=== PATIENT | female | born 1965 ===

== ENCOUNTER 2022-03-22 10:36 | Emergency (ER) | payer MEDICARE, SELFPAY ==
--- NOTE | ~2022-03-22 | XR_ITS ---
EXAMINATION: XR CHEST CLINICAL INFORMATION: Shortness of breath COMPARISON: None TECHNIQUE: 2 views of the chest were obtained. FINDINGS: Normal symmetric lung volumes. No parenchymal consolidation. No pleural effusion. No pneumothorax. Cardiomediastinal silhouette and pulmonary vascularity are within normal limits. No acute osseous abnormalities. XR/XR chest 2V IMPRESSION: Clear lungs
--- NOTE | 2022-03-22 10:48 | ECG_ITS ---
Test Reason : chest pain Blood Pressure : / mmHG Vent. Rate : 113 BPM Atrial Rate : 113 BPM P-R Int : 156 ms QRS Dur : 086 ms QT Int : 312 ms P-R-T Axes : 054 -09 019 degrees QTc Int : 427 ms Sinus tachycardia Minimal voltage criteria for LVH, may be normal variant ( R in aVL ) Borderline ECG When compared with ECG of 31-MAR-2018 10:26, Vent. rate has increased BY 46 BPM Referred By: Generic ED Physician Electronically Signed By:NICK KELLY MD
[2022-03-22 11:11] VITALS: BP 133/76; PULSE 121; RESP 16; TEMP 36.9; O2SAT 98; BMI 39.6
--- NOTE | 2022-03-22 11:12 | ED.GENADULT ---
HPI - General Adult General Chief complaint: Dizziness Stated complaint: Dizzy/Chest pain Time Seen by Provider: 03/22/22 14:35 Related Data Previous Rx's Medication Instructions Recorded albuterol sulfate 90 mcg/actuation 2 inh inhalation Q4-6H PRN 03/23/22 breath activated powder inhaler shortness of breath or wheezing #1 ea amoxicillin 875 mg-potassium 1 tab PO BID 10 days #20 tabs 03/23/22 clavulanate 125 mg tablet ciprofloxacin 0.3 %-dexamethasone 4 drp otic (ears) BID 7 days #7.5 03/23/22 0.1 % ear drops,suspension mL (Ciprodex) doxycycline hyclate 100 mg capsule 100 mg PO BID 10 days #20 caps 03/23/22 ondansetron 4 mg disintegrating 4 mg PO Q6H PRN nausea and 03/23/22 tablet vomiting #10 tabs prednisone 20 mg tablet 40 mg PO DAILY 5 days #10 tabs 03/23/22 Allergies Allergy/AdvReac Type Severity Reaction Status Date / Time No Known Allergies Allergy Verified 03/22/22 20:29 [No Known Allergies*] PMFSH Social History Social History Advance Directives: No Advance Directives Information Provided: No Physical Exam ED Vital Signs: Vital Signs - 24 hr 03/22/22 11:11 Temperature 98.5 F Pulse Rate 121 H Respiratory Rate 16 Blood Pressure 133/76 Pulse Oximetry 98 Oxygen Delivery Method Room Air BMI result Body Mass Index 39.6 Course Course Course Narrative: 56F TKA in August not feeling well, SOB and pain on right with deep inspiration, reports melena, low grade fever. VS Reviewed GEN: mild discomfort EARS: wnl Throat: wnl LUNGS: CTAB CVS: ST, no murmurs Discharge Plan Discharge Clinical Impression: SOB (shortness of breath) Patient Disposition: Elopement Prescriptions: No Action doxycycline hyclate 100 mg capsule 100 mg PO BID 10 Days Qty: 20 0RF amoxicillin-pot clavulanate 875-125 mg tablet 1 tab PO BID 10 Days Qty: 20 0RF ciprofloxacin-dexamethasone [Ciprodex] 0.3-0.1 % drops,suspension 4 drp otic (ears) BID 7 Days Qty: 7.5 0RF prednisone 20 mg tablet 40 mg PO DAILY 5 Days Qty: 10 0RF albuterol sulfate 90 mcg/actuation aerosol powdr breath activated 2 inh inhalation Q4-6H PRN (Reason: shortness of breath or wheezing) Qty: 1 0RF ondansetron 4 mg tablet,disintegrating 4 mg PO Q6H PRN (Reason: nausea and vomiting) Qty: 10 0RF Interventions: ED Discharge Assessment Last Done: 03/22/22 19:08 Discharge Date/Time: 03/22/22 19:09
[2022-03-22 11:40] LABS: MANUAL DIFF FLAG NO
[2022-03-22 11:46] LABS: Basophils Percent Auto 0.3 % (0-2); Eosinophils Percent Auto 0.6 % (0-4); Hematocrit 43.2 % (37.0-47.0); Hemoglobin 14.2 g/dl (12.0-16.0); Imm Gran Abs Auto 0.01 X10*3/uL (0.00-0.03); Imm Gran Pct Auto 0.2 % (0.0-0.4); Lymphocytes Absolute Auto 1.2 X10*3/uL (1.2-4.9); Lymphocytes Percent Auto 19.4 % (20-40); Mean Corpuscular HGB Conc 32.9 g/dl (31.0-35.0); Mean Corpuscular Hemoglobin 28.6 pg (27.0-33.0); Mean Corpuscular Volume 86.9 fL (80.0-98.0); Mean Platelet Volume 10.6 fL (9.4-12.3); Monocytes Absolute Auto 0.6 X10*3/uL (0.1-1.2); Monocytes Percent Auto 9.6 % (2-11); Neutrophils Absolute Auto 4.4 x10*3/uL (2.0-8.3); Neutrophils Percent Auto 69.9 % (45-73); Platelet Count 192 X10*3/uL (160-400); Red Blood Count 4.97 X10*6/uL (4.20-5.50); Red Cell Distribution Width 13.7 % (11.0-16.0); White Blood Count 6.4 X10*3/uL (4.8-10.8)
[2022-03-22 11:47] LABS: INTERNATIONAL NORM RATIO 1.1 (0.9-1.1); Prothrombin Time 12.8 SEC (10.0-13.1)
[2022-03-22 11:49] LABS: D Dimer High Sensitivity 650 NG/ML
[2022-03-22 12:05] LABS: Troponin-I High Sensitivity < 3.5 ng/L (<3.5-17.0)
[2022-03-22 12:12] LABS: Alanine Aminotransferase 36 U/L (0-31); Albumin Level 4.4 g/dL (3.5-5.0); Alkaline Phosphatase 63 U/L (39-117); Anion Gap 12 (12-20); Aspartate Amino Transferase 31 U/L (5-31); Bilirubin Total 0.4 mg/dL (0.0-1.0); Blood Urea Nitrogen 15 mg/dL (9-16); Calcium 9.3 mg/dL (8.4-10.2); Carbon Dioxide 24 mmol/L (22-29); Chloride 107 mmol/L (96-108); Estimated Glomerular Filt Rate > 60; Glucose Random 135 mg/dL (60-115); Potassium 3.6 mmol/L (3.3-5.1); Sodium 139 mmol/L (135-145); Total Protein 7.3 g/dL (6.5-8.0)
[2022-03-22 12:17] LABS: Influenza A PCR NEGATIVE (Negative); Influenza B PCR NEGATIVE (Negative); Resp Syncy Virus RNA Qual PCR NEGATIVE (Negative); SARS COV2 PCR INHOUSE NEGATIVE (Negative)
--- NOTE | 2022-03-22 19:08 | PC.NURSE ---
pt not in waiting room. eloped on prev shift.
== END 2022-03-22 19:09 | disposition left against medical advice (07) ==
PROVIDERS: Student in an Organized Health Care Education/Training Program; Emergency Provider Emergency Medicine; PCP Internal Medicine
DX: R42 Dizziness and giddiness (principal); R07.89 Other chest pain; Z20.822 Contact with and (suspected) exposure to COVID-19; Z79.899 Other long term (current) drug therapy
CPT/HCPCS: 0241U; 36415; 71046; 80053; 84484; 85025; 85379; 85610; 93005; 99283

== ENCOUNTER 2022-03-22 20:11 | Emergency (ER) | payer OTHER, SELFPAY ==
--- NOTE | ~2022-03-22 | CT_ITS ---
EXAMINATION: CT ANGIOGRAM OF THE CHEST WITH AND WITHOUT CONTRAST (CT PULMONARY ANGIOGRAM FOR PE) CLINICAL INFORMATION: Reason for Exam elevated dimer. Shortness of breath. COMPARISON: Chest radiograph 03/22/2022. TECHNIQUE: Prior to contrast administration, noncontrast localization images were obtained. Subsequently, multidetector volumetric imaging was performed from the thoracic inlet to below the diaphragms following the administration of 65 mL Omnipaque 350 intravenous contrast. No contrast reaction reported Sagittal, coronal, and MIP oblique sagittal reformatted images were obtained on the CT workstation, uploaded to PACS, and reviewed. This CT examination was performed using dose optimization techniques as appropriate, variously including the following: *Automated exposure control *Adjustment of mA and/or kV according to patient size (this includes techniques or standardized protocols for targeted exams where dose is matched to indication/reason for exam; i.e. extremities or head) *Use of iterative reconstruction technique Total exam dose-length product 275 mGy-cm FINDINGS: QUALITY OF STUDY/CONTRAST BOLUS: Satisfactory. PULMONARY ARTERIES: No intraluminal filling defects are noted to suggest the presence of pulmonary blood. The main and central pulmonary arteries are normal in caliber. THORACIC AORTA: Normal caliber. Normal contour. LUNG: No pulmonary consolidation or groundglass opacities. No endobronchial lesions or peribronchial wall thickening. PLEURA: No pleural effusion or pneumothorax. MEDIASTINUM: No lymphadenopathy. Normal heart size. No pericardial thickening or fluid collections. Possible small hiatal hernia. No evidence of septal bowing or right heart strain. CHEST WALL/AXILLA: No axillary or internal mammary lymphadenopathy. OSSEOUS STRUCTURES: Moderate multilevel anterior endplate osteophytosis of the thoracic spine. No thoracic vertebral body compression deformities. UPPER ABDOMEN: Unremarkable. No reflux of contrast into the hepatic veins to suggest elevated right heart pressures. CT/CT angio chest PE protocol IMPRESSION: *CT pulmonary angiogram negative for pulmonary emboli. *No acute cardiopulmonary abnormalities identified. Lungs clear. *Small hiatal hernia. VTE: negative
--- NOTE | ~2022-03-22 | CT_ITS ---
EXAMINATION: CT head/brain wo IV con, CT soft tissue neck w IV con CLINICAL INFORMATION: Headache. Left mastoid tenderness. COMPARISON: None. TECHNIQUE: Unenhanced CT the head with multiple coronal and sagittal reformatted images; IV contrast enhanced CT of neck with multiple coronal reformatted images. Intravenous Contrast: Omnipaque [address] examination was performed using dose optimization techniques as appropriate, variously including the following: *Automated exposure control *Adjustment of mA and/or kV according to patient size (this includes techniques or standardized protocols for targeted exams where dose is matched to indication/reason for exam; i.e. extremities or head) *Use of iterative reconstruction technique DLP: 1369 mGy-cm FINDINGS: Unenhanced CT the head: No intracranial hemorrhage, tumors or acute infarcts noted. The ventricles and sulci are normal in size and configuration. No focal parenchymal lesions of the brain or abnormal extra-axial fluid collections identified. The orbits and globes are normal in appearance. No significant opacification of the visualized paranasal sinuses, mastoid air cells and middle ear cavities. The left mastoid air cells are clear. A minimal number of opacified right mastoid air cells in the region of the mastoid tip are noted. Soft tissue density over a 3 mm extent is noted in continuity with the inner margin of the left tympanic membrane. No gross erosion of the scutum identified. (Series 8 image 100). Reticulation of the subcutaneous fat in the region of the left mastoid tip, left suboccipital region left infra auricular region are noted and visualized better damage on the comparison CT of the neck and IV contrast and CT of the neck: Reticulation of the subcutaneous fat is present adjacent to the left mastoid tip is noted in the left suboccipital region and left infra auricular region mild fascial thickening is noted adjacent to the superior margin of the left sternoclavicular muscle and trace fluid measuring 2 mm in width is present medially deep to the fascial margin abutting the superficial margin of the superior aspect of the left sternocleidomastoid muscle. Normal intraluminal opacification is noted within the left carotid system the left internal jugular vein. Normal intraluminal opacification is noted in the lateral left external jugular vein and left occipital vein. A left suboccipital subcutaneous lymph node measures 8 mm in diameter and has the appearance of reactive lymphadenopathy. Several scattered left posterior triangle lymph nodes which are normal in size are identified and exhibit mild enhancement suggesting reactive lymphadenopathy. Normal intraluminal opacification noted in the sigmoid and transverse sinuses bilaterally. The parotid, submandibular and sublingual glands are normal in appearance. The larynx and pharynx are normal in appearance. No prevertebral fluid collections or soft tissue inflammatory changes noted. Minimal thyroid tissue is identified. The visualized lung apices are clear. The mastoid air cells are clear. Soft tissue density abuts the inner margin of the left tympanic membrane is noted above. Moderate intervertebral disc space narrowing and mild to moderate posterior tear endplate osteophytosis is noted at C5-C6 and similar findings to lesser degree are present at C4-C5. CT/CT soft tissue neck w IV con IMPRESSION: Unenhanced CT the head: *No intracranial abnormalities. IV contrast enhanced CT of the neck: *Findings suspicious for cellulitis centered adjacent to the left mastoid tip. Adjacent subcutaneous inflammatory changes are present along with mild thickening of the adjacent superficial layer of the deep cervical fascia with minimal trace fluid subadjacent to the fascia abutting the superior margin of the left sternocleidomastoid muscle. Adjacent reactive lymphadenopathy is present. No evidence of discrete abscess formation. No evidence of mastoiditis. The left mastoid air cells are clear. *Nonspecific mild soft tissue thickening of the left tympanic membrane to a width of 3 mm. As clinically indicated, this finding could be further evaluated with direct visualization and nonemergent temporal bone CT. 3 mm soft tissue density is noted along the inner margin of the left tympanic membrane brain. The left middle ear cavity is otherwise clear. The left mastoid air cells are clear without evidence of mastoiditis. Normal appearance of the intracranial dural sinuses adjacent to the left mastoid including the left sigmoid dural sinus and left transverse dural sinus.
[2022-03-22 20:29] VITALS: BP 98/71; PULSE 104; RESP 18; TEMP 38.1; O2SAT 95; BMI 39.6
[2022-03-22 20:59] LABS: MANUAL DIFF FLAG NO
[2022-03-22 21:00] LABS: Basophils Percent Auto 0.4 % (0-2); Eosinophils Percent Auto 0.2 % (0-4); Hematocrit 39.5 % (37.0-47.0); Hemoglobin 13.1 g/dl (12.0-16.0); Imm Gran Abs Auto 0.02 X10*3/uL (0.00-0.03); Imm Gran Pct Auto 0.2 % (0.0-0.4); Lymphocytes Absolute Auto 1.7 X10*3/uL (1.2-4.9); Lymphocytes Percent Auto 21.2 % (20-40); Mean Corpuscular HGB Conc 33.2 g/dl (31.0-35.0); Mean Corpuscular Hemoglobin 28.1 pg (27.0-33.0); Mean Corpuscular Volume 84.6 fL (80.0-98.0); Mean Platelet Volume 10.1 fL (9.4-12.3); Monocytes Absolute Auto 0.9 X10*3/uL (0.1-1.2); Monocytes Percent Auto 11.7 % (2-11); Neutrophils Absolute Auto 5.3 x10*3/uL (2.0-8.3); Neutrophils Percent Auto 66.3 % (45-73); Platelet Count 195 X10*3/uL (160-400); Red Blood Count 4.67 X10*6/uL (4.20-5.50); Red Cell Distribution Width 13.8 % (11.0-16.0)
--- OUTSIDE RECORDS SUMMARY | 2022-03-22 21:04 | XMS_ITS | Continuity of Care Document ---
:1965 Author Organization [facility] Address [address] [place] [address]- Care Team Providers Name Role Phone Rigoberto Mahajan MD Primary Care Physician [place] [facility] [place] 08[place]13/20 [facility] [address] [place] [id number] Attending Physician: Nellie Blackwell Admitting Physician: Nellie Blackwell Referring Physician: Nellie Blackwell Allergies, Adverse Reactions, Alerts Substance Reaction Severity Status Other Environmental Allergy1 Act cheyanne 1Seasonal Allergiesz Immunizations Not Given Vaccine Date Status Refusal Reason pneumococcal 23-valent vaccine 08/25/13 Not Given P atient Refuses Medications Biotin Biotin, 1, tablet, By Mouth, Daily, Refills 0, Maintenance, 01/07/20 11:21:00 EDT, Supply Start Date: 01/07/20 Status: Ordereddiclofenac 1% topical gel = 2 Gm, Topically, 4 times a day, 0 Refills, Maintenance, 11/29/19 9:31:00 EDT Start Date: 11/29/19 Status: Orderedescitalopram 20 mg oral tablet By Mouth, Daily in AM, 0 Refills, Maintenance, 08/02/13 10:53:36, Tablet Start Date: 08/02/13 Status: Orderedfamotidine 20 mg oral tablet 20 mg, 1, tablet, By Mouth, Daily, # 30 tablet, Refills 0, Maintenance, 11/29/19 9:29:00 EDT Start Date: 11/29/19 Status: OrderedLevothroid 0.1 mg oral tablet 1 tablet = 100 mcg, By Mouth, Daily, # 30 tablet, 0 Refills, Maintenance, 08/26/13 17:34:37, Tablet Start Date: 08/26/13 Status: Orderedomeprazole 20 mg oral enteric coated capsule 2 capsule = 40 mg, By Mouth, Daily, # 14 capsule, 0 Refills, Maintenance, 08/26/13 17:35:00, EC Capsule Start Date: 08/26/13 Stop Date: 09/02/13 Status: OrderedSymbicort 160mcg-4.5mcg Inhaler Inhalation, PRN, Maintenance, 08/26/13 19:56:03 EDT Start Date: 08/26/13 Status: Ordered Problem List Condition Effective Dates Status Health Status Informant Cannabis abuse(Confirmed) Active Mixed Incontinence (Female) Active (Male)(Confirmed) Myalgia(Confirmed) Active Rectocele(Confirmed) Active Major depressive disorder, recurrent Active episode, moderate(Confirmed)
--- OUTSIDE RECORDS SUMMARY | 2022-03-22 21:04 | XMS_ITS | Continuity of Care Document ---
:1965 Author Organization [address], [address] [place] [address]- Care Team Providers Name Role Phone Rigoberto Mahajan MD Primary Care Physician Encounter [facility] [place] Date(s): 04/30/19 - 05/10/[address], [address] [place] [address]- [facility] Attending Physician: Nellie Blackwell Admitting Physician: AdmNellie guerra Referring Physician: AdmtrNellie Allergies, Adverse Reactions, Alerts Substance Reaction Severity Status Other Environmental Allergy1 Act cheyanne 1Seasonal Allergiesz Immunizations Not Given Vaccine Date Status Refusal Reason pneumococcal 23-valent vaccine 08/25/13 Not Given P atient Refuses Medications Adderall XR 20 mg oral capsule, extended release 1 capsule = 20 mg, By Mouth, Daily in AM, 0 Refills, Maintenance, CR Capsule Start Date: 11/26/12 Status: OrderedColace sodium 100 mg oral capsule 1 capsule, By Mouth, 2 times a day, with plenty of water, # 60 capsule, 0 Refills Start Date: 10/06/08 Stop Date: 11/05/08 Status: Ordereddocusate sodium 100 mg oral capsule 1 capsule = 100 mg, By Mouth, 2 times a day, PRN Constipation, 0 Refills, Maintenance, 08/02/13 10:53:47, Capsule Start Date: 08/02/13 Status: Orderedescitalopram 20 mg oral tablet By Mouth, Daily in AM, 0 Refills, Maintenance, 08/02/13 10:53:36, Tablet Start Date: 08/02/13 Status: Orderedhydroxyzine pamoate 50 mg oral capsule By Mouth, Every 6 hours, PRN Nausea Anxiety, 0 Refills, Maintenance, 08/26/13 10:32:22, Capsule Start Date: 08/26/13 Status: OrderedLevothroid 0.1 mg oral tablet 1 tablet = 100 mcg, By Mouth, Daily, # 30 tablet, 0 Refills, Maintenance, 08/26/13 17:34:37, Tablet Start Date: 08/26/13 Status: Orderedomeprazole 20 mg oral enteric coated capsule 2 capsule = 40 mg, By Mouth, Daily, # 14 capsule, 0 Refills, Maintenance, 08/26/13 17:35:00, EC Capsule Start Date: 08/26/13 Stop Date: 09/02/13 Status: OrderedSymbicort 160mcg-4.5mcg Inhaler Inhalation, 2 times a day, Maintenance, 08/26/13 19:56:03 Start Date: 08/26/13 Status: Ordered Problem List Condition Effective Dates Status Health Status Informant Cannabis abuse(Confirmed) Active Mixed Incontinence (Female) Active (Male)(Confirmed) Rectocele(Confirmed) Active Major depressive disorder, recurrent Active episode, moderate(Confirmed)
--- OUTSIDE RECORDS SUMMARY | 2022-03-22 21:04 | XMS_ITS | Continuity of Care Document ---
:1965 Author Organization [facility] Address [address] [place] [address]- Care Team Providers Name Role Phone Rigoberto Mahajan MD Primary Care Physician Encounter [facility] [place] Date(s): 03/28/19 - 04/07/19 [facility] [address] [place] [address]- [facility] Attending Physician: Nellie Blackwell [...]
--- OUTSIDE RECORDS SUMMARY | 2022-03-22 21:04 | XMS_ITS | Continuity of Care Document ---
:1965 Author Organization [facility] Address [address] [place] [address], [address] [place] [address]- Care Team Providers Name Role Phone Rigoberto Mahajan MD Primary Care Physician Encounter [facility] [place] Date(s): 12/10/19 - 01/09/[address], [address] [place] [address]- [facility] Attending Physician: Nellie Blackwell Admitting Physician: Nellie Blackwell Referring Physician: AdmtrNellie Allergies, Adverse Reactions, Alerts [...]
--- OUTSIDE RECORDS SUMMARY | 2022-03-22 21:04 | XMS_ITS | Continuity of Care Document ---
:1965 Author Organization [facility] Address [address] [place] [address]- Care Team Providers Name Role Phone Rigoberto Mahajan MD Primary Care Physician [place] [facility] [place]s): 07/14/20 - 08/13/20 [facility] [address] [place] [id number] Allergies, Adverse Reactions, Alerts Substance Reaction Severity [...]
--- OUTSIDE RECORDS SUMMARY | 2022-03-22 21:04 | XMS_ITS | Continuity of Care Document ---
:1965 Author Organization [facility] Address [address] [place] [address]- Care Team Providers Name Role Phone Rigoberto Mahajan MD Primary Care Phys[id number] Date(s): 05/17/19 - 05/24/19 [id number] [address]- [place] Attending Physician: Rebeca Keyes MD Admitting Physician: Stephy BLOOD, Rebeca Rodas Referring Physician: Rigoberto Mahajan MD Allergies, Adverse Reactions, Alerts Substance Reaction Severity Status Other Environmental Allergy1 Act cheyanne 1Seasonal Allergiesz Immunizations Not Given Vaccine Date Status Refusal Reason pneumococcal 23-valent vaccine 08/25/13 Not Given P atient Refuses Medications escitalopram 20 mg oral tablet By Mouth, Daily in AM, 0 Refills, Maintenance, 08/02/13 10:53:36, Tablet Start Date: 08/02/13 Status: OrderedLevothroid 0.1 mg oral tablet 1 [...] Major depressive disorder, recurrent Active episode, moderate(Confirmed) Vital Signs Most recent to oldest [Reference Range]: 1 Height 155.5 cm (05/17/19 1:53 PM) Weight 84 kg (05/17/19 1:53 PM) Oxygen Saturation [94-100 %] 98 % (05/17/19 1:53 PM) Pulse Rate [55-90 bpm] 80 bpm (05/17/19 1:53 PM) Body Mass Index [18.5-24.99] 34.74 *>HHI* (05/17/19 1:53 PM) Blood Pressure [90-138/55-84 mm Hg] 114/70 mm Hg (05/17/19 1:53 PM) Mode of Delivery (Oxygen) Room air (05/17/19 1:53 PM) Blood pressure sites Arm, left (05/17/19 1:53 PM)
--- OUTSIDE RECORDS SUMMARY | 2022-03-22 21:04 | XMS_ITS | Continuity of Care Document ---
:1965 Author Organization [facility] Address [address] [place] [address]- Care Team Providers Name Role Phone Rigoberto Mahajan MD Primary Care Physician Encounter [facility] [place] Date(s): 07/23/21 - 07/23/[address] [address] Discharge Disposition: A-D/C Home Attending Physician: Trung SILVA MD (Surgeon), Diony Admitting Physician: Trung SILVA MD (Surgeon), Diony Referring Physician: Trung SILVA MD (Surgeon), Diony Allergies, Adverse Reactions, Alerts Substance Reaction Severity Status Other Environmental Allergy1 seasonal Act cheyanne 1Seasonal Allergiesz Immunizations Not Given Vaccine Date Status Refusal Reason pneumococcal 23-valent vaccine 08/25/13 Not Given P atient Refuses Medications acetaminophen 500 mg oral tablet 2 tablet = 1,000 mg, By Mouth, 3 times a day, for 5 days, # 30 tablet, 0 Refills, Acute 07/28/21 13:20:00 EDT, 07/23/21 13:20:00 EDT, [id number], Partial fill upon patient request if the prescription is for a schedule II opioid drug.,... Start Date: 07/23/21 Stop Date: 07/28/21 Status: OrderedBiotin Biotin, 1, tablet, By Mouth, Daily, Refills 0, Maintenance, 01/07/20 11:21:00 EDT, Supply Start Date: 01/07/20 Status: OrderedCalcium, Magnesium and Zinc By Mouth, Daily, 0 Refills, Maintenance, 07/19/21 16:48:00 EDT, Partial fill upon patient request ifthe prescription is for a schedule II opioid drug. Start Date: 07/19/21 Status: Orderedescitalopram 20 mg oral tablet By Mouth, Daily in AM, 0 Refills, Maintenance, 08/02/13 10:53:36, Tablet Start Date: 08/02/13 Status: Orderedfamotidine 20 mg oral tablet 20 mg, 1, tablet, By Mouth, Daily, # 30 tablet, Refills 0, Maintenance, 11/29/19 9:29:00 EDT Start Date: 11/29/19 Status: OrderedFish Oil By Mouth, Daily, 0 Refills, Maintenance, 07/19/21 16:48:00 EDT, Partial fill upon patient request ifthe prescription is for a schedule II opioid drug. Start Date: 07/19/21 Status: OrderedLevothroid 0.1 mg oral tablet 1 tablet = 100 mcg, By Mouth, Daily, # 30 tablet, 0 Refills, Maintenance, 08/26/13 17:34:37, Tablet Start Date: 08/26/13 Status: OrderedMorPHINE inj (PACU ONLY) 2 mg, Injection, IV Push Slowly, Every 5 minutes, Hold for: RR less than 8 OR Sedation Scale of C, PRN for Pain , Moderate, TOTAL Dose of ALL Morphine ORDERED not to exceed 10 mg., Routine, 07/23/21 13:11:00 EDT Start Date: 07/23/21 Stop Date: 07/24/21 Status: DiscontinuedoxyCODONE 5 mg oral tablet 5 mg, 1, tablet, By Mouth, Every 6 hours, PRN, for 3 days, # 8 tablet, Refills 0, Tot. Refills 0, Acute 07/26/21 13:19:00 EDT, for pain, 07/23/21 13:19:00 EDT, Route to Pharmacy Electronically, [id number], Partial fill upon patient re... Start Date: 07/23/21 Stop Date: 07/26/21 Status: OrderedPercocet-5 Tablet 2 tablet, Tablet, By Mouth, Every 4 hours, in PACU ONLY, PRN for Pain , Moderate, if patient can tolerate po, Routine, 07/23/21 13:11:00 EDT Start Date: 07/23/21 Stop Date: 07/24/21 Status: DiscontinuedSymbicort 160mcg-4.5mcg Inhaler Inhalation, PRN, Maintenance, 08/26/13 19:56:03 EDT Start Date: 08/26/13 Status: OrderedTylenol 8 Hour 650 mg oral tablet, extended release 2 tablet = 1,300 mg, By Mouth, Every 8 hours, PRN as needed for pain, # 50 tablet, 0 Refills, Maintenance, 07/19/21 16:49:00 EDT, ER Tablet, Partial fill upon patient request if the prescription is fora schedule II opioid drug. Start Date: 07/19/21 Status: OrderedZyrTEC 10 mg oral tablet 1 tablet = 10 mg, By Mouth, Daily, PRN for allergy symptoms, # 10 tablet, 0 Refills, Maintenance, 07/19/21 16:49:00 EDT, Tablet, Partial fill upon patient request if the prescription is for a schedule II opioid drug. Start Date: 07/19/21 Status: Ordered Problem List Condition Effective Dates Status Health Status Informant Cannabis abuse(Confirmed) Active Mixed Incontinence (Female) Active (Male)(Confirmed) Myalgia(Confirmed) Active Obese class II(Confirmed) Active Rectocele(Confirmed) Active Major depressive disorder, recurrent Active episode, moderate(Confirmed) Vital Signs Most recent to oldest 1 2 3 [Reference Range]: Height 155 cm 155 cm (07/23/21 11:24 AM) (07/19/21 4:54 PM) Weight 88.5 kg 86.5 kg (07/23/21 11:24 AM) (07/19/21 4:54 PM) Oxygen Saturation [94-100 94 % 99 % 98 % %] (07/23/21 2:00 PM) (07/23/21 1:45 PM) (07/23/21 1:30 P M) Pulse Rate [55-90 bpm] 82 bpm (07/23/21 11:24 AM) Body Mass Index 36.84 36 [18.5-24.99] *>HHI* *>HHI* (07/23/21 11:24 AM) (07/19/21 4:54 PM) Blood Pressure 121/67 mm Hg 126/81 mm Hg 140/75 mm Hg [90-138/55-84 mm Hg] (07/23/21 2:00 PM) (07/23/21 1:45 PM) *H* (07/23/21 1:30 PM) Respiratory Rate [16-30 18 br/min 35 br/min 16 br/mi n br/min] (07/23/21 2:24 PM) *H* (07/23/21 1:56 PM ) (07/23/21 2:00 PM) Temperature [96.8-100.4 98.3 DegF 99.0 DegF DegF] (07/23/21 1:15 PM) (07/23/21 11:24 AM) Liters per Minute 6 L/min (07/23/21 1:15 PM) Mode of Delivery (Oxygen) Room air Room air Simple face mask (07/23/21 3:00 PM) (07/23/21 1:45 PM) (07/23/21 1:15 P M) Blood pressure sites Arm, right Arm, left (07/23/21 1:15 PM) (07/23/21 11:24 AM) Temperature Route Temporal Temporal (07/23/21 1:15 PM) (07/23/21 11:24 AM) Dry Weight 88.5 kg 86.5 kg (07/23/21 11:24 AM) (07/19/21 4:54 PM) Weight Obtained Via Standing scale Patient/family stated (07/23/21 11:24 AM) (07/19/21 4:54 PM) Dry Weight Obtained Via Standing scale Patient/family stated (07/23/21 11:24 AM) (07/19/21 4:54 PM)
--- OUTSIDE RECORDS SUMMARY | 2022-03-22 21:04 | XMS_ITS | Continuity of Care Document ---
:1965 Author Organization [address], [address] [place] [address]- Care Team Providers Name Role Phone Keyshawn BLOOD, Rigoberto Pastor Primary Care Physician Encounter [facility] Date(s): 11/06/19 - 12/06/[address], [address] [place] [address]- [facility] Allergies, Adverse Reactions, Alerts Substance Reaction Severity Status Other Environmental Allergy1 Act cheyanne 1Seasonal Allergiesz Immunizations Not Given Vaccine Date Status Refusal Reason pneumococcal 23-valent vaccine 08/25/13 Not Given P atient Refuses Medications diclofenac 1% topical gel = 2 Gm, Topically, [...] Start Date: 08/26/13 Stop Date: 09/02/13 Status: Orderedpantoprazole 40 mg oral delayed release tablet 1 tablet = 40 mg, By Mouth, Daily, 0 Refills, Maintenance, 11/29/19 9:30:00 EDT Start Date: 11/29/19 Status: OrderedSymbicort 160mcg-4.5mcg Inhaler Inhalation, PRN, Maintenance, 08/26/13 19:56:03 EDT Start Date: 08/26/13 Status: Ordered Problem List Condition Effective Dates Status Health Status Informant Cannabis abuse(Confirmed) Active Mixed Incontinence (Female) Active (Male)(Confirmed) Rectocele(Confirmed) Active Major depressive disorder, recurrent Active episode, moderate(Confirmed)
--- OUTSIDE RECORDS SUMMARY | 2022-03-22 21:04 | XMS_ITS | Continuity of Care Document ---
:1965 Author Organization [facility] Address [address] [place] [address]- Care Team Providers Name Role Phone Rigoberto Mahajan MD Primary Care [id number] Date(s[facility]15[facility] - 01/14/22 [facility] [address] [place] [id number] Allergies, Adverse Reactions, Alerts Substance Reaction Severity [...] 08/26/13 17:34:37, Tablet Start Date: 08/26/13 Status: Ordered Problem List Condition Confirmation Course Effective Dates Status Health Stat us Informant Cannabis abuse Confirmed Active Mixed Incontinence Confirmed Active (Female) (Male) Myalgia Confirmed Active Obese class II Confirmed Active Rectocele Confirmed Active Major depressive Confirmed Active disorder, recurrent episode, moderate Social History Social History Type Response Smoking Status Never (less than 100 in life time) entered on: 01/11/22 Sex Patient Care team information PersonnelName: Rigoberto Mahajan MD Address: Address: [address] [place] [address] [address] [place] [address]
--- OUTSIDE RECORDS SUMMARY | 2022-03-22 21:04 | XMS_ITS | Continuity of Care Document ---
:1965 Author Organization [facility] Address [address] [address]- Care Team Providers Name Role Phone Rigoberto Mahajan MD Primary [id number] Date(s[facility] 07/[facility] - 07/16/19 [id number], [place] [address]- [place] Attending Physician: Rebeca Keyes MD Admitting Physician: Stephy BLOOD, eRbeca Rodas Referring Physician: Rebeca Keyes MD Allergies, Adverse Reactions, Alerts Substance Reaction [...]
--- OUTSIDE RECORDS SUMMARY | 2022-03-22 21:04 | XMS_ITS | Continuity of Care Document ---
:1965 Author Organization [facility] Address [address] [place] [address]- Care Team Providers Name Role Phone Rigoberto Mahajan MD Primary Care Physician Encounter [facility] [place] Date(s): 12/16/19 - 01/15/20 [facility] [address] [place] [address]- [facility] Allergies, Adverse Reactions, Alerts Substance Reaction Severity [...]
--- OUTSIDE RECORDS SUMMARY | 2022-03-22 21:04 | XMS_ITS ---
:1965 Author Name Rigoberto Mahajan Care Team Providers Name Role Phone Rigoberto Mahajan Unavailable Unavailable PROBLEMS Type Condition ICD9-CM Code EKS36-UT Code Onset Condition SNO MED Code Dates Status Problem Arthritis - 719.97 Active 77014510 2 Degenerative Problem Arthralgia 719.40 Active 13656552 Problem Pain in Limb 729.5 Active 8860887 2 ALLERGIES Substance Reaction Event Type Date Status Codeine sick Drug Allergy Jan, Inactive ENCOUNTERS Encounter Location Date Diagnosis [address] Jan, [place] [address] Apr, [place] [address] Feb, Jennifer ntar Fasciitis 728.71 [facility] [place] ; Pain in Limb 729.5 ; [address] Bursitis 727.3 ; Plantar Fasciitis 728.71 and Myositis [address]29.[address] Jan, [place] [address] Jan, Art hralgia 719.40 ; Pain [place] [facility] [place] in Limb 729.5 ; Arthritis [address] - Degenerative 7 19.97 ; Neuralgia - Neur itis 729.2 ; Plantar Fasciitis 728.71 and Myosi tis 729.[address] Dec, [place] [address] Nov, Matthew n in Limb 729.5 ; [place] Arthralgia 719. 40 ; [address] Arthritis - Dege nerative 719.97 and Neura lgia - Neuritis 729.2 IMMUNIZATIONS No Known Immunizations SOCIAL HISTORY Never Assessed REASON FOR REFERRAL Referring Provider First Name Rigoberto Referring Provider Last Name Keyshawn Referred [facility] Referred Provider Sharda Maurice Referred Address [address] [facility] [place],[address] Referred Provider Specialty Podiatry FUNCTIONAL STATUS PLAN OF CARE Activity Details Referral [address] [place] [address], [facility] [place], [address], [email or web address], Pending Test X ray : Foot, left 3V Future/Pending Procedure ,[id number] TENDON SHEAT H/LIGAMENT Future/Pending Procedure B0402-Pzptnxvni 3mg Future/Pending Procedure , J0702- INJECT or DRAI N, JOINT/BURSA Future/Pending Procedure Z4912-Wnzgwafws 3mg VITAL SIGNS Height N/A in 2012-03-14 Weight 185 lbs 2012-03-14 BMI 34.95 kg/m2 2012-03-14 Heart Rate 79 /min 2012-03-14 Blood pressure systolic 120 mm Hg 2012-03-14 Blood pressure diastolic 80 mm Hg 2012-03-14 MEDICATIONS Medication Instructions Dosage Frequency Start End Duration Statu s Date Date Naproxen 500 MG Orally Twice a 1 tablet 12h 30 day(s ) Active day Feldene 20 MG Orally Once a 1 capsule 24h Jan, day(s) Active day with food 2011 Lexapro 5 MG Orally Once a 2 tablets 24h 30 day(s) A ctive day Omeprazole 40 MG Orally Once a 1 capsule 24h 30 day( s) Active day Physical Therapy 3-4x per Feb, Active week for 2011 3-4 weeks Levothyroxine Orally Once a 1 tablet 24h 30 day(s) A ctive Sodium 150 MCG day every morning on an empty stomach Adderall 20 MG Orally Once a 1 tablet 24h Ac tive day Night Splint AFO as directed Feb, Act cheyanne - L1930 2011 PROCEDURES Procedure Date Ordered Result Body Site DRAIN/INJECT, JOINT/BURSA Dec 08, 2011 STAT AFO-SFT INTERFCE MATL ADJ FIT Mar 14, 2012 INJ BETAMETHSN ACTAT&SOD PHOSPH-3MG Feb 08, 2012 INJ BETAMETHSN ACTAT&SOD PHOSPH-3MG Dec 08, 2011 INJ TENDON SHEATH/LIGAMENT Feb 08, 2012 X-RAY EXAM OF LEFT FOOT 3V Dec 08, 2011 RESULTS No Results REASON FOR VISIT Insurance Providers [facility] Health Member Patient Patient Patient Patient Patient Subscriber Subscriber Subscriber Group Insurance Plan Plan Plan Plan ID Relationship Address Phone Name Date of ID Name Date of No Type Insurance Insurance Insurance Coverage to Subscriber Address Phone Name Dates [facility] [phone] [facility] [id number] All Others [id number] All Others [place] [id number] [facility] [id number] MEDICAL (GENERAL) HISTORY Type Description Date Medical History anxiety Medical History Arthritis Medical History back, hip, knee pain Medical History neuropathy Medical History depression Medical History headaches/migraines Medical History sciatica Medical History thyroid disorder Surgical History carpal tunnel surgery Surgical History breast surgery Surgical History tubal ligation Surgical History lap band Hospitalization History [place] [facility] [place] right moiz ed chest pain. 01/25/2012
--- OUTSIDE RECORDS SUMMARY | 2022-03-22 21:04 | XMS_ITS | Continuity of Care Document ---
:1965 Author Organization [facility] Address [address] [place] [address]- Care Team Providers Name Role Phone Rigoberto Mahajan MD Primary Care Physician [id number] Date(s): 01/01/19 - 04/27/19 [facility] [address] [place] [address] Attending Physician: Indira Almodovar MD Admitting Physician: Indira Almodovar MD Referring Physician: Jennifer Mclain MD Allergies, Adverse Reactions, Alerts Substance Reaction [...]
--- OUTSIDE RECORDS SUMMARY | 2022-03-22 21:04 | XMS_ITS | Continuity of Care Document ---
:1965 Author Organization [facility] Address [address] [facility], [address] [place] [address]- Care Team Providers Name Role Phone Rigoberto Mahajan MD Primary Care Physician Encounter 06/17/20 - 10/01/20 [facility] [address], [address] [place] [address]- Attending Physician: Rigoberto Mahajan MD Admitting Physician: Rigoberto Mahajan MD Referring Physician: Rigoberto Mahajan MD Allergies, Adverse [...]
--- OUTSIDE RECORDS SUMMARY | 2022-03-22 21:04 | XMS_ITS | Continuity of Care Document ---
:1965 Author Organization [address] [place] [address]- Care Team Providers Name Role Phone Keyshawn BLOOD, Rigoberto Pastor Primary Care Physician Encounter [facility] Date(s): 12/04/19 - 01/03/[address], [address] [place] [address]- [facility] Allergies, Adverse Reactions, Alerts Substance Reaction Severity [...]
--- OUTSIDE RECORDS SUMMARY | 2022-03-22 21:04 | XMS_ITS | Continuity of Care Document ---
:1965 Author Organization [facility] Address [address] [place] [address]- Care Team Providers Name Role Phone Keyshawn BLOOD, Rigoberto Pastor Primary Care Phys[id number] Date(s): 12/18/20 - 01/17/21 [facility] [address] [place] [address] Referring Physician: Calista Ren MD Allergies, Adverse Reactions, Alerts Substance Reaction [...]
--- OUTSIDE RECORDS SUMMARY | 2022-03-22 21:04 | XMS_ITS | Continuity of Care Document ---
:1965 Author Organization [facility] Address [address] [address]- Care Team Providers Name Role Phone Rigoberto Mahajan MD [id number](s): 07/09/19 - 07/19/19 [facility] [address] [address]- [place] Attending Physician: Nellie Blackwell Admitting Physician: Nellie [...]
--- OUTSIDE RECORDS SUMMARY | 2022-03-22 21:04 | XMS_ITS | Continuity of Care Document ---
:1965 Author Organization [facility] [employer] [facility] Address [address] [place] [address]- Care Team Providers Name Role Phone Rigoberto Mahajan MD Primary Care Physician En[place] [facility] Date(s): 02/18/22 - 03/20/22 [facility] [employer] [address] [place] [address] Attending Physician: Nellie Blackwell Admitting Physician: Nellie [...] on: 01/11/22 Sex Patient Care team information Care Team PersonnelName: Prisca Trujillo RN Position: S RN Member Role: Primary Care Nurse Name: Rigoberto Mahajan MD Position: [facility] Outreach Member Role: PCP Address: Address: [address] [facility] [address] [place], [place] [address]- Care Team Related PersonsName: DARRYL MONROY Address: home [address] [place] [address]
--- OUTSIDE RECORDS SUMMARY | 2022-03-22 21:04 | XMS_ITS | Continuity of Care Document ---
:1965 Author Organization [facility] Address [address] [place] [address]- Care Team Providers Name Role Phone Rigoberto Mahajan MD Primary Care Physician [id number] Date(s): 07/12/19 - 07/19/19 [id number] [address]- [place] Attending Physician: Rebeca Keyes MD [...]
--- OUTSIDE RECORDS SUMMARY | 2022-03-22 21:04 | XMS_ITS | Continuity of Care Document ---
:1965 Author Organization [facility] [employer] Address [address] [place] [address], [address] [place] [address]- Care Team Providers Name Role Phone Rigoberto Mahajan MD Primary Care Physician [id number] Date(s): 01/11/22 - 03/17/22 [facility] [place] [employer] [address] [place] [address] Attending Physician: Helena Rosas MD Admitting Physician: Helena Rosas MD Referring Physician: Rigoberto Mahajan MD Allergies, [...] Care Nurse Name: Rigoberto Mahajan MD Position: [facility] Outreach Member Role: PCP Address: Address: [address] [facility] [address] [facility] [address] [place], [place] [address]- Care Team Related PersonsName: DARRYL MONROY Address: home [address] [place] [address]
--- OUTSIDE RECORDS SUMMARY | 2022-03-22 21:04 | XMS_ITS | Continuity of Care Document ---
:1965 Author [facility] Address [address] [place] [address], [address] [place] [address]- Care Team Providers Name Role Phone Rigoberto Mahajan MD Primary Care Physician Encounter [facility] Date(s): 01/11/22 - 03/20/22 [facility] [employer] [address] [place] [address], [address] [place] [address] Attending Physician: Helena Rosas MD Referring Physician: Rigoberto [...] Care Nurse Name: Rigoberto Mahajan MD Position: S Outreach Member Role: PCP Address: Address: [address] [place] [address] [place] [address] [place] [address]- Care Team Related PersonsName: DARRYL MONROY Address: home [address] [place] [address]
--- OUTSIDE RECORDS SUMMARY | 2022-03-22 21:04 | XMS_ITS | Continuity of Care Document ---
:1965 Author Organization [address] [place] [address]- Care Team Providers Name Role Phone Rigoberto Mahajan MD Primary Care Physician [facility] Date(s): 12/10/19 - 12/17/[address], [address] [place] [address]- [facility] Attending Physician: Leonardo Mcconnell MD Referring Physician: Rigoberto Mahajan MD Allergies, [...] oldest [Reference Range]: 1 Height 155.5 cm (12/04/19 2:57 PM) Weight 85.8 kg (12/04/19 2:57 PM) Body Mass Index [18.5-24.99] 35.48 *>HHI* (12/04/19 2:57 PM)
--- OUTSIDE RECORDS SUMMARY | 2022-03-22 21:04 | XMS_ITS | Continuity of Care Document ---
:1965 Author Organization [facility] Address [address] [address]- Care Team Providers Name Role Phone Rigoberto Mahajan MD Primary Care Physician [id number] Date(s): 07/12/19 - 07/22/19 [facility] [address] [address]- [place] Attending Physician: Nellie Blackwell Admitting [...]
--- OUTSIDE RECORDS SUMMARY | 2022-03-22 21:04 | XMS_ITS | Continuity of Care Document ---
:1965 Author Organization [address] [place] [address]- Care Team Providers Name Role Phone Rigoberto Mahajan MD Primary Care Physician En[facility] Date(s): 03/01/19 - 05/30/[address], [address] [place] [address]- [facility] Attending Physician: Leonardo Mcconnell MD Referring Physician: [...]
--- OUTSIDE RECORDS SUMMARY | 2022-03-22 21:04 | XMS_ITS | Continuity of Care Document ---
:1965 Author Organization [facility] [employer] [facility] p Address [address] [place] [address]- Care Team Providers Name Role Phone Rigoberto Mahajan MD Primary Care Physician Encounter [facility] Date(s): 02/15/22 - 03/17/22 [facility] [employer] [address] [address] Attending Physician: Nellie Blackwell Admitting Physician: Nellie [...] Care Nurse Name: Rigoberto Mahajan MD Position: [facility] Outreach Member Role: PCP Address: Address: [address] [facility] [address] [place], [place] [address]- Care Team Related PersonsName: DARRYL MONROY Address: home [address] [place] [address]
[2022-03-22 21:25] LABS: Alanine Aminotransferase 36 U/L (0-31); Albumin Level 4.1 g/dL (3.5-5.0); Alkaline Phosphatase 67 U/L (39-117); Anion Gap 12 (12-20); Aspartate Amino Transferase 28 U/L (5-31); Bilirubin Total 0.4 mg/dL (0.0-1.0); Blood Urea Nitrogen 15 mg/dL (9-16); Calcium 9.1 mg/dL (8.4-10.2); Carbon Dioxide 23 mmol/L (22-29); Chloride 107 mmol/L (96-108); Creatinine Clr Calc Pharmacy 86.9; Estimated Glomerular Filt Rate > 60; Glucose Random 108 mg/dL (60-115); Magnesium 1.9 mg/dL (1.6-2.6); Potassium 3.7 mmol/L (3.3-5.1); Sodium 138 mmol/L (135-145); Total Protein 6.9 g/dL (6.5-8.0)
[2022-03-22] MEDS: Acetaminophen 325 MG TABLET 975 MG PO (21:42)
[2022-03-22 21:50] LABS: Influenza A PCR NEGATIVE (Negative); Influenza B PCR NEGATIVE (Negative); Resp Syncy Virus RNA Qual PCR NEGATIVE (Negative); SARS COV2 PCR INHOUSE NEGATIVE (Negative)
[2022-03-22 21:58] LABS: D Dimer High Sensitivity 839 NG/ML
[2022-03-22 22:02] LABS: C Reactive Protein 8.77 mg/dL (< or = 0.50)
--- NOTE | 2022-03-22 22:07 | ED_ITS ---
HPI - General Adult General Chief complaint: Headache Stated complaint: head pain Time Seen by Provider: 03/22/22 20:28 Source: patient Mode of arrival: EMS Limitations: no limitations History of Present Illness HPI narrative: 56-year-old female past medical history of migraines, gastric lap band, gastric ulcers presents to the emergency department following 3 days of flu-like symptoms and chest pain. Associated symptoms include headache (occipital region, hx of migraines, associated aura with flashing lights, no trauma, not on thinners), subjective fever. chills, body aches, ear pain, swollen lymph nodes, nausea, vomiting, imbalance, photophobia, phonophobia, severe left sided ear pain and pain behind left ear and diarrhea with dark colored stool. Patient states that symptoms started on monday with general malaise and fatigue have worsened since. Patient describes the chest pain as sharp, colicky in nature, worse with inspiration. Patient has taken Tylenol, ibuprofen at home, with minimal early. COVID home test negative on Monday. Patient with hx of melena every time she takes NSAIDs, most recent episode of melena this morning. Denies visual changes, urinary or fecal incontinence, saddle paresthesia, lumbar back pain, numbness and/or tingling of the extremities. Has been ambulatory at home without difficulty. Has never experienced anything like this before. NIHSS-0 Related Data Previous Rx's Medication Instructions Recorded albuterol sulfate 90 mcg/actuation 2 inh inhalation Q4-6H PRN 03/23/22 breath activated powder inhaler shortness of breath or wheezing #1 ea amoxicillin 875 mg-potassium 1 tab PO BID 10 days #20 tabs 03/23/22 clavulanate 125 mg tablet ciprofloxacin 0.3 %-dexamethasone 4 drp otic (ears) BID 7 days #7.5 03/23/22 0.1 % ear drops,suspension mL (Ciprodex) doxycycline hyclate 100 mg capsule 100 mg PO BID 10 days #20 caps 03/23/22 prednisone 20 mg tablet 40 mg PO DAILY 5 days #10 tabs 03/23/22 Allergies Allergy/AdvReac Type Severity Reaction Status Date / Time No Known Allergies Allergy Verified 03/22/22 20:29 [No Known Allergies*] Review of Systems Review of Systems: Constitutional : No Weight loss, + Fever, + Chills, + Fatigue, + Malaise ENT/Mouth : No sore throat, No Rhinorrhea, + ear pain Eyes: No Eye Pain, No Swelling, No Redness Cardiovascular : + Chest Pain, + SOB, No Dyspnea on Exertion, No Orthopnea, No Edema, No Palpitations Respiratory : No Cough, No Sputum, No Wheezing Gastrointestinal : + Nausea, + Vomiting, + Diarrhea, No Constipation, No abdominal Pain, No Hematochezia, No Melena Genitourinary : No Dysuria, No Urinary Frequency, No Hematuria, Musculoskeletal : No joint pain, No Myalgias, No Joint Swelling Skin : No Skin Lesions, No rash Neuro : No Weakness, No Numbness, No Dizziness, + Headache Psych : No Anxiety/Panic, No Depression All other systems reviewed and are negative Yes all other systems are reviewed and are negative [facility] Past Medical History Attestation statement: The following information was validated with the patient. Source: old records reviewed and nursing notes reviewed Social History Social History Advance Directives: No Advance Directives Information Provided: No Physical Exam ED Vital Signs: Vital Signs - 24 hr 03/22/22 20:29 03/22/22 23:47 Temperature 100.5 F H 99.8 F Pulse Rate 104 H 91 Respiratory Rate 18 18 Blood Pressure 98/71 120/69 Pulse Oximetry 95 100 Oxygen Delivery Method Room Air Room Air BMI result Body Mass Index 39.6 febrile, tachycardia, hypotension, likely secondary to infection Appearance: Alert.? Oriented X3.? No acute distress.? Head: Normocephalic, atraumatic, no step-offs or deformities Eyes: Pupils equal, round and reactive to light.?extraocular movements intact ENT: Pharynx normal.?Tonsillar pillars without erythema or exudates bilaterally. External auditory canals without erythema bilaterally. TMs without perforation, L TM thick and bulging w/ errythema, right TM normal. Pain w/ manipulation of left ear. Left post-auricular area with erythema, tender to palpation. Moist mucous membranes. Neck: Normal inspection.? Neck supple.? Negative Kernig and Brudzinski. CVS: Normal heart rate and rhythm.? Pulses normal.? Respiratory: No respiratory distress.? Breath sounds normal.? Abdomen: Soft and nontender.? active bowel sounds all 4 quadrants. Skin: Skin warm and dry.? Normal skin color.? Normal skin turgor.? Extremities: No lower extremity edema.? No calf ttp. 5/5 strength to bilateral upper and lower extremities. Homana's sign negative. Back: No midline tenderness, no C-spine tenderness, full range of motion, no CVA tenderness bilaterally Neuro: Oriented X 3.? No motor deficit.? No sensory deficit. CN 2-12 intact Heeh steady gait.l-to-bergeron, nose to finger intact. ambulating with a steady gait. Kernig and Brudzinski negative. NIHSS-0 Course Course Course Narrative: I had doctors carmita review patient case, laboratory studies, imaging, and evaluate the patient himself. Agrees with my diagnosis and treatment plan. Will discharge home with antibiotics. Reevaluation(s) Reevaluation #1: CBC appears to be within normal limits. Chemistry with no acute electrolyte abnormalities requiring intervention. Patient had negative trop and ekg, unlikley ACS. Flu/COVID/RSV negative. CT of the head within normal limits and soft tissue neck CT with contrast revealing thick in left-sided tympanic membrane and cellulitis adjacent to the left mastoid tip. There is also present lymphadenopathy. After patient was scanned realize D-dimer was positive, she will need a CTA of the chest to rule out PE. I did explain to patient that scanning twice in 1 day is not ideal however we could pre hydrate and post hydrate to prevent kidney injury, I explained risks of ANA to patient, she verbalizes understanding gives me verbal consent to obtain CTA. CTA will be obtained at this time. Will hydrate patient afterwards. Time: 23:38 Reevaluation #2: CTA with no PE. Patient feeling slightly better. Patient will be discharged home advised to return with any new or worsening symptoms. Will discharge her on Augmentin for otitis media, Ciprodex drops for otitis externa, doxycycline will be added for posterior auricular cellulitis. Will give her prednisone for lymphadenopathy and give her an albuterol inhaler for upper respiratory symptoms. Advised to return with any new or worsening symptoms. Educated on worrisome signs and symptoms and when to return. Comfortable discharge home with prompt PCP follow-up. Medications Administered Discontinued Medications Generic Name Dose Route Start Last Admin Trade Name Freq PRN Reason Stop Dose Admin Acetaminophen 975 mg 03/22/22 21:23 03/22/22 21:42 Acetaminophen 325 Mg Tablet PO 03/22/22 21:24 975 mg ONCE ONE Administration Sodium Chloride 1,000 mls @ 999 mls/hr 03/22/22 22:45 03/23/22 01:24 Ns IV 03/22/22 23:45 Infused .Q1H1M KRISTEL Infusion Sodium Chloride 1,000 mls @ 999 mls/hr 03/22/22 22:45 03/23/22 01:24 Ns IV 03/22/22 23:45 999 mls/hr .Q1H1M KRISTEL Administration Piperacillin Sod/Tazobactam 50 mls @ 100 mls/hr 03/22/22 23:35 03/23/22 01:24 Sod 3.375 gm/ Sodium Chloride IV 03/23/22 00:04 100 mls/hr ONCE ONE Administration Iohexol 100 ml 03/22/22 22:22 03/22/22 22:26 Iohexol 350 Mg/Ml 100 Ml Infus..Btl IV 03/22/22 22:23 60 ml ONCE ONE Administration Iohexol 65 ml 03/23/22 00:47 03/23/22 00:48 Iohexol 350 Mg/Ml 100 Ml Infus..Btl IV 03/23/22 00:48 65 ml ONCE ONE Administration Morphine Sulfate 4 mg 03/22/22 22:46 03/22/22 23:29 Morphine Sulfate 4 Mg/Ml Cartridge IVPUSH 03/22/22 22:47 4 mg ONCE ONE Administration Protocol Ondansetron HCl 4 mg 03/22/22 22:46 03/22/22 23:29 Ondansetron Hcl 4 Mg/2 Ml Vial IVPUSH 03/22/22 22:47 4 mg ONCE ONE Administration Medical Decision Making Medical Decision Making [facility] Narrative: 2221 56 year old female with 5 days of flu like sx with chest pain. headache (occipital region, hx of migraines, associated aura with flashing lights, no trauma, not on thinners), subjective fever. chills, body aches, ear pain, swollen lymph nodes, nausea, vomiting, imbalance, photophobia, phonophobia and diarrhea with dark colored stool. PE - w/ pharynx normal.?Tonsillar pillars without erythema or exudates bilaterally. External auditory canals without erythema bilaterally. TMs without perforation, L TM thick and bulging w/ errythema, right TM normal. Pain w/ manipulation of left ear. Left post-auricular area with erythema, tender to palpation. Moist mucous membranes. RRR. Lungs clear. Abdomen soft nontender nondistended. Likely acute otitis media w/ posterior left ear cellulitis vs mastoiditis vs bronchitis vs pna vs URI. Unlikely PE, ACS, stroke, posterior stroke, intracranial hemorrhage, aseptic or bacterial meningitis or encephalitis. Plan at this times in viral panel, labs, imaging, Critical Care Time Critical Care Time Critical Care Time: Yes Total Critical Care Time: 35 Attestation: I attest to this time spent taking care of the patient, obtaining history, physical, reviewing labs, imaging, speaking to my attending, speaking to specialist. Discharge Plan Discharge Clinical Impression: Otitis media, Otitis externa, Cellulitis, Upper respiratory infection, Nausea & vomiting Patient Disposition: Home, Self-Care Instructions: Cellulitis (ED), Otitis Externa (ED), Upper Respiratory Infection (ED), Acute Nausea and Vomiting (ED), Warm Compress or Soak (ED) Additional Instructions: Take your medications as prescribed. If you were prescribed antibiotics today, it is important that you take your medication to their entirety, do not skip any doses, do not finish them early. Follow-up with your primary care provider this week. Follow-up with ENT information below Return to the emergency department with new or worsening symptoms. Such as fevers, chills, chest pain, shortness of breath, nausea, vomiting, dizziness, headache, vision changes, lethargy In case of emergency call [address] scan results. CT/CT angio chest PE protocol IMPRESSION: *CT pulmonary angiogram negative for pulmonary emboli. *No acute cardiopulmonary abnormalities identified. Lungs clear. *Small hiatal hernia. ? VTE: negative CT/CT soft tissue neck w IV con IMPRESSION: Unenhanced CT the head: *No intracranial abnormalities. ? IV contrast enhanced CT of the neck: *Findings suspicious for cellulitis centered adjacent to the left mastoid tip. Adjacent subcutaneous inflammatory changes are present along with mild thickening of the adjacent superficial layer of the deep cervical fascia with minimal trace fluid subadjacent to the fascia abutting the superior margin of the left sternocleidomastoid muscle. Adjacent reactive lymphadenopathy is present. No evidence of discrete abscess formation. No evidence of mastoiditis. The left mastoid air cells are clear. *Nonspecific mild soft tissue thickening of the left tympanic membrane to a width of 3 mm. As clinically indicated, this finding could be further evaluated with direct visualization and nonemergent temporal bone CT. 3 mm soft tissue density is noted along the inner margin of the left tympanic membrane brain. The left middle ear cavity is otherwise clear. The left mastoid air cells are clear without evidence of mastoiditis. Normal appearance of the intracranial dural sinuses adjacent to the left mastoid including the left sigmoid dural sinus and left transverse dural sinus. CT/CT head/brain wo IV con IMPRESSION: Unenhanced CT the head: *No intracranial abnormalities. ? Prescriptions: New doxycycline hyclate 100 mg capsule 100 mg PO BID 10 Days Qty: 20 0RF amoxicillin-pot clavulanate 875-125 mg tablet 1 tab PO BID 10 Days Qty: 20 0RF ciprofloxacin-dexamethasone [Ciprodex] 0.3-0.1 % drops,suspension 4 drp otic (ears) BID 7 Days Qty: 7.5 0RF prednisone 20 mg tablet 40 mg PO DAILY 5 Days Qty: 10 0RF albuterol sulfate 90 mcg/actuation aerosol powdr breath activated 2 inh inhalation Q4-6H PRN (Reason: shortness of breath or wheezing) Qty: 1 0RF Referrals: Sherman Correa [Physician] - 1 week Rigoberto Mahajan MD [Primary Care Provider] - 2 days Stand Alone Forms: Work/School Release
[2022-03-22] MEDS: iohexoL 350 MG/ML 100 ML INFUS..BTL IV (22:26)
[2022-03-22 22:44] LABS: Erythrocyte Sedimentation Rate 40 MM/HR (0-20)
[2022-03-22] MEDS: 0.9 % Sodium Chloride 1,000 ML 999 ML IV (23:28)
[2022-03-22] MEDS: Morphine Sulfate 4 MG/ML CARTRIDGE IVPUSH (23:29)
[2022-03-22] MEDS: ondansetron HCL 4 MG/2 ML VIAL IVPUSH (23:29)
[2022-03-22 23:47] VITALS: BP 120/69; PULSE 91; RESP 18; TEMP 37.7; O2SAT 100
[2022-03-23 00:27] LABS: Lactic Acid 0.5 mmol/L (0.5-2.0)
--- NOTE | 2022-03-23 00:35 | ECG_ITS ---
Test Reason : SOB Blood Pressure : / mmHG Vent. Rate : 080 BPM Atrial Rate : 080 BPM P-R Int : 170 ms QRS Dur : 086 ms QT Int : 386 ms P-R-T Axes : 050 -04 013 degrees QTc Int : 445 ms Normal sinus rhythm Minimal voltage criteria for LVH, may be normal variant ( R in aVL ) Borderline ECG When compared with ECG of 22-MAR-2022 11:23, No significant change was found Referred By: Cameron Lozano Electronically Signed By:NICK KELLY MD
[2022-03-23] MEDS: iohexoL 350 MG/ML 100 ML INFUS..BTL 65 ML IV (00:48)
[2022-03-23] MEDS: 0.9 % Sodium Chloride 1,000 ML 999 ML IV ×2 (01:24→02:01)
[2022-03-23] MEDS: Piperacillin Sodium/Tazobactam 3.375 GM in 0.9 % Sodium Chloride 50 ML IV (01:24)
--- NOTE | 2022-03-23 01:36 | PC.NURSE ---
Pt has bilaterally lower extremities pain 10/10, meds were administered as order. Pt V/S are stable, pt' s lower legs are swollen edema +4 discoloration, redness and warm to touch. Pt denies hx of diabetes or CHF. Pt upper lobes sounds were diminished and normal sound lower lobes. Pt was connected to the monitor and it shows sinus tachy. PT's IV 20 R forearm. IVF are running and abx. will continue to monitor.
[2022-03-23] MEDS: ondansetron HCL 4 MG/2 ML VIAL IVPUSH (02:01)
== END 2022-03-23 02:16 | disposition home or self-care (01) ==
PROVIDERS: Physician Assistant; Emergency Provider Internal Medicine; PCP Internal Medicine
DX: H66.92 Otitis media, unspecified, left ear (principal); R51.9 Headache, unspecified; H60.92 Unspecified otitis externa, left ear; R06.02 Shortness of breath; J06.9 Acute upper respiratory infection, unspecified; R11.2 Nausea with vomiting, unspecified; M54.2 Cervicalgia; Z20.822 Contact with and (suspected) exposure to COVID-19; Z79.899 Other long term (current) drug therapy; Z98.84 Bariatric surgery status
CPT/HCPCS: 0241U; 36415; 70450; 70491; 71275; 80053; 83605; 83735; 85025; 85379; 85652; 86140; 87040; 93005; 96361; 96374; 96375; 96376; 99284; J2270; J2405; J2543; Q9967

== ENCOUNTER 2022-09-16 10:38 | Outpatient (REF) | payer MEDICARE, SELFPAY ==
[2022-09-16 12:27] LABS: Basophils Percent Auto 0.3 % (0-2); Eosinophils Absolute Auto 0.1 X10*3/uL (0.0-0.4); Eosinophils Percent Auto 1.7 % (0-4); Hematocrit 41.2 % (37.0-47.0); Hemoglobin 13.2 g/dl (12.0-16.0); Imm Gran Abs Auto 0.04 X10*3/uL (0.00-0.03); Imm Gran Pct Auto 0.5 % (0.0-0.4); Lymphocytes Absolute Auto 2.4 X10*3/uL (1.2-4.9); Lymphocytes Percent Auto 31.6 % (20-40); MANUAL DIFF FLAG NO; Mean Corpuscular Hemoglobin 27.3 pg (27.0-33.0); Mean Corpuscular Volume 85.3 fL (80.0-98.0); Mean Platelet Volume 10.4 fL (9.4-12.3); Monocytes Absolute Auto 0.5 X10*3/uL (0.1-1.2); Monocytes Percent Auto 6.4 % (2-11); Neutrophils Absolute Auto 4.6 x10*3/uL (2.0-8.3); Neutrophils Percent Auto 59.5 % (45-73); Platelet Count 252 X10*3/uL (160-400); Red Blood Count 4.83 X10*6/uL (4.20-5.50); Red Cell Distribution Width 15.1 % (11.0-16.0); White Blood Count 7.7 X10*3/uL (4.8-10.8)
[2022-09-16 13:18] LABS: Erythrocyte Sedimentation Rate 16 MM/HR (0-20)
[2022-09-16 13:54] LABS: Alanine Aminotransferase 18 U/L (0-31); Albumin Level 4.4 g/dL (3.5-5.0); Alkaline Phosphatase 68 U/L (39-117); Anion Gap 12 (12-20); Aspartate Amino Transferase 17 U/L (5-31); Bilirubin Total 0.5 mg/dL (0.0-1.0); Blood Urea Nitrogen 14 mg/dL (9-16); C Reactive Protein 0.92 mg/dL (< or = 0.50); Calcium 9.6 mg/dL (8.4-10.2); Carbon Dioxide 25 mmol/L (22-29); Chloride 106 mmol/L (96-108); Estimated Glomerular Filt Rate > 60; Glucose Random 93 mg/dL (60-115); Potassium 4.3 mmol/L (3.3-5.1); Rheumatoid Factor < 13.0 IU/mL (<15.0); Sodium 139 mmol/L (135-145); Total Protein 7.2 g/dL (6.5-8.0)
[2022-09-16 14:08] LABS: Ferritin 32 ng/mL (10-250); Folate 17.9 ng/mL (> or = 4.0); TSH reflex Free T4 3.63 uIU/mL (0.32-4.0); Vitamin B12 750 pg/mL (200-900); Vitamin D 25-OH Total 29.8 ng/mL (>30)
[2022-09-20 15:54] LABS: Zinc 70 mcg/dL (60-130)
[2022-09-21 21:39] LABS: IgA 157 mg/dL (47-310); IgG 1052 mg/dL (600-1640); IgM 68 mg/dL (50-300)
[2022-09-22 04:23] LABS: Vitamin A 55 mcg/dL (38-98)
[2022-09-22 04:28] LABS: Alpha-Tocopherol 13.9 mg/L (5.7-19.9); Beta-Gamma Tocopherol 2.9 mg/L (<=4.3)
[2022-09-22 11:33] LABS: Gliadin Deamidated IgA Ab <1.0 U/mL; Gliadin Deamidated IgG Ab <1.0 U/mL; Transglutaminase Ab IgG <1.0 U/mL; Transglutaminase IgA <1.0 U/mL
[2022-09-22 14:48] LABS: Anti Nuclear Antibody Screen POSITIVE (NEGATIVE)
[2022-09-22 17:19] LABS: Vitamin K1 273 pg/mL (130-1500)
[2022-09-23 13:33] LABS: Vitamin B1 12 nmol/L (8-30)
[2022-09-23 15:09] LABS: Vitamin B6 12.9 ng/mL (2.1-21.7)
[2022-09-23 19:08] LABS: Immunoglobulin E 210 kU/L (<OR=114)
[2022-09-24 19:23] LABS: Vitamin C 0.8 mg/dL (0.3-2.7)
[2022-09-26 19:18] LABS: Nicotinamide <20 ng/mL; Vit B3 - Nicotinic Acid <20 ng/mL
[2022-09-26 21:33] LABS: Vitamin B5 (Pantothenic Acid) 49 ng/mL (<275)
== END 2022-09-16 10:39 | disposition home or self-care (01) ==
LOC: HO.LAB 10:38
PROVIDERS: PCP Internal Medicine; Visit Provider Internal Medicine Gastroenterology
DX: K21.9 Gastro-esophageal reflux disease without esophagitis (principal); G89.29 Other chronic pain; R10.33 Periumbilical pain; R11.2 Nausea with vomiting, unspecified; M54.2 Cervicalgia; R51.9 Headache, unspecified; G47.33 Obstructive sleep apnea (adult) (pediatric); T78.40XA Allergy, unspecified, initial encounter; E07.9 Disorder of thyroid, unspecified; E46 Unspecified protein-calorie malnutrition
CPT/HCPCS: 36415; 80053; 82180; 82306; 82607; 82728; 82746; 82784; 82785; 84207; 84425; 84443; 84446; 84590; 84591; 84597; 84630; 85025; 85652; 86003; 86038; 86039; 86140; 86258; 86364; 86431; 99202

== ENCOUNTER 2022-10-21 08:45 | Outpatient (REF) | payer MEDICARE, SELFPAY ==
--- NOTE | ~2022-10-21 | CT_ITS ---
EXAMINATION: CT SOFT TISSUE NECK WITH CONTRAST CLINICAL INFORMATION: Obstructive sleep apnea COMPARISON: Neck CT 03/22/2022 TECHNIQUE: Following the administration of 60 mL of Omnipaque 350 intravenous contrast, helical imaging was performed in the axial plane with generation of coronal and sagittal reformatted images. This CT examination was performed using dose optimization techniques as appropriate, variously including the following: *Automated exposure control. *Adjustment of mA and/or kV according to patient size (this includes techniques or standardized protocols for targeted exams where dose is matched to indication/reason for exam; i.e. extremities or head). *Use of iterative reconstruction technique. DLP: History 82 mGy-cm. FINDINGS: The fat planes of the skull base and soft tissues of the nasopharynx are unremarkable. Resolved previously seen cellulitic changes in the left perimastoidal/suboccipital and neck soft tissues. Previously seen soft tissue within the left external auditory canal is no longer visualized. Stable right mastoid tip effusion. Mild mucosal thickening in the ethmoid air cells and right maxillary sinus alveolar recess. Rightward nasal septal deviation with a prominent rightward bony spur impinging upon the right inferior nasal turbinate. The temporomandibular joints are normal. The oral cavity is normal. There is crowding of the oropharyngeal soft tissue structures and near complete obliteration of the airway at its junction with the nasopharynx. Soft tissue along the base of tongue largely effaces the vallecula, probably lingual tonsillar hyperplasia. The vocal cords are apposed limiting assessment of the glottis, however the supraglottic and subglottic airway is patent. No discrete aerodigestive tract mass. The submandibular and parotid glands are normal. Diminutive thyroid gland. No pathologic size criteria or morphologically suspicious cervical chain lymph nodes. The partially visualized lung apices are clear. Normal opacification of the major neck vessels. Redemonstrated moderate to severe C5-C6 and to a lesser extent C4-C5 disc height loss with multilevel cervical spondylosis but no high-grade spinal canal narrowing. Varying degrees of moderate to high-grade neural foraminal narrowing. The imaged portions of the brain parenchyma are unremarkable. CT/CT soft tissue neck w IV con IMPRESSION: 1. Crowding of the oropharyngeal soft tissue structures and near complete obliteration of the airway at its junction with the nasopharynx. The vocal cords are apposed limiting assessment of the glottis, however the supraglottic and subglottic airway is patent. No discrete aerodigestive tract mass. 2. Resolved cellulitic changes in the left perimastoidal/suboccipital and neck soft tissues. 3. Rightward nasal septal deviation with a prominent rightward bony spur impinging upon the right inferior nasal turbinate.
== END 2022-10-21 08:46 | disposition home or self-care (01) ==
LOC: HO.CT 08:45
PROVIDERS: PCP Internal Medicine; Visit Provider Internal Medicine Gastroenterology
DX: M54.2 Cervicalgia (principal); R51.9 Headache, unspecified; K21.9 Gastro-esophageal reflux disease without esophagitis; G47.33 Obstructive sleep apnea (adult) (pediatric)
CPT/HCPCS: 70491; Q9967

== ENCOUNTER 2022-10-23 19:04 | Emergency (ER) | payer MEDICARE, SELFPAY ==
[2022-10-23 19:19] VITALS: BP 123/85; PULSE 79; RESP 17; TEMP 37.2; O2SAT 100; BMI 39.7
--- NOTE | 2022-10-23 19:22 | ED.GENADULT ---
HPI - General Adult General Chief complaint: Animal Bite Stated complaint: dog nicked pts lip Time Seen by Provider: 10/23/22 22:15 Source: patient Mode of arrival: ambulatory Limitations: no limitations History of Present Illness HPI narrative: Patient was playing with her dog who nicked her upper lip. Dog is immunized up-to-date and behaving normal Related Data Home Medications Medication Instructions Recorded Confirmed escitalopram oxalate 10 mg tablet 10 mg PO DAILY 09/16/22 (Lexapro) levothyroxine 137 mcg tablet 137 mcg PO DAILY 09/16/22 Previous Rx's Medication Instructions Recorded albuterol sulfate 90 mcg/actuation 2 inh inhalation Q4-6H PRN 03/23/22 breath activated powder inhaler shortness of breath or wheezing #1 ea amoxicillin 875 mg tablet 875 mg PO BID #14 tabs 09/16/22 esomeprazole magnesium 20 mg 20 mg PO DAILY #90 caps 09/16/22 capsule,delayed release sodium,potassium,mag sulfates 17.5 See Rx Instructions PO .COMPLEX 09/16/22 gram-3.13 gram-1.6 gram oral soln #354 mL (Suprep Bowel Prep Kit) amoxicillin 875 mg-potassium 1 tab PO BID #20 tabs 10/23/22 clavulanate 125 mg tablet Allergies Allergy/AdvReac Type Severity Reaction Status Date / Time No Known Allergies Allergy Verified 09/16/22 10:47 [No Known Allergies*] Review of Systems Review of Systems: Yes all other systems are reviewed and are negative PMFSH Past Medical History Surgical History History of esophagogastroduodenoscopy (EGD) History of removal of laparoscopic gastric banding device Hx of carpal tunnel repair Hx of colonoscopy Hx of laparoscopic gastric banding Hx of total knee replacement Social History Social History Advance Directives: No Advance Directives Information Provided: No Physical Exam ED Vital Signs: Vital Signs - 24 hr 10/23/22 19:19 10/23/22 21:49 Temperature 98.9 F 98.6 F Pulse Rate 79 73 Respiratory Rate 17 17 Blood Pressure 123/85 126/56 L Pulse Oximetry 100 98 Oxygen Delivery Method Room Air BMI result Body Mass Index 39.7 HENMT Nose image: 1. 1.5 cm long laceration left upper lip Course Course Course Narrative: RME: 57 yold female presents for left upper lip bite cuased by family dog. she states Dog is uptoate with rabies vaccine. patient will be evlauted in EM> Medications Administered Discontinued Medications Generic Name Dose Route Start Last Admin Trade Name Freq PRN Reason Stop Dose Admin Amoxicillin/Clavulanate Potassium 875 mg 10/23/22 22:15 10/23/22 23:25 Amoxicillin/Potassium Clav 875 Mg Tablet PO 10/23/22 22:16 875 mg ONCE ONE Administration Diphtheria/Tetanus/Acell Pertussis 0.5 ml 10/23/22 23:26 10/23/22 23:42 Diphth,Pertus(Acell),Tet Adult 0.5 Ml Syringe IM 10/23/22 23:27 0.5 ml .ONCE ONE Administration Lidocaine HCl 2 ml 10/23/22 22:15 10/23/22 23:25 Lidocaine Hcl 1 % Mpf 2 Ml Vial INFILTRATI 10/23/22 22:16 2 ml ONCE ONE Administration Procedures Laceration Laceration 1: Site: lip Side (If applicable): left Size (cm): 1.5 Description: irregular Depth: simple, single layer Local Anesthetic: lidocaine 1% Amount of anesthesia used (mL): 1 Skin layer closed with: nylon Size (cm): 6-0 Number of sutures: 6 Technique: simple, interrupted Discharge Plan Discharge Clinical Impression: Dog bite of face Patient Disposition: Home, Self-Care Instructions: Animal Bite (ED) Additional Instructions: Local care as advised Take antibiotics as prescribed Suture removal in 7 days Prescriptions: New amoxicillin-pot clavulanate 875-125 mg tablet 1 tab PO BID Qty: 20 0RF No Action albuterol sulfate 90 mcg/actuation aerosol powdr breath activated 2 inh inhalation Q4-6H PRN (Reason: shortness of breath or wheezing) Qty: 1 0RF levothyroxine 137 mcg tablet 137 mcg PO DAILY escitalopram oxalate [Lexapro] 10 mg tablet 10 mg PO DAILY esomeprazole magnesium 20 mg capsule,delayed release(DR/EC) 20 mg PO DAILY Qty: 90 1RF sodium,potassium,mag sulfates [Suprep Bowel Prep Kit] 17.5-3.13-1.6 gram recon soln See Rx Instructions PO .COMPLEX Qty: 354 0RF Rx Instructions: DILUTE; drink 1/2 at 6-8 pm and half at 11 PM- 1AM amoxicillin 875 mg tablet 875 mg PO BID Qty: 14 0RF Interventions: ED Discharge Assessment Last Done: 10/23/22 23:46 Discharge Date/Time: 10/23/22 23:47
[2022-10-23 21:49] VITALS: BP 126/56; PULSE 73; RESP 17; TEMP 37; O2SAT 98
== END 2022-10-23 23:47 | disposition home or self-care (01) ==
PROVIDERS: Emergency Provider Internal Medicine; PCP Internal Medicine
DX: S01.551A Open bite of lip, initial encounter (principal); S00.511A Abrasion of lip, initial encounter; W54.0XXA Bitten by dog, initial encounter; Y93.9 Activity, unspecified; Y92.9 Unspecified place or not applicable; Y99.9 Unspecified external cause status; Z79.899 Other long term (current) drug therapy
CPT/HCPCS: 12011; 90471; 90715; 99284

== ENCOUNTER 2022-12-07 09:07 | Day surgery (SDC) | payer OTHER, SELFPAY ==
[2022-12-05 12:52] VITALS: BMI 39.1
--- NOTE | 2022-12-06 11:03 | HO.ANESPROP2 ---
Documented by User: Coleen Feliz NP 12/06/22 11:03 HPI - Anesthesia Eval Consult details Narrative: 57yo F for Upper Endoscopy and Colonoscopy [facility] Active Problems Active Problems: All Active Problems (Updated 10/24/22 @ 00:28 by Diego Deluca) Allergy (Acute) EBONY (obstructive sleep apnea) (Acute) GERD (gastroesophageal reflux disease) (Acute) Neck pain (Acute) Headache (Acute) Past Medical History Medical History (Updated 12/06/22 @ 11:03 by Coleen Feliz NP) GERD (gastroesophageal reflux disease) EBONY (obstructive sleep apnea) Surgical History Surgical History History of esophagogastroduodenoscopy (EGD) History of removal of laparoscopic gastric banding device Hx of carpal tunnel repair Hx of colonoscopy Hx of laparoscopic gastric banding Hx of total knee replacement Social History Social History Advance Directives: No Advance Directives Information Provided: Yes Meds Allergies Allergy/AdvReac Type Severity Reaction Status Date / Time No Known Allergies Allergy Verified 09/16/22 10:47 [No Known Allergies*] Home Medications Medication Instructions Recorded Confirmed Last Taken Type escitalopram oxalate 10 mg tablet 10 mg PO DAILY 09/16/22 Unknown History (Lexapro) levothyroxine 137 mcg tablet 137 mcg PO DAILY 09/16/22 Unknown History Exam Exam Date and Time: December 06, 2022 1103 Height,Weight and Vital Signs: Height 5 ft 1 in Weight 93.894 kg Assessment and Plan Assessment Anesthesia Assessment: Chart Reviewed Documented by User: Yunior Anthony MD 12/07/22 09:32 [facility] Past Medical History Medical History (Updated 12/06/22 @ 11:03 by Coleen Feliz NP) GERD (gastroesophageal reflux disease) EBONY (obstructive sleep apnea) Family History Family history of problems with anesthesia: No Surgical History Surgical History History of esophagogastroduodenoscopy (EGD) History of removal of laparoscopic gastric banding device Hx of carpal tunnel repair Hx of colonoscopy Hx of laparoscopic gastric banding Hx of total knee replacement History of Problems with Anesthesia: No Social History Social History Advance Directives: No Advance Directives Information Provided: Yes Meds Allergies Allergy/AdvReac Type Severity Reaction Status Date / Time No Known Allergies Allergy Verified 09/16/22 10:47 [No Known Allergies*] Home Medications Medication Instructions Recorded Confirmed Last Taken Type escitalopram oxalate 10 mg tablet 10 mg PO DAILY 09/16/22 Unknown History (Lexapro) levothyroxine 137 mcg tablet 137 mcg PO DAILY 09/16/22 Unknown History Exam Airway Mallampati Class: II TM Dist: >3cm Neck ROM: Limited Heart: rrr Lungs: cta Assessment and Plan Assessment Anesthesia Assessment: Anesthesia Plan Discussed Final Anesthetic Review Family History of Problems with Anesthesia: No History of Problems with Anesthesia: No NPO: Yes ASA Class: III Final Preanesthetic Review: No Changes in Pt Med Stat, Meds/Allgs Chart Reviewed, Consent Obtained/Reviewed and Anes Risks/Benef Reviewed Patient Risk: Intermediate Procedure Risk: Intermediate Anesthetic Plan Anesthetic Plan: MAC: and Agree w/ Assess. and Plan Disposition: Standard PACU
[2022-12-07 09:54] VITALS: BP 143/76; PULSE 80; RESP 16; TEMP 36.7; O2SAT 95; BMI 40.6
--- NOTE | 2022-12-07 09:57 | MHC.SHP ---
Pre-Procedural Eval Section A Date of Service: 12/07/22 Section B Chief Complaint: Change in bowel habit, GERD Details of Present Illness: also has dysphagia Relevant Family History (Specify if Yes): No Relevant Social History: None Present Medications: see Short Stay Collaborative assessment Medical History: Significant History (hypothyroid, depression, asthma, ?ankylosing spondylitis ) History of Previous Operations: Relevant previous surgery/procedure and date(s) (TMS, lap band, rotator cuff surgery, knee replacements x 2, neck surgery, bladder lsing, cholecystectomy 8 yrs ago) Allergies: Allergies Allergy/AdvReac Type Severity Reaction Status Date / Time No Known Allergies Allergy Verified 09/16/22 10:47 [No Known Allergies*] Review of Systems Sugical H&P ROS: Negative: Constitution, Cardiovascular, Respiratory, Neurological, Psychiatric, Hem-Onc, Allergic/Immunologic, Gastrointestinal, Genitourinary, Musculoskeletal, Integumentary, Endocrine and Eyes/Ears/Nose/Throat Exam Surgical H&P Exam: Normal: HEENT, Normal: Heart, Normal: Lungs, Normal: Extremities, Normal: Abdomen, Normal: Skin and Normal: Neurological Plan Diagnosis/Plan: Unchanged I have reviewed the history and physical and performed a pertinent physical examination on my patient. No changes have occurred unless specified. Time Spent With Patient Time: Total time managing care of this patient today ____ minutes.
[2022-12-07] MEDS: Lactated Ringers 1,000 ML 100 ML IVCONT (10:20)
--- NOTE | 2022-12-07 10:36 | W.PM.OPN ---
Operative Note Operative Note Date of Service: 12/07/22 Narrative: Operative Information Procedure Description: EGD, Colonoscopy Indication: GERD, dysphagia, abn bowel habits Anesthesia: MAC FLEXIBLE TRANSORAL UPPER GASTROINTESTINAL ENDOSCOPY AND COLONOSCOPY PROCEDURE NOTE UPPER ENDOSCOPY Consent: Indications for the procedure and potential complications of bleeding, perforation, reaction to medications and missed diagnosis were discussed with the patient and informed consent was obtained. Instrument: Olympus GIF H 190 J mid size upper endoscope Monitoring: Vital signs and clinical assessment, continuous EKG monitoring, Pulse oximetry, Carbon Dioxide monitoring and blood pressure monitoring were done throughout the procedure. Procedure: The patient was placed in the left lateral decubitis position and pre-procedure medications were administered and a bite block was placed. The endoscope was inserted into the mouth and advanced under direct vision to the third part of duodenum. A careful inspection was made as the upper endoscope was withdrawn including a retroflexed examination of the proximal stomach; Findings and interventions are described below. Findings: Larynx:normal Esophagus: GE junction at 34 cm, diaphragm hiatus at 37 cm, erosive esophagitis noted with erythema, bogginess and erosions noted, bx taken from GEJ, distal and proximal esophagus. Balloon dilation done to 20 mm at distal and proximal esophagus, no tears seen Stomach: Streaky gastritis with bile acid refluxate noted and some scarring. Biopsies were obtained. Grade 2 flap valve on retroflexed examination of the cardia. Duodenum: Bulbar duodenitis, bx taken Intervention: Biopsies as noted above, balloon dilation COLONOSCOPY Instrument: Olympus variable stiffness pediatric scope 190L Colonoscopy Monitoring: Vital signs and clinical assessment, continuous EKG monitoring, Pulse oximetry, Carbon Dioxide monitoring and blood pressure monitoring were done throughout the procedure. Colon withdrawal time was 18 minutes. Procedure: The patient was placed in the left lateral decubitis position and pre-procedure medications were administered. After a digital rectal examination of the ano-rectum, the video colonoscope was inserted into the rectum and advanced through the colon to the cecum/TI. The colonoscope was slowly withdrawn in a retrograde panoramic fashion and the colon mucosa was carefully examined including a retroflexed view of the rectum. Findings and interventions are described below. Procedure Difficulty:easy Findings: Terminal Ileum-normal, bx taken bx taken from right and left colon Cecum:normal Ascending Colon: 12 mm flat polyp, injected with eleview and removed with hot snare, base then ablated with coag and x2 clips applied with good closure of defect Transverse Colon -normal Descending Colon:normal Sigmoid Colon: normal Rectum: Retroflexion with small internal hemorrhoids, grade I with skin tag Anorectum - normal Colon preparation: [place] Bowel Preparation Scale Right colon; 2 Transverse colon: 2 Left colon; 2 (0 = Unprepared colon segment with mucosa not seen due to solid stool that cannot be cleared. 1 = Portion of mucosa of the colon segment seen, but other areas of the colon segment not well seen due to staining, residual stool and/or opaque liquid. 2 = Minor amount of residual staining, small fragments of stool and/or opaque liquid, but mucosa of colon segment seen well. 3 = Entire mucosa of colon segment seen well with no residual staining, small fragments of stool or opaque liquid) Impression and Post Procedure Diagnosis: Endoscopy Findings: erosive esophagitis hiatal hernia bile acid reflux gastritis duodenitis Colonoscopy Findings: polyp internal hemorrhoids Plan: Await Pathology results Repeat Colonoscopy in 4-5 years due to polyp or earlier if clinically indicated High fiber diet leaflet avoid straining at stool, epsom salts and sitz bath, anusol supps or cream increase esomeprazole to 20 mg BID and add ursodiol -might add cholestyramine or welchol at future date if needed Above findings were reviewed with the patient and relevant handouts were provided if indicated.
[2022-12-07 11:48] VITALS: BP 106/73; PULSE 94; RESP 16; TEMP 36.1; O2SAT 100
[2022-12-07 12:03] VITALS: BP 124/77; PULSE 84; RESP 18; O2SAT 100
[2022-12-07 12:15] VITALS: BP 137/91; PULSE 69; RESP 18; TEMP 36.4; O2SAT 98
== END 2022-12-07 13:05 | disposition home or self-care (01) ==
PROVIDERS: PCP Internal Medicine; Visit Provider Internal Medicine Gastroenterology
PROC: (CPT 45385; principal; 2022-12-07 11:10)
DX: R19.4 Change in bowel habit (principal); D12.2 Benign neoplasm of ascending colon; K64.0 First degree hemorrhoids; K64.4 Residual hemorrhoidal skin tags; K21.9 Gastro-esophageal reflux disease without esophagitis; R13.10 Dysphagia, unspecified; K29.50 Unspecified chronic gastritis without bleeding; K22.10 Ulcer of esophagus without bleeding; K29.80 Duodenitis without bleeding; K44.9 Diaphragmatic hernia without obstruction or gangrene; G47.33 Obstructive sleep apnea (adult) (pediatric); Z79.899 Other long term (current) drug therapy; Z98.84 Bariatric surgery status
CPT/HCPCS: 45385; 45380; 45381; 43249; 43239; 88305; 88342; C1726

== ENCOUNTER → 2022-12-07 09:07 | Outpatient (BNV) | payer OTHER, SELFPAY | PROVIDERS: PCP Internal Medicine; Visit Provider Internal Medicine Gastroenterology | DX: K21.9 Gastro-esophageal reflux disease without esophagitis (principal); R13.10 Dysphagia, unspecified; R19.4 Change in bowel habit; K29.70 Gastritis, unspecified, without bleeding; D12.2 Benign neoplasm of ascending colon; K64.0 First degree hemorrhoids | CPT/HCPCS: 43249; 45381; 45385 ==

== ENCOUNTER 2022-12-08 18:27 | Emergency (ER) | payer OTHER, SELFPAY ==
--- NOTE | ~2022-12-08 | CT_ITS ---
EXAMINATION: CT HEAD WITHOUT CONTRAST CLINICAL INFORMATION: Severe headache. COMPARISON: CT head 03/22/2022 TECHNIQUE: Contiguous axial imaging was performed from the skull base to vertex without intravenous administration of contrast. Coronal and sagittal reformatted images are performed at the CT scanner. [This CT examination was performed using dose optimization techniques as appropriate, variously including the following: *Automated exposure control *Adjustment of mA and/or kV according to patient size (this includes techniques or standardized protocols for targeted exams where dose is matched to indication/reason for exam; i.e. extremities or head) *Use of iterative reconstruction technique] DLP: 624 mGy-cm. FINDINGS: There is no evidence of acute intracranial hemorrhage or territorial infarction. No abnormal mass-effect or midline shift is seen. Terjo to white matter differentiation is well preserved. No extra-axial fluid collections are identified. The ventricles are normal in size. There is no abnormal attenuation within the brain parenchyma. There is no osseous abnormality. The mastoid air cells and visualized portions of the paranasal sinuses are well-aerated. CT/CT head/brain wo IV con IMPRESSION: No acute intracranial pathology.
[2022-12-08 18:32] VITALS: BP 147/95; PULSE 111; RESP 19; TEMP 36.6; O2SAT 98; BMI 39.7
--- NOTE | 2022-12-08 18:34 | ED_ITS ---
HPI - General Adult General Chief complaint: Eye Problems Stated complaint: upper/ lower endoscopy done t-1, cant see now Time Seen by Provider: 12/08/22 20:57 Source: patient Limitations: no limitations History of Present Illness HPI narrative: 57-year-old female presents with bilateral eye pain. Symptoms started yesterday and been progressively getting worse. Patient reports having had an upper and lower endoscopy yesterday. When she got home she started to develop eye pain and irritation. The pain is severe. Worse with light. It has a sensation of foreign body in her eye. The pain does not radiate. It is not associated with nausea vomiting. She reports blurred vision. She also reports a crusty discharge. Patient also reports recently had conjunctivitis which was treated with erythromycin ointment. Patient's current pain level is a 10/10. There has been no prior treatment. Related Data Home Medications Medication Instructions Recorded Confirmed escitalopram oxalate 10 mg tablet 10 mg PO DAILY 09/16/22 (Lexapro) levothyroxine 137 mcg tablet 137 mcg PO DAILY 09/16/22 Previous Rx's Medication Instructions Recorded albuterol sulfate 90 mcg/actuation 2 inh inhalation Q4-6H PRN 03/23/22 breath activated powder inhaler shortness of breath or wheezing #1 ea esomeprazole magnesium 20 mg 20 mg PO DAILY #90 caps 09/16/22 capsule,delayed release sodium,potassium,mag sulfates 17.5 See Rx Instructions PO .COMPLEX 09/16/22 gram-3.13 gram-1.6 gram oral soln #354 mL (Suprep Bowel Prep Kit) esomeprazole magnesium 20 mg 20 mg PO BID #120 caps 12/07/22 capsule,delayed release ursodiol 500 mg tablet 500 mg PO BID #90 tabs 12/07/22 erythromycin 5 mg/gram (0.5 %) eye 0.5 inch ophthalmic (eye) BID #3.5 12/08/22 ointment grams Allergies Allergy/AdvReac Type Severity Reaction Status Date / Time No Known Allergies Allergy Verified 12/08/22 18:32 [No Known Allergies*] Review of Systems Review of Systems: CONSTITUTIONAL: Denies weight loss, fever and chills. HEENT: See HPI. RESPIRATORY: Denies SOB and cough. CV: Denies palpitations no CP. GI: Denies abdominal pain, nausea, vomiting and diarrhea. : Denies dysuria and urinary frequency. MSK: Denies myalgia and joint pain. SKIN: Denies rash and pruritus. NEUROLOGICAL: Denies headache and syncope. PSYCHIATRIC: Denies recent changes in mood. Denies anxiety and depression. All other ROS are negative unless in HPI PMFSH Past Medical History Medical History GERD (gastroesophageal reflux disease) EBONY (obstructive sleep apnea) Surgical History History of esophagogastroduodenoscopy (EGD) History of removal of laparoscopic gastric banding device Hx of carpal tunnel repair Hx of colonoscopy Hx of laparoscopic gastric banding Hx of total knee replacement Social History Social History Alcohol intake: never Smoked in Last 30 Days: No Use of substances other than those prescribed or required for medical reasons: No Substance Use Type: Marijuana Advance Directives: No Advance Directives Information Provided: Yes Patient : No Physical Exam ED Vital Signs: Vital Signs - 24 hr 12/08/22 18:32 12/08/22 19:37 12/08/22 21:40 Temperature 98 F 98.9 F 98.7 F Pulse Rate 111 H 96 97 Respiratory Rate 19 17 19 Blood Pressure 147/95 H 128/79 128/73 Pulse Oximetry 98 96 97 Oxygen Delivery Method Room Air Room Air Room Air BMI result Body Mass Index 39.7 GEN: Well developed, no acute distress, alert, oriented HEENT: Normocephalic, atraumatic, normal external ears, nose appears normal Eyes: Bilateral conjunctival injection. No discharge. Pressure on the right eye as 11, left eye is 18. Neck: Supple, no lymphadenopathy Respiratory: Talks in complete sentences, no respiratory distress Extremities: No clubbing cyanosis or edema Neurologic: No focal neurologic deficits, cranial nerves 2-12 intact, gait normal Skin: No rash Course Course Course Narrative: RME- 57 year old female presents for evaluation of severe headache and bilateral eye pain. She had an endoscopy and colonoscopy yesterday. She has bilateral purulent drainage from the eyes. Complains of photosensitivity. Plan for labs, CT scan of the brain. She is able to open her eyes but complains of pain when doing so Reevaluation(s) Reevaluation #1: The workup is complete. Her head her headache has improved however her visual complaints and I pain have not significantly improved. At this point it does not appear to be glaucoma, mass effect. This does not appear to be in overt acute ocular emergency. She can follow up with an clam dredger or an housing quality standard inspector within 24 hours. I will discharge the patient on erythromycin as she has recently completed. She can return for any worsening or concerning symptoms. Time: 22:28 Medical Decision Making Medical Decision Making [facility] Narrative: 57-year-old female presents with bilateral eye pain. There is no evidence of acute closed angle glaucoma. I am not entirely clear what the etiology of her symptoms is. There does not appear to be a bacterial conjunctivitis at this time. At this point I might assume that there is a migraine headache or tension headache that is causing bilateral eye pain especially given the photophobia. There is no neck pain or stiffness to suggest meningitis. Will re-evaluate the patient after treating her for migraine. My colleague who evaluated the patient previously ordered multiple lab tests and imaging studies. Will review these results to determine if there is any contributing features causing her symptoms. Differential Diagnosis Differential Diagnoses: The differential diagnosis associated with the presentation includes (See above) Admission/Observation Consideration of admission/observation: Escalation of care including admission/observation considered Lab Data [facility] Lab Attestation statement: I reviewed the patient's lab results. 12/08/22 19:27 12/08/22 19:27 Labs: Lab Results 12/08/22 12/08/22 12/08/22 Range/Units 19:27 19:27 19:27 WBC 8.6 (4.8-10.8) X10*3/uL RBC 5.05 (4.20-5.50) X10*6/uL Hgb 14.3 (12.0-16.0) g/dl Hct 44.3 (37.0-47.0) % MCV 87.7 (80.0-98.0) fL MCH 28.3 (27.0-33.0) pg MCHC 32.3 (31.0-35.0) g/dl RDW 14.7 (11.0-16.0) % Plt Count 226 (160-400) X10*3/uL MPV 10.8 (9.4-12.3) fL Immature Gran % (Auto) 0.2 (0.0-0.4) % Neut % (Auto) 66.3 (45-73) % Lymph % (Auto) 23.6 (20-40) % [place] % (Auto) 7.6 (2-11) % Eos % (Auto) 2.0 (0-4) % Baso % (Auto) 0.3 (0-2) % Lymph # (Auto) 2.0 (1.2-4.9) X10*3/uL [place] # (Auto) 0.7 (0.1-1.2) X10*3/uL Eos # (Auto) 0.2 (0.0-0.4) X10*3/uL Baso # (Auto) 0.0 (0.0-0.2) X10*3/uL Abs Immat Gran (auto) 0.02 (0.00-0.03) X10*3/uL Absolute Neuts (auto) 5.7 (2.0-8.3) x10*3/uL Absolute Nucleated RBC 0.000 (0.0-0.012) X10*3/uL Nucleated RBC % (auto) 0.0 (0.0-0.2) /100WBC PT 11.8 (11.1-13.3) SEC INR 1.0 (0.9-1.1) APTT 27.0 (26.0-36.4) SEC Sodium 139 (135-145) mmol/L Potassium 4.0 (3.3-5.1) mmol/L Chloride 106 (96-108) mmol/L Carbon Dioxide 24 (22-29) mmol/L Anion Gap 13 (12-20) BUN 10 (9-16) mg/dL Creatinine 0.90 (0.5-1.4) mg/dL Estim Creat Clear Calc 74.4 Estimated GFR > 60 Random Glucose 92 (60-115) mg/dL Calcium 10.2 D (8.4-10.2) mg/dL Total Bilirubin 0.6 (0.0-1.0) mg/dL AST 20 (5-31) U/L ALT 19 (0-31) U/L Alkaline Phosphatase 59 (39-117) U/L Total Protein 8.1 H (6.5-8.0) g/dL Albumin 4.7 (3.5-5.0) g/dL Lipase 15 (8-78) U/L Urine Color Urine Appearance Urine pH (5.0-9.0) Ur Specific [place] (1.005-1.025) Urine Protein (Neg-Trace) mg/dL Urine Glucose (UA) (Negative) mg/dL Urine Ketones (Negative) mg/dL Urine Blood (Negative) Urine Nitrite (Negative) Ur Leukocyte Esterase (Negative) Urine RBC (0-2) /HPF Urine WBC (0-5) /HPF Ur Squamous Epith Cells (0-2) /HPF Urine Bacteria (None Seen) Hyaline Casts (0-2) /LPF 12/08/22 Range/Units 21:30 WBC (4.8-10.8) X10*3/uL RBC (4.20-5.50) X10*6/uL Hgb (12.0-16.0) g/dl Hct (37.0-47.0) % MCV (80.0-98.0) fL MCH (27.0-33.0) pg MCHC (31.0-35.0) g/dl RDW (11.0-16.0) % Plt Count (160-400) X10*3/uL MPV (9.4-12.3) fL Immature Gran % (Auto) (0.0-0.4) % Neut % (Auto) (45-73) % Lymph % (Auto) (20-40) % [place] % (Auto) (2-11) % Eos % (Auto) (0-4) % Baso % (Auto) (0-2) % Lymph # (Auto) (1.2-4.9) X10*3/uL [place] # (Auto) (0.1-1.2) X10*3/uL Eos # (Auto) (0.0-0.4) X10*3/uL Baso # (Auto) (0.0-0.2) X10*3/uL Abs Immat Gran (auto) (0.00-0.03) X10*3/uL Absolute Neuts (auto) (2.0-8.3) x10*3/uL Absolute Nucleated RBC (0.0-0.012) X10*3/uL Nucleated RBC % (auto) (0.0-0.2) /100WBC PT (11.1-13.3) SEC INR (0.9-1.1) APTT (26.0-36.4) SEC Sodium (135-145) mmol/L Potassium (3.3-5.1) mmol/L Chloride (96-108) mmol/L Carbon Dioxide (22-29) mmol/L Anion Gap (12-20) BUN (9-16) mg/dL Creatinine (0.5-1.4) mg/dL Estim Creat Clear Calc Estimated GFR Random Glucose (60-115) mg/dL Calcium (8.4-10.2) mg/dL Total Bilirubin (0.0-1.0) mg/dL AST (5-31) U/L ALT (0-31) U/L Alkaline Phosphatase (39-117) U/L Total Protein (6.5-8.0) g/dL Albumin (3.5-5.0) g/dL Lipase (8-78) U/L Urine Color Yellow Urine Appearance Clear Urine pH 6.0 (5.0-9.0) Ur Specific [place] 1.010 (1.005-1.025) Urine Protein Negative (Neg-Trace) mg/dL Urine Glucose (UA) Negative (Negative) mg/dL Urine Ketones 15 (Negative) mg/dL Urine Blood Negative (Negative) Urine Nitrite Negative (Negative) Ur Leukocyte Esterase Trace H (Negative) Urine RBC 0-2 (0-2) /HPF Urine WBC 0-5 (0-5) /HPF Ur Squamous Epith Cells 3-5 (0-2) /HPF Urine Bacteria None Seen (None Seen) Hyaline Casts 0-2 (0-2) /LPF Independent Interpretation I performed an independent interpretation of an: CT Scan (Head: No acute in tracranial process) Radiology Impression Discussion of test interpretation with radiology: I have reviewed the radiologist's reading. Radiologist Impression: CT/CT head/brain wo IV con IMPRESSION: No acute intracranial pathology. ? ? Dictated By: Lenny Multani MD Signed By: <Electronically signed by Lenny Multani MD in [place]> 12/08/221934 Prescription Management I considered prescription management with: Pain Medication and Antibiotic Discharge Plan Discharge Clinical Impression: Headache, Conjunctivitis, Ocular pain, bilateral Patient Disposition: Home, Self-Care Instructions: Acute Headache (ED), Eye Pain (ED), Conjunctivitis (ED), Photophobia (ED) Prescriptions: New erythromycin 5 mg/gram (0.5 %) ointment 0.5 inch ophthalmic (eye) BID Qty: 3.5 0RF No Action albuterol sulfate 90 mcg/actuation aerosol powdr breath activated 2 inh inhalation Q4-6H PRN (Reason: shortness of breath or wheezing) Qty: 1 0RF esomeprazole magnesium 20 mg capsule,delayed release(DR/EC) 20 mg PO BID Qty: 120 2RF ursodiol 500 mg tablet 500 mg PO BID Qty: 90 1RF levothyroxine 137 mcg tablet 137 mcg PO DAILY escitalopram oxalate [Lexapro] 10 mg tablet 10 mg PO DAILY esomeprazole magnesium 20 mg capsule,delayed release(DR/EC) 20 mg PO DAILY Qty: 90 1RF sodium,potassium,mag sulfates [Suprep Bowel Prep Kit] 17.5-3.13-1.6 gram recon soln See Rx Instructions PO .COMPLEX Qty: 354 0RF Rx Instructions: DILUTE; drink 1/2 at 6-8 pm and half at 11 PM- 1AM Referrals: Kvng Giles [Physician] - 1 day
[2022-12-08 19:31] LABS: MANUAL DIFF FLAG NO
[2022-12-08 19:36] LABS: Basophils Percent Auto 0.3 % (0-2); Eosinophils Absolute Auto 0.2 X10*3/uL (0.0-0.4); Hematocrit 44.3 % (37.0-47.0); Hemoglobin 14.3 g/dl (12.0-16.0); Imm Gran Abs Auto 0.02 X10*3/uL (0.00-0.03); Imm Gran Pct Auto 0.2 % (0.0-0.4); Lymphocytes Percent Auto 23.6 % (20-40); Mean Corpuscular HGB Conc 32.3 g/dl (31.0-35.0); Mean Corpuscular Hemoglobin 28.3 pg (27.0-33.0); Mean Corpuscular Volume 87.7 fL (80.0-98.0); Mean Platelet Volume 10.8 fL (9.4-12.3); Monocytes Absolute Auto 0.7 X10*3/uL (0.1-1.2); Monocytes Percent Auto 7.6 % (2-11); Neutrophils Absolute Auto 5.7 x10*3/uL (2.0-8.3); Neutrophils Percent Auto 66.3 % (45-73); Platelet Count 226 X10*3/uL (160-400); Red Blood Count 5.05 X10*6/uL (4.20-5.50); Red Cell Distribution Width 14.7 % (11.0-16.0); White Blood Count 8.6 X10*3/uL (4.8-10.8)
[2022-12-08 19:37] VITALS: BP 128/79; PULSE 96; RESP 17; TEMP 37.2; O2SAT 96
[2022-12-08 19:44] LABS: Prothrombin Time 11.8 SEC (11.1-13.3)
[2022-12-08 19:45] LABS: Alanine Aminotransferase 19 U/L (0-31); Albumin Level 4.7 g/dL (3.5-5.0); Alkaline Phosphatase 59 U/L (39-117); Anion Gap 13 (12-20); Aspartate Amino Transferase 20 U/L (5-31); Bilirubin Total 0.6 mg/dL (0.0-1.0); Blood Urea Nitrogen 10 mg/dL (9-16); Calcium 10.2 mg/dL (8.4-10.2); Carbon Dioxide 24 mmol/L (22-29); Chloride 106 mmol/L (96-108); Creatinine Clr Calc Pharmacy 74.4; Estimated Glomerular Filt Rate > 60; Glucose Random 92 mg/dL (60-115); Lipase 15 U/L (8-78); Sodium 139 mmol/L (135-145); Total Protein 8.1 g/dL (6.5-8.0)
[2022-12-08 21:40] VITALS: BP 128/73; PULSE 97; RESP 19; TEMP 37.1; O2SAT 97
[2022-12-08 21:50] LABS: Appearance Urine Clear; Color Urine Yellow; Glucose Urine UA Negative (Negative); Leukocyte Esterase Urine Trace (Negative); Nitrite Urine Negative (Negative); UMIC TRIGGER UACC YES; Urine Blood Negative (Negative); Urine Ketones 15 mg/dL (Negative); Urine Protein Negative (Neg-Trace)
[2022-12-08 21:55] LABS: Bacteria Urine None Seen (None Seen); Hyaline Casts Urine 0-2 /LPF (0-2); RBC Urine 0-2 /HPF (0-2); WBC Urine 0-5 /HPF (0-5)
[2022-12-08] MEDS: Metoclopramide HCl 10 MG/2 ML VIAL IVPUSH (22:15)
[2022-12-08] MEDS: Acetaminophen 325 MG TABLET 975 MG PO (22:15)
[2022-12-08] MEDS: Ketorolac Tromethamine 15 MG/ML VIAL IVPUSH (22:15)
--- NOTE | 2022-12-08 22:16 | PC.NURSE ---
20g Iv placed in R Ac, notified DANILO Hicks
== END 2022-12-08 22:58 | disposition home or self-care (01) ==
PROVIDERS: Physician Assistant; Emergency Provider Emergency Medicine; PCP Internal Medicine
DX: R51.9 Headache, unspecified (principal); H10.9 Unspecified conjunctivitis; H57.13 Ocular pain, bilateral; E66.9 Obesity, unspecified; Z68.39 Body mass index [BMI] 39.0-39.9, adult; F12.90 Cannabis use, unspecified, uncomplicated
CPT/HCPCS: 36415; 70450; 80053; 81001; 83690; 85025; 85610; 85730; 96374; 96375; 99284; J1885; J2765

== ENCOUNTER 2022-12-23 11:31 | Outpatient (AMB) | payer MEDICARE, SELFPAY ==
--- NOTE | 2022-12-23 11:31 | MHC.OFFVIS ---
Intake Vital Signs 12/23/22 11:34 Height 5 ft 1 in Weight 211 lb 10.3 oz BMI 40.0 BP 115/64 Blood Pressure Location Lt brachial Position Sitting Pulse 73 Intake Visit Reasons: s/p egd/colo Intake Note: Janelle presents in the office as a follow up double. CC: Dental Hygiene Instructor Required: No Allergies Seasonal Allergies Allergy (Mild, Verified 12/23/22 11:34) Unknown HPI s/p egd/colo HPI Details 57 yr old f w/ hypothyroid, depression, asthma, ?ankylosing spondylitis here for f/u RECAP: She had nausea, vomiting, clear colored more like mucous one month she had bad reflux, has to avoid triggers like coffee, she did have a lap band for 12 yrs and was removed due to worsening GERD She had headaches worse in the morning she had noted more loose stools than normal, sometimes urgency, she does have formed stools in between hard to tolerate dairy EGD 2019--Esophagitis , lap band constriction noted Rept: EGD/colo 11/2022 Endoscopy Findings: erosive esophagitis hiatal hernia bile acid reflux gastritis duodenitis Colonoscopy Findings: polyp internal hemorrhoids Path: Active esophagitis, and SSA removed INTERIM: She never got the ursodiol she got the esomperazole and it has been helping nausea and vomiting has improved bowel habits are still bad with diarrhea she is pending sleep study for EBONY eval she has multiple allergies on RAST testing CT soft tissue-- deviated nasal septum, crowding of orophrynx EXAM: GENERAL: The patient is well developed and nontoxic. VITAL SIGNS:see workflow HEENT: Nonicteric sclerae, PERRLA, both TM inflammed, immobile. Oropharynx clear. Moist mucous membranes. Conjunctivae appear well perfused. No thyroid mass. CHEST: Chest wall is nontender. HEART: Regular rate and rhythm without murmurs. LUNGS: Clear to auscultation bilaterally. ABDOMEN: Soft, positive bowel sounds, nontender, no organomegaly.no flank tenderness SKIN: No rash, no excessive bruising, petechiae, or purpura. NEUROLOGIC: Cranial nerves II-XII intact without motor/sensory deficit. A/P: 1/ [place] REFLUx, better with PPI 2/ abn bowel habit, with diarrhea, ?BAM 3/ ?EBONY --morning headaches and poor focus --pending sleep study 4/ mutliple food allergies Plan: 1/ rept colo 5 yrs or so 2/ cont nexium 3/ referral allergy and bariatrics 4/ reviewed food aallergies and RAST with her, high levels to hazelnuts, etc --avoid PFSH Medical History EBONY (obstructive sleep apnea) GERD (gastroesophageal reflux disease) Surgical History History of removal of laparoscopic gastric banding device Hx of carpal tunnel repair Hx of laparoscopic gastric banding Hx of total knee replacement Hx of colonoscopy History of esophagogastroduodenoscopy (EGD) Social History Alcohol intake: never Substance Use Type: Marijuana Physical Exam Vital Signs: Last Vital Signs Pulse 73 12/23/22 11:34 BP 115/64 12/23/22 11:34 BMI result Body Mass Index 40.0 Assessment & Plan Assessment & Plan (1) Obesity: Code(s): E66.9 - Obesity, unspecified (2) Allergy: Code(s): T78.40XA - Allergy, unspecified, initial encounter Qualifiers: Encounter type: subsequent encounter Qualified Code(s): T78.40XD - Allergy, unspecified, subsequent encounter Orders: Referrals Bariatric Surgery Referral E66.9 - Obesity, unspecified Allergy & Immunology Referral E66.9 - Obesity, unspecified, T78.40XA - Allergy, unspecified, initial encounter Medications: New colesevelam (WelChol) 1,250 mg (2 x 625 mg) PO BID 120 tabs 1RF Coding Level of Care Code Est Pt Level 4 (97674) Diagnoses Obesity E66.9 Allergy, subsequent encounter T78.40XD Encounter type: subsequent encounter
[2022-12-23 11:34] VITALS: BP 115/64; PULSE 73; BMI 40.0
== END 2022-12-23 12:14 | disposition home or self-care (01) ==
PROVIDERS: PCP Internal Medicine; Visit Provider Internal Medicine Gastroenterology
DX: E66.9 Obesity, unspecified (principal); T78.40XD Allergy, unspecified, subsequent encounter
CPT/HCPCS: 99214

== ENCOUNTER → 2022-12-23 11:31 | Outpatient (BNVA) | payer MEDICARE, SELFPAY | PROVIDERS: PCP Internal Medicine; Visit Provider Internal Medicine Gastroenterology | DX: E66.9 Obesity, unspecified (principal); Z68.41 Body mass index [BMI] 40.0-44.9, adult; T78.40XD Allergy, unspecified, subsequent encounter | CPT/HCPCS: 99212 ==

== ENCOUNTER → 2023-01-19 14:30 | Outpatient (BNVA) | payer MEDICARE, SELFPAY | PROVIDERS: PCP Internal Medicine; Visit Provider Physician Assistant Surgical ==

== ENCOUNTER → 2023-01-19 14:30 | Outpatient (BNVA) | payer MEDICARE, SELFPAY | PROVIDERS: PCP Internal Medicine; Visit Provider Physician Assistant Surgical ==

== ENCOUNTER 2023-01-25 07:48 | Outpatient (AMB) | payer MEDICARE, SELFPAY ==
--- NOTE | 2023-01-25 12:43 | MHC.OFFVISWM ---
Intake VS Expanded 01/25/23 13:03 Height 5 ft 1 in Weight 213 lb BMI 40.2 Body Fat % 40.3 Body Fat Mass 85.8 Fat Free Mass 127.2 Visceral Fat Rating 12 Body Water % 42.1 Body Water Mass 89.6 Basal Metabolic Rate/Score 1,729 Intake Visit Reasons: [employer]CE [employer] SWL BMI 40.2 Allergies Seasonal Allergies Allergy (Mild, Verified 01/25/23 12:43) Unknown Medication List - Last Reconciled 01/25/23 by Ezio Hassan MD albuterol sulfate 90 mcg/actuation 2 inhalations inhalation Q4-6H PRN colesevelam 1,250 mg (2 x 625 mg) PO BID erythromycin 0.5 inches ophthalmic (eye) BID escitalopram oxalate (Lexapro) 10 mg PO DAILY esomeprazole magnesium 20 mg PO BID levothyroxine 125 mcg PO DAILY montelukast 10 mg PO DAILY HPI TV [employer]INTE[employer]CE [employer] SWL BMI 40.2 HPI Details Start time: 12.29pm, End time: 1.29pm ?I spent 55 minutes speaking with the patient on the phone plus an additional 5 minutes reviewing and updating records for a total of 60 minutes HPI Comments History of Present Illness Details Previous weight loss: Keto diet, Weight Watchers, intermittent fasting Wakes up: 7am, Sleeps: 10pm Breakfast: skips Lunch: 12pm (salad or seafood, ham & cheese, burger) Dinner: 6pm (pasta, rice, burger,) Snacks: 2-3 times after dinner (chips, ice cream) Exercise: has a gym membership x3 wk doing weights Fluids: Coffee 40oz (cream and sugar), hot tea: 2 cups/day (plain), soda: none, juice: none, ETOH: none PFSH Medical History (Updated 01/25/23 @ 13:02 by Ezio Hassan MD) Diaphragmatic hernia Hyperlipidemia Asthma DJD (degenerative joint disease) Anxiety Depression Hypothyroidism Morbid obesity GERD (gastroesophageal reflux disease) EBONY (obstructive sleep apnea) Surgical History (Updated 01/25/23 @ 12:55 by Ezio Hassan MD) H/O neck surgery H/O rotator cuff surgery Hx laparoscopic cholecystectomy History of removal of laparoscopic gastric banding device Hx of carpal tunnel repair Hx of laparoscopic gastric banding Hx of total knee replacement Hx of colonoscopy History of esophagogastroduodenoscopy (EGD) Family History (Updated 01/25/23 @ 13:02 by Ezio Hassan MD) Other GERD (gastroesophageal reflux disease) Social History Alcohol intake: never Substance Use Type: Marijuana Assessment & Plan Assessment & Plan (1) Morbid obesity: Code(s): E66.01 - Morbid (severe) obesity due to excess calories Plan: 1.? Plan for lap sleeve gastrectomy. If diaphragmatic or ventral hernias are present at time of surgery, these will be repaired laparoscopically as well. Risks and complications were discussed in detail including possible conversion to an open procedure, anastomotic leak, bleeding requiring transfusion, small bowel obstruction, , DVT and pulmonary embolism, cardiac, or pulmonary complications, as jail complications such as anastomotic ulcer, insufficient weight loss and vitamin deficiencies. I emphasized the importance of close follow-up, adherence to instructions and good communication. 2. Nutritional counseling. Start with 2 CELEBRATE REBUILD protein (buy at [facility] [employer] [facility]) shakes (HALF scoop EACH in 8oz low fat unsweetened almond milk each) at 8am-10am and 11am-1pm, 1 protein bar (CELEBRATE protein bars, buy at [facility] [employer] [facility]) at 2pm-4pm, dinner at 5pm (8 forks of protein and 8 forks of salad/vegetables) AND another Celebrate protein bar after dinner at 7pm-9pm. So you do 2 protein shakes, 2.5 protein bars and one meal per day. Meal to include lean meat (beef, fish, pork, turkey, chicken), or new zealander yogurt, or egg whites, or beans with a salad with olive oil and fruits (berries, pears, apples, kiwi). Avoid salt, breads, potatoes, rice, pasta, desserts. 3. Each shake would be drunk slowly, like coffee in a period of 2 hours. May add your coffee into your shakes if flavors match. 4. Cut each bar in 4 pieces and eat each piece in 30min ?to make each bar last 2 hours. 5. I emphasized the importance of measuring accurately the food portion and measure it when serving the food in plate 6. The meal portions include 8 full-size forks of meat and 8 full-size forks of salad. You always eat the meat portion but you can replace up to 4 forks for salad/vegetables with rice, potatoes or pasta, or a fruit ?if you like. The less you do it the better weight loss will be. 7. One full-size fork is what it can be scooped on the fork without falling aside and not what can be bit with the fork. Use regular forks like those you find in a typical restaurant. 8.? Please send me weight measurements as soon as possible and then once a week. Always include your diet and exercise plan. 9. Alternatively start stationary bike at a resistance level of 2.0 Increase level by 1.0 every 3 min to a max level of 8.0. Stay at this level for 3 min and then return to level 2.0 and repeat same steps until 150 calories are burned. Velocity target is 10mph and heart rate is 135 bpm. Goal is to burn 2000 calories per week on exercise, which means either 300 calories daily, or 400 calories 5 days per week, or 500 calories 4 days per week, or 650 calories 3 days per week. 10. Burn another 150 calories at the rowing machine 11. Alternatively purchase a stationary bike, or a rowing machine at home that can track calories. Let me know if you do so I can give you an exercise plan. 12.?Goal is to lose at least 1.5-2lbs per week 13. Goal to lose 10% of your weight before surgery, which is about 21lbs. Ultimate weight goal: 192lbs before surgery 14. Please follow the diet plan exactly without any change. If you don't like something about the plan or you feel hungry you need to communicate with me so I can help you revise the plan. You should not change the plan yourself. 15. Start the Sucralfate 2 teaspoons every 6 hours to help with the inflammation of the esophagus. (2) Hypothyroidism: Code(s): E03.9 - Hypothyroidism, unspecified (3) GERD (gastroesophageal reflux disease): Code(s): K21.9 - Gastro-esophageal reflux disease without esophagitis (4) Hyperlipidemia: Code(s): E78.5 - Hyperlipidemia, unspecified (5) Asthma: Code(s): J45.909 - Unspecified asthma, uncomplicated (6) Diaphragmatic hernia: Code(s): K44.9 - Diaphragmatic hernia without obstruction or gangrene (7) Esophagitis: Code(s): K20.90 - Esophagitis, unspecified without bleeding Orders: Orders Lipid Panel Today E03.9 - Hypothyroidism, unspecified, E66.01 - Morbid (severe) obesity due to excess calories, E78.5 - Hyperlipidemia, unspecified, J45.909 - Unspecified asthma, uncomplicated, K21.9 - Gastro-esophageal reflux disease without esophagitis, K44.9 - Diaphragmatic hernia without obstruction or gangrene Vitamin B12 and Folate Today E03.9 - Hypothyroidism, unspecified, E66.01 - Morbid (severe) obesity due to excess calories, E78.5 - Hyperlipidemia, unspecified, J45.909 - Unspecified asthma, uncomplicated, K21.9 - Gastro-esophageal reflux disease without esophagitis, K44.9 - Diaphragmatic hernia without obstruction or gangrene Comprehensive Met. Panel Today E03.9 - Hypothyroidism, unspecified, E66.01 - Morbid (severe) obesity due to excess calories, E78.5 - Hyperlipidemia, unspecified, J45.909 - Unspecified asthma, uncomplicated, K21.9 - Gastro-esophageal reflux disease without esophagitis, K44.9 - Diaphragmatic hernia without obstruction or gangrene Vitamin B1 Today E03.9 - Hypothyroidism, unspecified, E66.01 - Morbid (severe) obesity due to excess calories, E78.5 - Hyperlipidemia, unspecified, J45.909 - Unspecified asthma, uncomplicated, K21.9 - Gastro-esophageal reflux disease without esophagitis, K44.9 - Diaphragmatic hernia without obstruction or gangrene C Reactive Protein Today E03.9 - Hypothyroidism, unspecified, E66.01 - Morbid (severe) obesity due to excess calories, E78.5 - Hyperlipidemia, unspecified, J45.909 - Unspecified asthma, uncomplicated, K21.9 - Gastro-esophageal reflux disease without esophagitis, K44.9 - Diaphragmatic hernia without obstruction or gangrene TSH reflex Free T4 Today E03.9 - Hypothyroidism, unspecified, E66.01 - Morbid (severe) obesity due to excess calories, E78.5 - Hyperlipidemia, unspecified, J45.909 - Unspecified asthma, uncomplicated, K21.9 - Gastro-esophageal reflux disease without esophagitis, K44.9 - Diaphragmatic hernia without obstruction or gangrene Vitamin D 25-OH Total Today E03.9 - Hypothyroidism, unspecified, E66.01 - Morbid (severe) obesity due to excess calories, E78.5 - Hyperlipidemia, unspecified, J45.909 - Unspecified asthma, uncomplicated, K21.9 - Gastro-esophageal reflux disease without esophagitis, K44.9 - Diaphragmatic hernia without obstruction or gangrene XR chest 2V Today E03.9 - Hypothyroidism, unspecified, E66.01 - Morbid (severe) obesity due to excess calories, E78.5 - Hyperlipidemia, unspecified, J45.909 - Unspecified asthma, uncomplicated, K21.9 - Gastro-esophageal reflux disease without esophagitis, K44.9 - Diaphragmatic hernia without obstruction or gangrene FL upper GI w air Today E03.9 - Hypothyroidism, unspecified, E66.01 - Morbid (severe) obesity due to excess calories, E78.5 - Hyperlipidemia, unspecified, J45.909 - Unspecified asthma, uncomplicated, K21.9 - Gastro-esophageal reflux disease without esophagitis, K44.9 - Diaphragmatic hernia without obstruction or gangrene Insulin Today E03.9 - Hypothyroidism, unspecified, E66.01 - Morbid (severe) obesity due to excess calories, E78.5 - Hyperlipidemia, unspecified, J45.909 - Unspecified asthma, uncomplicated, K21.9 - Gastro-esophageal reflux disease without esophagitis, K44.9 - Diaphragmatic hernia without obstruction or gangrene IRON PROFILE Today E03.9 - Hypothyroidism, unspecified, E66.01 - Morbid (severe) obesity due to excess calories, E78.5 - Hyperlipidemia, unspecified, J45.909 - Unspecified asthma, uncomplicated, K21.9 - Gastro-esophageal reflux disease without esophagitis, K44.9 - Diaphragmatic hernia without obstruction or gangrene Complete Blood Count Auto Diff Today E03.9 - Hypothyroidism, unspecified, E66.01 - Morbid (severe) obesity due to excess calories, E78.5 - Hyperlipidemia, unspecified, J45.909 - Unspecified asthma, uncomplicated, K21.9 - Gastro-esophageal reflux disease without esophagitis, K44.9 - Diaphragmatic hernia without obstruction or gangrene Zinc Today E03.9 - Hypothyroidism, unspecified, E66.01 - Morbid (severe) obesity due to excess calories, E78.5 - Hyperlipidemia, unspecified, J45.909 - Unspecified asthma, uncomplicated, K21.9 - Gastro-esophageal reflux disease without esophagitis, K44.9 - Diaphragmatic hernia without obstruction or gangrene Vitamin A Today E03.9 - Hypothyroidism, unspecified, E66.01 - Morbid (severe) obesity due to excess calories, E78.5 - Hyperlipidemia, unspecified, J45.909 - Unspecified asthma, uncomplicated, K21.9 - Gastro-esophageal reflux disease without esophagitis, K44.9 - Diaphragmatic hernia without obstruction or gangrene Ferritin Today E03.9 - Hypothyroidism, unspecified, E66.01 - Morbid (severe) obesity due to excess calories, E78.5 - Hyperlipidemia, unspecified, J45.909 - Unspecified asthma, uncomplicated, K21.9 - Gastro-esophageal reflux disease without esophagitis, K44.9 - Diaphragmatic hernia without obstruction or gangrene PTHI Today E03.9 - Hypothyroidism, unspecified, E66.01 - Morbid (severe) obesity due to excess calories, E78.5 - Hyperlipidemia, unspecified, J45.909 - Unspecified asthma, uncomplicated, K21.9 - Gastro-esophageal reflux disease without esophagitis, K44.9 - Diaphragmatic hernia without obstruction or gangrene Hemoglobin A1c Today E03.9 - Hypothyroidism, unspecified, E66.01 - Morbid (severe) obesity due to excess calories, E78.5 - Hyperlipidemia, unspecified, J45.909 - Unspecified asthma, uncomplicated, K21.9 - Gastro-esophageal reflux disease without esophagitis, K44.9 - Diaphragmatic hernia without obstruction or gangrene US abdomen comp w elastography Today E03.9 - Hypothyroidism, unspecified, E66.01 - Morbid (severe) obesity due to excess calories, E78.5 - Hyperlipidemia, unspecified, J45.909 - Unspecified asthma, uncomplicated, K21.9 - Gastro-esophageal reflux disease without esophagitis, K44.9 - Diaphragmatic hernia without obstruction or gangrene ECG 12 lead EKG Today E03.9 - Hypothyroidism, unspecified, E66.01 - Morbid (severe) obesity due to excess calories, E78.5 - Hyperlipidemia, unspecified, J45.909 - Unspecified asthma, uncomplicated, K21.9 - Gastro-esophageal reflux disease without esophagitis, K44.9 - Diaphragmatic hernia without obstruction or gangrene Referrals Nutrition/Dietitian Referral E03.9 - Hypothyroidism, unspecified, E66.01 - Morbid (severe) obesity due to excess calories, E78.5 - Hyperlipidemia, unspecified, J45.909 - Unspecified asthma, uncomplicated, K21.9 - Gastro-esophageal reflux disease without esophagitis, K44.9 - Diaphragmatic hernia without obstruction or gangrene Behavioral Health Referral E03.9 - Hypothyroidism, unspecified, E66.01 - Morbid (severe) obesity due to excess calories, E78.5 - Hyperlipidemia, unspecified, J45.909 - Unspecified asthma, uncomplicated, K21.9 - Gastro-esophageal reflux disease without esophagitis, K44.9 - Diaphragmatic hernia without obstruction or gangrene Medications: New sucralfate 10 mL PO Q6H 400 mL 2RF K20.90 - Esophagitis, unspecified without bleeding, K21.9 - Gastro-esophageal reflux disease without esophagitis, K44.9 - Diaphragmatic hernia without obstruction or gangrene Telehealth Telehealth Location of provider rendering services: practice address Location of patient: address on file Patient Identification confirmed using: Name, : Yes Telehealth method: voice only Patient verbally consented to treatment: Yes Patient verbally consented to billing insurance company: Yes Patient informed of any privacy concerns related to visit: Yes Minutes spent on Phone/Video with Pt.: 60 Coding Level of Care Code Tele [facility] Pt Level 5 (10540) Diagnoses Morbid obesity E66.01 Hypothyroidism E03.9 GERD (gastroesophageal reflux disease) K21.9 Hyperlipidemia E78.5 Asthma J45.909 Diaphragmatic hernia K44.9 Esophagitis K20.90 Time Spent (min) 60
[2023-01-25 13:03] VITALS: BMI 40.2
== END 2023-01-25 13:30 | disposition home or self-care (01) ==
LOC: HO.HBS 07:48
PROVIDERS: PCP Internal Medicine; Visit Provider Surgery
DX: E66.01 Morbid (severe) obesity due to excess calories (principal); Z68.41 Body mass index [BMI] 40.0-44.9, adult
CPT/HCPCS: 99443

== ENCOUNTER → 2023-01-25 07:48 | Outpatient (BNVA) | payer MEDICARE, SELFPAY | PROVIDERS: PCP Internal Medicine; Visit Provider Surgery ==

== ENCOUNTER 2023-02-02 10:55 | Outpatient (AMB) | payer MEDICARE, SELFPAY ==
--- NOTE | 2023-02-02 10:30 | A.OFFWM_ITS ---
Intake Intake Visit Reasons: VIDEO BH Intake Allergies Seasonal Allergies Allergy (Mild, Verified 01/25/23 12:43) Unknown [facility] Medical History (Updated 02/02/23 @ 10:58 by Yashira Julien) Diaphragmatic hernia Hyperlipidemia Asthma DJD (degenerative joint disease) Anxiety Depression Hypothyroidism Morbid obesity GERD (gastroesophageal reflux disease) EBONY (obstructive sleep apnea) Surgical History (Updated 01/25/23 @ 12:55 by Ezio Hassan MD) H/O neck surgery H/O rotator cuff surgery Hx laparoscopic cholecystectomy History of removal of laparoscopic gastric banding device Hx of carpal tunnel repair Hx of laparoscopic gastric banding Hx of total knee replacement Hx of colonoscopy History of esophagogastroduodenoscopy (EGD) Family History (Updated 01/25/23 @ 13:02 by Ezio Hassan MD) Other GERD (gastroesophageal reflux disease) Social History Alcohol intake: never Substance Use Type: Marijuana Behavioral Health Assessment Weight Management Therapy Therapy Notes Details Pt stated that she was in therapy for many years and then she moved jobs. She reported that her son in 2004 and had another son who was having trouble. Pt is taking medication perscribed by her PCP. Patient was seeing Dr Cullen in [place] receiving TMS ( 2 rounds for severe depression) in the past and then he . Pt was last hospitalized maybe 6 years ago at [facility] and also previously [facility] due to depression. No history of problems with drugs or alcohol. Presenting Concerns Referral Source provider Reason for referral weight loss surgery evaluation Precipitating Event obesity Living Situation Current Living Situation Relative's/Guardian's Joseph At risk of losing current housing? No Satisfied with current living situation? Yes Comments Pt lives with her and her son. She is from from 10 years but they live together. Food/Weight/Diet Expectations of change weight loss and maintenance History/Relationship with food Pt stated that sweets are hard for her to avoid History/Relationship with weight She reported battling her weight most of her life. History/Relationship with dieting Pt had the lap band 15 years ago and had it taken over a year ago. She lost about 85lbs and gained about 40lbs back. Pt had tried numerous diets. Social History Family history and relationship Pt is but from her and has three children and three grandchildren. 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 none reported Education Preferred learning style Auditory, Verbal, Written, Learn by doing and Visual Currently enrolled in educational program? No Interested in further educational program? 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 No Meaningful activities patient goes to the gym every other day Financial Situation Financial assistance? None Service Service? No Mental Health and Addiction Treatment Current/Past substance abuse? No Current/Past addictive behavior concerns? No Medical and Physical Health Summary Physical exam in the last year? Yes Pain Screening Current pain? Yes Pain in the last few months? Yes Comments pain from arthritis and stomach issues Medications Is the patient compliant with medications? Yes Does the patient have Schulte Guardian in place? Not applicable Does the patient use complimentary health approaches? No Trauma/Abuse History History of trauma? Yes Other Past (patient lost her son in 2004 when he was 19, she sat on her couch for one year. ) Assessment & Plan Assessment & Plan (1) Major depressive disorder, recurrent, mild: Code(s): F33.0 - Major depressive disorder, recurrent, mild (2) Morbid obesity: Code(s): E66.01 - Morbid (severe) obesity due to excess calories Plan Patient was not able to connect through video and did phone instead. Also no paperwork available yet either. She will be seen again in office. Janelle is a 57 year old female with hx of severe depression following the loss of her son. She had the lap band in for many years which she stated may have contributed to her GI issues. Telehealth Telehealth Location of provider rendering services: other Location of patient: other Patient Identification confirmed using: Name, : Yes Telehealth method: voice only Patient verbally consented to treatment: Yes Patient verbally consented to billing insurance company: Yes Patient informed of any privacy concerns related to visit: Yes Coding Level of Care Code Tele Psy Diag Eval (35401) Diagnoses Major depressive disorder, recurrent, mild F33.0 Morbid obesity E66.01 Time Spent (min) 45
== END 2023-02-02 10:57 | disposition home or self-care (01) ==
LOC: HO.HBST 10:55
PROVIDERS: PCP Internal Medicine; Visit Provider Counselor Mental Health
DX: F33.0 Major depressive disorder, recurrent, mild (principal); E66.01 Morbid (severe) obesity due to excess calories
CPT/HCPCS: 90791

== ENCOUNTER → 2023-02-02 10:55 | Outpatient (BNVA) | payer MEDICARE, SELFPAY | PROVIDERS: PCP Internal Medicine; Visit Provider Counselor Mental Health ==

== ENCOUNTER 2023-02-10 08:01 | Outpatient (AMB) | payer MEDICARE, SELFPAY ==
--- NOTE | 2023-02-10 08:04 | MHC.OFFVIS ---
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 Pt reports loud snoring, frequent arousals and non refreshing sleep. She gained 40 lb over the 18 months after lap band removed. She feels constantly tired and dragging. Sleep questionnaire: Have you ever been diagnosed with a sleep disorder? No. Have you ever had a sleep study in the past? No. Have you ever been treated for a sleep disorder? No. Do you take medications for a sleep disorder? No. Do you snore? Yes. Do you wake up gasping at night? No. Do you have episodes of apneas? No. If yes, are they witnessed? No. Do you have episodes of nocturnal chest pain or dyspnea? No. Do you have difficulty initiating sleep? Yes, somtimes. Do you have difficulty maintaining sleep? Yes. Do you wake up tired? Yes, always. Do you have headaches upon awakening? Yes. Do you wake up with dry mouth or throat? Yes. Do you have GERD? Yes. Do you have nocturia? Yes. Do you have nocturnal leg cramps? No. Do you have symptoms of restless legs? No. Do you act out your dreams? No. Sleep hygiene questionnaire: What is your usual sleep routine? Usual bedtime is at 10 pm; Usual wake up time is at 7 am. Do you take naps? No. Is your sleep environment cool, dark, and quiet? Yes. Do you exercise? Stationary bike daily. Do you take caffeine or other stimulants? Yes. in the morning. Do you use electronics in bed? Yes, sometimes. 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 Hypersomnolence questionnaire: Do you have daytime tiredness or fatigue? Yes. Do you easily fall asleep when inactive? No. Have you ever had episodes of sudden weakness? No. Have you ever had episodes of sudden weakness associated with strong emotions? No. PFSH Medical History (Updated 02/10/23 @ 09:37 by Mike Galan CNP) Diaphragmatic hernia Hyperlipidemia Asthma DJD (degenerative joint disease) Anxiety Depression Hypothyroidism Morbid obesity GERD (gastroesophageal reflux disease) EBONY (obstructive sleep apnea) Surgical History (Updated 01/25/23 @ 12:55 by Ezio Hassan MD) H/O neck surgery H/O rotator cuff surgery Hx laparoscopic cholecystectomy History of removal of laparoscopic gastric banding device Hx of carpal tunnel repair Hx of laparoscopic gastric banding Hx of total knee replacement Hx of colonoscopy History of esophagogastroduodenoscopy (EGD) Family History (Updated 01/25/23 @ 13:02 by Ezio Hassan MD) Other GERD (gastroesophageal reflux disease) Social History (Updated 02/10/23 @ 08:08 by Libia Ye CMA) Alcohol intake: never Patient Tobacco Use Status: Never used Tobacco Substance Use Type: Marijuana Review of Systems Const All systems reviewed & are unremarkable except as noted in HPI and below ENT Reports Normal hearing present Neuro Reports Normal hearing present Physical Exam Vital Signs: Last Vital Signs Pulse 79 02/10/23 08:08 BP 130/80 02/10/23 08:08 Pulse Ox 97 02/10/23 08:08 Oxygen Delivery Method Room Air 02/10/23 08:08 BMI result Body Mass Index 40.0 Const General: cooperative and tired appearing Nutritional Appearance: obese Orientation/consciousness: patient oriented x3 Neck Neck: Yes full ROM and Yes supple Resp Effort & Inspection: normal respiratory effort and able to speak in complete sentences Neuro General: patient oriented x3, gait normal and moves all extremities Cranial nerves: Yes Bilaterally intact EOM present, Yes Normal facial strength present, Yes Midline tongue present, Yes Symmetric palate elevation present, Yes Normal hearing present, Yes Ability to bilaterally rotate head present and Yes Ability to bilaterally elevate shoulders present Cognition (Neuro): normal cognition Gait exam (Neuro): Normal gait present Motor exam (neuro): 5/5 motor strength present throughout, Pronator motor function not present and no tremor noted Psych Appearance: grossly normal Mental Status: mental status grossly normal Speech and movement: Normal speech and movement present Affect: normal affect Attitude: cooperative Assessment & Plan Assessment & Plan (1) Daytime sleepiness: Code(s): R40.0 - Somnolence (2) Loud snoring: Code(s): R06.83 - Snoring (3) Neck pain: Code(s): M54.2 - Cervicalgia (4) Migraine: Code(s): G43.909 - Migraine, unspecified, not intractable, without status migrainosus Plan Pt is advised to undergo home sleep study to assess for sleep apnea. Will f/u with pt after study to discuss results and appropriate treatment options. Advised patient to try magnesium 400 mg qHS and vitamin B2 400 mg q daily for migraine prevention. Pt to call with any worsening concerns or questions. Orders: Orders RT home sleep study Today E66.01 - Morbid (severe) obesity due to excess calories, R06.83 - Snoring, R40.0 - Somnolence Medications: New magnesium oxide 400 mg PO BEDTIME 30 days 30 tabs 3RF riboflavin (vitamin B2) 400 mg PO DAILY 30 days 30 tabs 3RF Coding Level of Care Code New Pt Level 4 (40750) Diagnoses Daytime sleepiness R40.0 Loud snoring R06.83 Neck pain M54.2 Migraine G43.909
[2023-02-10 08:08] VITALS: BP 130/80; PULSE 79; O2SAT 97; BMI 40.0
== END 2023-02-10 08:39 | disposition home or self-care (01) ==
PROVIDERS: PCP Internal Medicine; Visit Provider Nurse Practitioner Family
DX: R40.0 Somnolence (principal); R06.83 Snoring; M54.2 Cervicalgia; G43.909 Migraine, unspecified, not intractable, without status migrainosus
CPT/HCPCS: 99204

== ENCOUNTER → 2023-02-10 08:01 | Outpatient (BNVA) | payer MEDICARE, SELFPAY | PROVIDERS: PCP Internal Medicine; Visit Provider Nurse Practitioner Family ==

== ENCOUNTER 2023-02-13 08:24 | Outpatient (REF) | payer MEDICARE, SELFPAY ==
--- NOTE | ~2023-02-13 | XR_ITS ---
EXAMINATION: XR CHEST CLINICAL INFORMATION: Morbid obesity COMPARISON: 03/22/2022 TECHNIQUE: 2 views of the chest were obtained. FINDINGS: No significant abnormality is noted involving the heart, lungs, mediastinum, bony thorax or soft tissues. XR/XR chest 2V IMPRESSION: Unremarkable examination.
--- NOTE | 2023-02-13 08:29 | ECG_ITS ---
Test Reason : MORBID OBESITY Blood Pressure : / mmHG Vent. Rate : 074 BPM Atrial Rate : 074 BPM P-R Int : 186 ms QRS Dur : 082 ms QT Int : 370 ms P-R-T Axes : 045 -05 024 degrees QTc Int : 410 ms Normal sinus rhythm with sinus arrhythmia Normal ECG When compared with ECG of 23-MAR-2022 00:46, No significant change was found Referred By: Ezio Hassan Electronically Signed By:ALBINO HEIN MD
[2023-02-13 09:03] LABS: MANUAL DIFF FLAG NO
[2023-02-13 09:25] LABS: Basophils Percent Auto 0.9 % (0-2); Eosinophils Absolute Auto 0.3 X10*3/uL (0.0-0.4); Eosinophils Percent Auto 5.5 % (0-4); Hematocrit 42.4 % (37.0-47.0); Hemoglobin 13.4 g/dl (12.0-16.0); Imm Gran Abs Auto 0.01 X10*3/uL (0.00-0.03); Imm Gran Pct Auto 0.2 % (0.0-0.4); Lymphocytes Absolute Auto 1.7 X10*3/uL (1.2-4.9); Mean Corpuscular HGB Conc 31.6 g/dl (31.0-35.0); Mean Corpuscular Volume 88.7 fL (80.0-98.0); Mean Platelet Volume 11.1 fL (9.4-12.3); Monocytes Absolute Auto 0.4 X10*3/uL (0.1-1.2); Monocytes Percent Auto 7.9 % (2-11); Neutrophils Absolute Auto 2.3 x10*3/uL (2.0-8.3); Neutrophils Percent Auto 49.5 % (45-73); Platelet Count 221 X10*3/uL (160-400); Red Blood Count 4.78 X10*6/uL (4.20-5.50); Red Cell Distribution Width 14.9 % (11.0-16.0); White Blood Count 4.7 X10*3/uL (4.8-10.8)
[2023-02-13 09:40] LABS: Estimated Average Glucose 111 mg/dL; Hemoglobin A1c % 5.5 % (<6.0)
[2023-02-13 10:08] LABS: Alanine Aminotransferase 34 U/L (0-31); Albumin Level 4.6 g/dL (3.5-5.0); Alkaline Phosphatase 65 U/L (39-117); Anion Gap 13 (12-20); Aspartate Amino Transferase 27 U/L (5-31); Bilirubin Total 0.4 mg/dL (0.0-1.0); Blood Urea Nitrogen 16 mg/dL (9-16); C Reactive Protein 0.31 mg/dL (< or = 0.50); Calcium 10.2 mg/dL (8.4-10.2); Carbon Dioxide 26 mmol/L (22-29); Chloride 109 mmol/L (96-108); Cholesterol 246 mg/dL (<200); Estimated Glomerular Filt Rate > 60; Glucose Random 107 mg/dL (60-115); HDL Cholesterol 50 mg/dL (>40); Iron 74 mcg/dL (30-160); LDL Cholesterol Calculated 160 mg/dL (<100); Percent Iron Saturation 21 % (15-50); Potassium 4.2 mmol/L (3.3-5.1); Sodium 144 mmol/L (135-145); Total Iron Binding Capacity 352 mcg/dL (228-428); Total Protein 7.9 g/dL (6.5-8.0); Triglycerides 183 mg/dL (<150); Unsaturated Iron Binding 278 ug/dL
[2023-02-13 10:17] LABS: Ferritin 36 ng/mL (10-250); Insulin 10 uU/mL (2-29); TSH reflex Free T4 14.17 uIU/mL (0.32-4.0); Vitamin D 25-OH Total 29.6 ng/mL (>30)
[2023-02-13 10:35] LABS: Folate 14.9 ng/mL (> or = 4.0); Vitamin B12 682 pg/mL (200-900)
[2023-02-13 10:47] LABS: Free T4 (Free Thyroxine) 0.65 ng/dL (0.71-1.85)
[2023-02-14 18:08] LABS: Calcium (PTHI) 9.9 mg/dL (8.6-10.4); PTHI 31 pg/mL (16-77)
[2023-02-15 17:15] LABS: H Pylori Breath Test Negative (Negative)
[2023-02-16 12:29] LABS: Zinc 80 mcg/dL (60-130)
[2023-02-17 05:08] LABS: Vitamin A 54 mcg/dL (38-98)
[2023-02-17 15:48] LABS: Vitamin B1 12 nmol/L (8-30)
== END 2023-02-13 08:25 | disposition home or self-care (01) ==
LOC: HO.XRAY 08:24
PROVIDERS: Physician Assistant Surgical; Visit Provider Surgery
DX: E66.01 Morbid (severe) obesity due to excess calories (principal); E03.9 Hypothyroidism, unspecified; K21.9 Gastro-esophageal reflux disease without esophagitis; E78.5 Hyperlipidemia, unspecified; J45.909 Unspecified asthma, uncomplicated; K44.9 Diaphragmatic hernia without obstruction or gangrene; Z11.0 Encounter for screening for intestinal infectious diseases
CPT/HCPCS: 36415; 71046; 80053; 80061; 82306; 82607; 82728; 82746; 83013; 83036; 83525; 83540; 83970; 84425; 84439; 84443; 84590; 84630; 85025; 86140; 93005; 99211

== ENCOUNTER 2023-02-20 12:50 | Outpatient (AMB) | payer MEDICARE, SELFPAY ==
--- NOTE | 2023-03-13 09:49 | A.OFFWM_ITS ---
Intake Intake Visit Reasons: VIDEO BH F/U Allergies Seasonal Allergies Allergy (Mild, Verified 01/25/23 12:43) Unknown Banan Allergy (Severe, Uncoded 02/10/23 08:05) Rash [facility] Medical History (Updated 02/10/23 @ 09:37 by Mike Galan CNP) Diaphragmatic hernia Hyperlipidemia Asthma DJD (degenerative joint disease) Anxiety Depression Hypothyroidism Morbid obesity GERD (gastroesophageal reflux disease) EBONY (obstructive sleep apnea) Surgical History (Updated 01/25/23 @ 12:55 by Ezio Hassan MD) H/O neck surgery H/O rotator cuff surgery Hx laparoscopic cholecystectomy History of removal of laparoscopic gastric banding device Hx of carpal tunnel repair Hx of laparoscopic gastric banding Hx of total knee replacement Hx of colonoscopy History of esophagogastroduodenoscopy (EGD) Family History (Updated 01/25/23 @ 13:02 by Ezio Hassan MD) Other GERD (gastroesophageal reflux disease) Social History (Updated 02/10/23 @ 08:08 by Libia Ye [facility]) Alcohol intake: never Patient Tobacco Use Status: Never used Tobacco Substance Use Type: Marijuana Behavioral Health Assessment Weight Management Therapy Therapy Notes Details Pt reported that she is trying to do what she needs in the program. Often struggles due to emotional health and unable to be consistent. Pt stated that she was in therapy for many years and then she moved jobs. She reported that her son in 2004 and had another son who was having trouble. Pt is taking medication perscribed by her PCP. Patient was seeing Dr Cullen in [place] receiving TMS ( 2 rounds for severe depression) in the past and then he . Pt was last hospitalized maybe 6 years ago at [place] and also previously [facility] due to depression. No history of problems with drugs or alcohol. Presenting Concerns Referral Source provider Reason for referral weight loss surgery evaluation Precipitating Event obesity Living Situation Current Living Situation Relative's/Guardian's Joseph At risk of losing current housing? No Satisfied with current living situation? Yes Comments Pt lives with her and her son. She is from from 10 years but they live together. Food/Weight/Diet Expectations of change weight loss and maintenance History/Relationship with food Pt stated that sweets are hard for her to avoid History/Relationship with weight She reported battling her weight most of her life. History/Relationship with dieting Pt had the lap band 15 years ago and had it taken over a year ago. She lost about 85lbs and gained about 40lbs back. Pt had tried numerous diets. Social History Family history and relationship Pt is but from her and has three children and three grandchildren. 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 none reported Education Preferred learning style Auditory, Verbal, Written, Learn by doing and Visual Currently enrolled in educational program? No Interested in further educational program? 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 No Meaningful activities patient goes to the gym every other day Financial Situation Financial assistance? None Service Service? No Mental Health and Addiction Treatment Current/Past substance abuse? No Current/Past addictive behavior concerns? No Medical and Physical Health Summary Physical exam in the last year? Yes Pain Screening Current pain? Yes Pain in the last few months? Yes Comments pain from arthritis and stomach issues Medications Is the patient compliant with medications? Yes Does the patient have Schulte Guardian in place? Not applicable Does the patient use complimentary health approaches? No Trauma/Abuse History History of trauma? Yes Other Past (patient lost her son in 2004 when he was 19, she sat on her couch for one year. ) Assessment & Plan Assessment & Plan (1) Major depressive disorder, recurrent, mild: Code(s): F33.0 - Major depressive disorder, recurrent, mild (2) Morbid obesity: Code(s): E66.01 - Morbid (severe) obesity due to excess calories Plan Janelle is a 57 year old female with hx of severe depression following the loss of her son. She had the lap band in for many years which she stated may have contributed to her GI issues. She struggling with consistency in the program and self defeating thoughts. Patient does not want to give up and will call the office tomorrow to get weighed and help with her scale. She will be seen again. Coding Level of Care Code Psytx 45 mins (89041) Diagnoses Major depressive disorder, recurrent, mild F33.0 Morbid obesity E66.01 Time Spent (min) 40
== END 2023-03-13 09:48 | disposition home or self-care (01) ==
LOC: HO.HBST 12:50
PROVIDERS: PCP Internal Medicine; Visit Provider Counselor Mental Health
DX: F33.0 Major depressive disorder, recurrent, mild (principal); E66.01 Morbid (severe) obesity due to excess calories
CPT/HCPCS: 90834

== ENCOUNTER → 2023-02-20 12:50 | Outpatient (BNVA) | payer MEDICARE, SELFPAY | PROVIDERS: PCP Internal Medicine; Visit Provider Counselor Mental Health ==

== ENCOUNTER → 2023-03-01 08:47 | Outpatient (BNVA) | payer MEDICARE, SELFPAY | PROVIDERS: PCP Internal Medicine; Visit Provider Dietitian, Registered | DX: E66.9 Obesity, unspecified (principal) | CPT/HCPCS: 97802 ==

== ENCOUNTER 2023-03-13 09:30 | Outpatient (AMB) | payer MEDICARE, SELFPAY ==
--- NOTE | 2023-03-13 10:48 | A.OFFWM_ITS ---
Intake Intake Visit Reasons: VIDEO BH F/U Allergies Seasonal Allergies Allergy (Mild, Verified 01/25/23 12:43) Unknown Banan Allergy (Severe, Uncoded 02/10/23 08:05) Rash PFSH Medical History (Updated 02/10/23 @ 09:37 by Mike Galan CNP) Diaphragmatic hernia Hyperlipidemia Asthma DJD (degenerative joint disease) Anxiety Depression Hypothyroidism Morbid obesity GERD (gastroesophageal reflux disease) EBONY (obstructive sleep apnea) Surgical History (Updated 01/25/23 @ 12:55 by Ezio Hassan MD) H/O neck surgery H/O rotator cuff surgery Hx laparoscopic cholecystectomy History of removal of laparoscopic gastric banding device Hx of carpal tunnel repair Hx of laparoscopic gastric banding Hx of total knee replacement Hx of colonoscopy History of esophagogastroduodenoscopy (EGD) Family History (Updated 01/25/23 @ 13:02 by Ezio Hassan MD) Other GERD (gastroesophageal reflux disease) (Updated 02/10/23 @ 08:08 by Libia Ye [facility]) Alcohol intake: never Patient Tobacco Use Status: Never used Tobacco Substance Use Type: Marijuana Behavioral Health Assessment Weight Management Therapy Therapy Notes Details She reported today that she is struggling. 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 Also has not been able top set up her scale. Motivational interviewing, strengths exploration, challenge questions. Pt stated that she was in therapy for many years and then she moved jobs. She reported that her son in 2004 and had another son who was having trouble. Pt is taking medication perscribed by her PCP. Patient was seeing Dr Cullen in [place] receiving TMS ( 2 rounds for severe depression) in the past and then he . Pt was last hospitalized maybe 6 years ago at [place] and also previously [facility] due to depression. No history of problems with drugs or alcohol. Presenting Concerns Referral Source provider Reason for referral weight loss surgery evaluation Precipitating Event obesity Living Situation Current Living Situation Relative's/Guardian's Joseph At risk of losing current housing? No Satisfied with current living situation? Yes Comments Pt lives with her and her son. She is from from 10 years but they live together. Food/Weight/Diet Expectations of change weight loss and maintenance History/Relationship with food Pt stated that sweets are hard for her to avoid History/Relationship with weight She reported battling her weight most of her life. History/Relationship with dieting Pt had the lap band 15 years ago and had it taken over a year ago. She lost about 85lbs and gained about 40lbs back. Pt had tried numerous diets. Social History Family history and relationship Pt is but from her and has three children and three grandchildren. 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 none reported Education Preferred learning style Auditory, Verbal, Written, Learn by doing and Visual Currently enrolled in educational program? No Interested in further educational program? 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 No Meaningful activities patient goes to the gym every other day Financial Situation Financial assistance? None Service Service? No Mental Health and Addiction Treatment Current/Past substance abuse? No Current/Past addictive behavior concerns? No Medical and Physical Health Summary Physical exam in the last year? Yes Pain Screening Current pain? Yes Pain in the last few months? Yes Comments pain from arthritis and stomach issues Medications Is the patient compliant with medications? Yes Does the patient have Schulte Guardian in place? Not applicable Does the patient use complimentary health approaches? No Trauma/Abuse History History of trauma? Yes Other Past (patient lost her son in 2004 when he was 19, she sat on her couch for one year. ) Assessment & Plan Assessment & Plan (1) Major depressive disorder, recurrent, mild: Code(s): F33.0 - Major depressive disorder, recurrent, mild (2) Morbid obesity: Code(s): E66.01 - Morbid (severe) obesity due to excess calories Plan Janelle is a 57 year old female with hx of severe depression following the loss of her son. She had the lap band in for many years which she stated may have contributed to her GI issues. She struggling with consistency in the program and self defeating thoughts. Patient does not want to give up and will call the office tomorrow to get weighed and help with her scale. She will be seen again. Telehealth Telehealth Location of provider rendering services: practice address Location of patient: address on file Patient Identification confirmed using: Name, : Yes Telehealth method: video Patient verbally consented to treatment: Yes Patient verbally consented to billing insurance company: Yes Patient informed of any privacy concerns related to visit: Yes Minutes spent on Phone/Video with Pt.: 40 Coding Level of Care Code Tele Psytx 45 mins ([id number]) Diagnoses Major depressive disorder, recurrent, mild F33.0 Morbid obesity E66.01 Time Spent (min) 40
== END 2023-03-13 10:42 | disposition home or self-care (01) ==
LOC: HO.HBST 10:05
PROVIDERS: PCP Internal Medicine; Visit Provider Counselor Mental Health
DX: F33.0 Major depressive disorder, recurrent, mild (principal); E66.01 Morbid (severe) obesity due to excess calories
CPT/HCPCS: 90834

== ENCOUNTER → 2023-03-13 09:30 | Outpatient (BNVA) | payer MEDICARE, SELFPAY | PROVIDERS: PCP Internal Medicine; Visit Provider Counselor Mental Health ==

== ENCOUNTER 2023-04-04 10:50 | Outpatient (REF) | payer MEDICARE, SELFPAY | END 2023-04-04 10:51 | disposition home or self-care (01) | LOC: HO.10HDL 10:50 | PROVIDERS: Visit Provider Otolaryngology | DX: Z91.09 Other allergy status, other than to drugs and biological substances (principal) | CPT/HCPCS: 36415; 82785; 86003 ==

== ENCOUNTER 2023-06-06 09:12 | Emergency (ER) | payer OTHER, SELFPAY ==
[2023-06-06 09:21] VITALS: BP 138/78; PULSE 89; RESP 18; TEMP 36.6; O2SAT 98; BMI 40.4
--- NOTE | 2023-06-06 10:02 | ED.ALLEREA ---
HPI - Allergic Reaction General Chief complaint: Allergic Reaction Stated complaint: L Side Facial Eye Swelling ? Allergic Rx Time Seen by Provider: 06/06/23 10:01 Source: patient Mode of arrival: ambulatory Limitations: no limitations History of Present Illness HPI narrative: 57-year-old female history of obesity, migraines, anxiety, depression, GERD presenting to the emergency department for evaluation of itchy rash throughout entire body and left eye swelling status post eating a salad yesterday at around 14:00. Patient reports that she ate a package salad with lettuce, avocado and chicken, immediately after eating the salad she noted left eye swelling, nausea, vomiting, abdominal pain and a rash throughout her entire body. She took Benadryl symptoms improved and now she only has the left eye swelling and the itchy rash. Patient reports she has had allergy testing results are pending. Unclear exactly what she is allergic to. Patient does have an EpiPen however does not have a prescription for 1 right now. At this time she denies fevers, chills, chest pain, shortness of breath, nausea, vomiting, abdominal pain, headache, vision changes, dizziness and weakness. Patient did not need to use an EpiPen prior to arrival. Related Data Home Medications Medication Instructions Recorded Confirmed escitalopram oxalate 10 mg tablet 10 mg PO DAILY 09/16/22 01/25/23 (Lexapro) levothyroxine 125 mcg tablet 125 mcg PO DAILY 12/23/22 01/25/23 montelukast 10 mg tablet 10 mg PO DAILY 12/23/22 01/25/23 Previous Rx's Medication Instructions Recorded albuterol sulfate 90 mcg/actuation 2 inh inhalation Q4-6H PRN 03/23/22 breath activated powder inhaler shortness of breath or wheezing #1 ea esomeprazole magnesium 20 mg 20 mg PO BID #120 caps 12/07/22 capsule,delayed release erythromycin 5 mg/gram (0.5 %) eye 0.5 inch ophthalmic (eye) BID #3.5 12/08/22 ointment grams colesevelam 625 mg tablet 1,250 mg (2 x 625 mg) PO BID #360 12/26/22 tabs sucralfate 100 mg/mL oral 10 ml PO Q6H #400 mL 01/25/23 suspension magnesium oxide 400 mg PO BEDTIME 30 days #30 tabs 02/10/23 riboflavin (vitamin B2) 400 mg 400 mg PO DAILY 30 days #30 tabs 02/10/23 tablet levothyroxine 150 mcg capsule 150 mcg PO DAILY #30 caps 03/04/23 diphenhydramine HCl 25 mg capsule 25 mg PO TID PRN allergic reaction 06/06/23 (Benadryl) #20 caps epinephrine 0.3 mg/0.3 mL 0.3 mg (0.3 mL) IM Q4H PRN 06/06/23 injection, auto-injector (EpiPen anaphylaxis #2 ea 2-Jose A) prednisone 20 mg tablet 40 mg (2 x 20 mg) PO DAILY 5 days 06/06/23 #10 tabs Allergies Allergy/AdvReac Type Severity Reaction Status Date / Time Seasonal Allergies Allergy Mild Unknown Verified 01/25/23 12:43 banana Allergy Hives Verified 06/06/23 09:20 grass pollen Allergy Hives Verified 06/06/23 09:19 tree and shrub pollen Allergy Hives Verified 06/06/23 09:20 walnut Allergy Hives Verified 06/06/23 09:20 Review of Systems Review of Systems: Yes all other systems are reviewed and are negative [facility] Past Medical History Attestation statement: The following information was validated with the patient. Source: old records reviewed and nursing notes reviewed Medical History (Updated 06/06/23 @ 10:04 by NILSA Garay) Diaphragmatic hernia Hyperlipidemia Asthma DJD (degenerative joint disease) Anxiety Depression Hypothyroidism Morbid obesity GERD (gastroesophageal reflux disease) EBONY (obstructive sleep apnea) Surgical History (Updated 01/25/23 @ 12:55 by Ezio Hassan MD) H/O neck surgery H/O rotator cuff surgery Hx laparoscopic cholecystectomy History of removal of laparoscopic gastric banding device Hx of carpal tunnel repair Hx of laparoscopic gastric banding Hx of total knee replacement Hx of colonoscopy History of esophagogastroduodenoscopy (EGD) Family History Family History (Updated 01/25/23 @ 13:02 by Ezio Hassan MD) Other GERD (gastroesophageal reflux disease) Social History Social History (Updated 02/10/23 @ 08:08 by Libia Ye CMA) Alcohol intake: never Patient Tobacco Use Status: Never used Tobacco Substance Use Type: Marijuana Advance Directives: No Physical Exam ED Vital Signs: Vital Signs - 24 hr 06/06/23 09:21 06/06/23 12:16 Temperature 98 F 98.1 F Pulse Rate 89 82 Respiratory Rate 18 18 Blood Pressure 138/78 127/68 Pulse Oximetry 98 98 Oxygen Delivery Method Room Air Room Air BMI result Body Mass Index 40.4 vss Appearance: Alert.? Oriented X3.? No acute distress.? Head: Normocephalic, atraumatic, no step-offs or deformities Eyes: Pupils equal, round and reactive to light.? w/ swelling to L upper eyelid Throat: No edema, ecchymosis. Uvula midline. No swelling noted to tongue, lips, hard or soft palate, cheeks, uvula. Speaking in full sentences controlling secretions well. CVS: Normal heart rate and rhythm.? Pulses normal.? Respiratory: No respiratory distress.? Breath sounds normal.? Abdomen: Soft and nontender.? Skin: Skin warm and dry.? Normal skin color.? Normal skin turgor.?urticaria w/ superimposed excoriations throughout trunk, upper and lower extremities Extremities: No lower extremity edema.? No calf ttp. 5/5 strength to bilateral upper and lower extremities Neuro: Oriented X 3.? No motor deficit.? No sensory deficit. CN 2-12 intact Course Reevaluation(s) Reevaluation #1: Patient feeling much better no more urticaria. No shortness of breath. Left eye swelling improving. Patient to be discharged home with medication and allergy and immunology follow-up. Patient knows how to properly use an EpiPen and knows to come back to the emergency department if she has to self administer. Educated patient on diagnosis and treatment plan, answered all question, patient verbalizes understanding. At this time patient will be discharged home, advised to return with new or worsening symptoms. Educated on worrisome signs and symptoms and when to return. At this time I feel comfortable discharge home. Time: 12:46 Medications Administered Discontinued Medications Generic Name Dose Route Start Last Admin Trade Name Elliottq PRN Reason Stop Dose Admin Dexamethasone Sodium Phosphate 10 mg 06/06/23 10:02 06/06/23 10:20 Dexamethasone Sod Phosphate 10 Mg/Ml Vial IVPUSH 06/06/23 10:03 10 mg ONCE ONE Administration Diphenhydramine HCl 50 mg 06/06/23 10:09 06/06/23 10:20 Diphenhydramine Hcl 50 Mg/Ml Vial IVPUSH 06/06/23 10:10 50 mg ONCE ONE Administration Famotidine 20 mg 06/06/23 10:09 06/06/23 10:20 Famotidine/Pf 20 Mg/2 Ml Vial IVPUSH 06/06/23 10:10 20 mg ONCE ONE Administration Medical Decision Making Medical Decision Making [facility] Narrative: 1011 57 yo f presents w/ allergic reaction since yesterday after eating a salad. PE w/ swelling to L upper eyelid and urticaria w/ superimposed excoriations throughout upper and lower extremities Likely allergic reaction. Unlikely acute anaphylactic reaction. No signs of airway compromise. Plan at this time will give IV Pepcid, Decadron, Benadryl and observe patient. Differential Diagnosis Differential Diagnoses: The differential diagnosis associated with the presentation includes Likely allergic reaction. Unlikely acute anaphylactic reaction. No signs of airway compromise. Admission/Observation Consideration of admission/observation: Escalation of care including admission/observation considered Critical Care Time Critical Care Time Critical Care Time: Yes Total Critical Care Time: 35 Attestation: I attest to this time spent taking care of the patient, obtaining history, physical, giving IV medications. Discharge Plan Discharge Clinical Impression: Allergic reaction Patient Disposition: Home, Self-Care Instructions: General Allergic Reaction (ED), Allergy Testing (ED) Additional Instructions: Take your medications as prescribed. If you were prescribed antibiotics today, it is important that you take your medication to their entirety, do not skip any doses, do not finish them early. Follow-up with your primary care provider this week. Return to the emergency department with new or worsening symptoms. Such as fevers, chills, chest pain, shortness of breath, nausea, vomiting, dizziness, headache, vision changes, lethargy In case of emergency call 911 Prescriptions: New prednisone 20 mg tablet 40 mg PO DAILY 5 Days Qty: 10 0RF diphenhydramine HCl [Benadryl] 25 mg capsule 25 mg PO TID PRN (Reason: allergic reaction) Qty: 20 0RF epinephrine [EpiPen 2-Jose A] 0.3 mg/0.3 mL auto-injector 0.3 mg IM Q4H PRN (Reason: anaphylaxis) Qty: 2 0RF No Action colesevelam 625 mg tablet 1,250 mg PO BID Qty: 360 2RF levothyroxine 150 mcg capsule 150 mcg PO DAILY Qty: 30 2RF albuterol sulfate 90 mcg/actuation aerosol powdr breath activated 2 inh inhalation Q4-6H PRN (Reason: shortness of breath or wheezing) Qty: 1 0RF esomeprazole magnesium 20 mg capsule,delayed release(DR/EC) 20 mg PO BID Qty: 120 2RF erythromycin 5 mg/gram (0.5 %) ointment 0.5 inch ophthalmic (eye) BID Qty: 3.5 0RF escitalopram oxalate [Lexapro] 10 mg tablet 10 mg PO DAILY magnesium oxide 400 mg magnesium tablet 400 mg PO BEDTIME 30 Days Qty: 30 3RF riboflavin (vitamin B2) 400 mg tablet 400 mg PO DAILY 30 Days Qty: 30 3RF montelukast 10 mg tablet 10 mg PO DAILY levothyroxine 125 mcg tablet 125 mcg PO DAILY sucralfate 100 mg/mL suspension 10 ml PO Q6H Qty: 400 2RF Referrals: [facility] [Outside] - 2 days Rigoberto Mahajan MD [Primary Care Provider] - 2 days Interventions: ED Discharge Assessment Last Done: 06/06/23 12:21 Discharge Date/Time: 06/06/23 12:22
--- NOTE | 2023-06-06 10:03 | PC.NURSE ---
patient a&ox3, vss, pt speaking in full sentences denies difficulty breathing, notable lt eye swelling, pt states her hives have returned from last night as well, pt states that she took 2 benadryl last night which helped symptoms but they returned again this morning and came in to be seen. pt unsure what it was in the salad she ate causing this as she eats that type of salad often, pt has been seeing an billing customer service representative and had allergy testing.
[2023-06-06] MEDS: Famotidine/PF 20 MG/2 ML VIAL IVPUSH (10:20)
[2023-06-06] MEDS: dexAMETHasone sod phosphate 10 MG/ML VIAL IVPUSH (10:20)
[2023-06-06] MEDS: diphenhydrAMINE HCL 50 MG/ML VIAL IVPUSH (10:20)
--- NOTE | 2023-06-06 10:28 | PC.NURSE ---
pt medicated per order
[2023-06-06 12:16] VITALS: BP 127/68; PULSE 82; RESP 18; TEMP 36.7; O2SAT 98
== END 2023-06-06 12:22 | disposition home or self-care (01) ==
PROVIDERS: Emergency Provider Emergency Medicine; PCP Internal Medicine
DX: L50.0 Allergic urticaria (principal); Z79.899 Other long term (current) drug therapy
CPT/HCPCS: 96374; 96375; 99284; J1100; J1200

== ENCOUNTER 2023-10-10 08:45 | Outpatient (REF) | payer OTHER, SELFPAY ==
--- NOTE | ~2023-10-10 | XR_ITS ---
EXAMINATION: XR KNEE, RIGHT CLINICAL INFORMATION: Pain. COMPARISON: None available. TECHNIQUE: AP, lateral and sunrise views of the right knee. FINDINGS: Prosthetic components of the total knee arthroplasty are appropriately aligned without periprosthetic fracture or abnormal lucency. No component migration. No joint effusion. XR/XR knee RT 3V IMPRESSION: Appropriate alignment of the right total knee arthroplasty without evidence of complications. EXAMINATION: XR KNEE, LEFT CLINICAL INFORMATION: Pain. COMPARISON: None available. TECHNIQUE: AP, lateral and sunrise views of the left knee. FINDINGS: Prosthetic components of the total knee arthroplasty are appropriately aligned without periprosthetic fracture or abnormal lucency. No component migration. No joint effusion. IMPRESSION: Appropriate alignment of the left total knee arthroplasty without evidence of complications.
--- NOTE | ~2023-10-10 | XR_ITS ---
EXAMINATION: XR KNEE, RIGHT CLINICAL INFORMATION: Pain. COMPARISON: None available. TECHNIQUE: AP, lateral and sunrise views of the right knee. FINDINGS: Prosthetic components of the total knee arthroplasty are appropriately aligned without periprosthetic fracture or abnormal lucency. No component migration. No joint effusion. XR/XR knee LT 3V IMPRESSION: Appropriate alignment of the right total knee arthroplasty without evidence of complications. EXAMINATION: XR KNEE, LEFT CLINICAL INFORMATION: Pain. COMPARISON: None available. TECHNIQUE: AP, lateral and sunrise views of the left knee. FINDINGS: Prosthetic components of the total knee arthroplasty are appropriately aligned without periprosthetic fracture or abnormal lucency. No component migration. No joint effusion. IMPRESSION: Appropriate alignment of the left total knee arthroplasty without evidence of complications.
== END 2023-10-10 08:46 | disposition home or self-care (01) ==
LOC: HO.HOSX 08:45
PROVIDERS: Visit Provider Orthopaedic Surgery
DX: M25.562 Pain in left knee (principal); M25.561 Pain in right knee
CPT/HCPCS: 73562

== ENCOUNTER 2023-10-10 08:57 | Outpatient (AMB) | payer OTHER, SELFPAY ==
--- NOTE | 2023-10-10 09:01 | A.OFFVIS_ITS ---
Vital Signs 10/10/23 09:16 Height 5 ft 1 in Weight 210 lb BMI 39.7 Intake Visit Reasons: [employer]-B/L knee pain, Low back pain Intake Note: Janelle is a 57 year old female who presents today with complaints of progressively worsening low back pain which radiates down her left leg. The patient states that her symptoms have worse over the last few years. She has had cortisone i njections in her low back in the past. The injections gave her no relief. She has also done physical therapy which aggravated her pain. She also reports intermittent weakness in her left leg. She did fall several weeks ago because of the weakness. She has been walking with a cane since that time. The patient did undergo cervical spine surgery by Dr. Hayes approximately 5 years ago. She also underwent bilateral total knee replacement surgeries in the past. She denies any fevers or chills. She has tried Tylenol which gives her minimal relief. Allergies Seasonal Allergies Allergy (Mild, Verified 10/10/23 09:17) Unknown banana Allergy (Verified 10/10/23 09:17) Hives grass pollen Allergy (Verified 10/10/23 09:17) Hives tree and shrub pollen Allergy (Verified 10/10/23 09:17) Hives walnut Allergy (Verified 10/10/23 09:17) Hives Medication List - Last Reconciled 10/10/23 by Valentin Block MD albuterol sulfate 90 mcg/actuation 2 inhalations inhalation Q4-6H PRN colesevelam 1,250 mg (2 x 625 mg) PO BID diphenhydramine HCl (Benadryl) 25 mg PO TID PRN epinephrine (EpiPen 2-Jose A) 0.3 mg (0.3 mL) IM Q4H PRN erythromycin 0.5 inches ophthalmic (eye) BID escitalopram oxalate 20 mg PO DAILY esomeprazole magnesium 20 mg PO BID levothyroxine 125 mcg PO DAILY magnesium oxide 400 mg PO BEDTIME 30 days montelukast 10 mg PO DAILY prednisone 40 mg (2 x 20 mg) PO DAILY 5 days riboflavin (vitamin B2) 400 mg PO DAILY 30 days sucralfate 10 mL PO Q6H PFSH Medical History Diaphragmatic hernia Hyperlipidemia Asthma DJD (degenerative joint disease) Anxiety Depression Hypothyroidism Morbid obesity GERD (gastroesophageal reflux disease) EBONY (obstructive sleep apnea) Surgical History H/O neck surgery H/O rotator cuff surgery Hx laparoscopic cholecystectomy History of removal of laparoscopic gastric banding device Hx of carpal tunnel repair Hx of laparoscopic gastric banding Hx of total knee replacement Hx of colonoscopy History of esophagogastroduodenoscopy (EGD) Family History Other GERD (gastroesophageal reflux disease) Social History Alcohol intake: never Patient Tobacco Use Status: Never used Tobacco Substance Use Type: Marijuana Physical Exam Vital Signs: BMI result Body Mass Index 39.7 Const Other: Well-nourished well-developed very friendly female awake alert and oriented x3 in no acute distress Back/Spine/Pelvis Other: Low back examination shows left-sided paraspinal muscle tenderness, pain with range of motion, positive straight leg raise test on the left at 70 degrees, 4/5 strength with testing of her left hip flexors and knee extensors when compared to 5/5 strength on her right side Extrem Other: Bilateral knee examination shows that the surgical incisions are well healed, no erythema, full active extension and flexion to 120 degrees, her patellae track well Results Reviewed Results Reviewed: X-rays of the patient's bilateral knees taken today show total knee arthroplasties in good position with no signs of loosening, no acute bony abnormalities Assessment & Plan Assessment & Plan (1) Low back pain radiating to left leg: Code(s): M54.50 - Low back pain, unspecified; M79.605 - Pain in left leg Category: Medical Plan Ms. Soto presents with progressively worsening low back pain which radiates down her left leg as well as associated left leg weakness most likely due to lumbar stenosis or a disc herniation. Thus, I will send the patient for an MRI of her lumbar spine for further evaluation. I will contact her by phone once the MRI results are available. I did give her a prescription for a Medrol Dosepak to help with her symptoms in the meantime. Feel free to call me at any time should questions regarding her orthopedic management arise. I spent 20 minutes in reviewing the patient's records and imaging studies, seeing the patient and documenting in the medical record. Orders: Orders XR knee LT 3V Today M25.562 - Pain in left knee XR knee RT 3V Today M25.561 - Pain in right knee MR lumbar spine wo con Today M54.50 - Low back pain, unspecified, M79.605 - Pain in left leg Medications: New methylprednisolone (Medrol (Jose A)) PO PER PKG DIR 21 ea 0RF Coding Level of Care Code Est Pt Level 3 (75469) Diagnoses Low back pain radiating to left leg M54.50; M79.605
[2023-10-10 09:16] VITALS: BMI 39.7
== END 2023-10-10 09:32 | disposition home or self-care (01) ==
PROVIDERS: PCP Internal Medicine; Visit Provider Orthopaedic Surgery
DX: M54.50 Low back pain, unspecified (principal); M79.605 Pain in left leg
CPT/HCPCS: 99214

== ENCOUNTER 2025-03-24 13:24 | Outpatient (AMB) | payer OTHER, SELFPAY ==
--- NOTE | 2025-03-24 13:24 | A.OFFVIS_ITS ---
Vital Signs 03/24/25 13:26 Height 5 ft 1 in Weight 211 lb 10.3 oz BMI 40.0 BP 128/76 Blood Pressure Location Lt brachial Position Sitting Pulse 98 Intake Visit Reasons: New problem, fatty liver. Bloating,abd. pain Allergies Seasonal Allergies Allergy (Mild, Verified 03/24/25 13:28) Unknown banana Allergy (Verified 03/24/25 13:28) Hives grass pollen Allergy (Verified 03/24/25 13:28) Hives tree and shrub pollen Allergy (Verified 03/24/25 13:28) Hives walnut Allergy (Verified 03/24/25 13:28) Hives HPI HPI New problem, fatty liver. Bloating,abd. pain: Details: 59 yr old f w/ hypothyroid, depression, asthma, ?ankylosing spondylitis here for f/u RECAP: She had nausea, vomiting, clear colored more like mucous one month she had bad reflux, has to avoid triggers like coffee, she did have a lap band for 12 yrs and was removed due to worsening GERD She had headaches worse in the morning she had noted more loose stools than normal, sometimes urgency, she does have fo rmed stools in between hard to tolerate dairy EGD 2019--Esophagitis , lap band constriction noted Rept: EGD/colo 11/2022 Endoscopy Findings: erosive esophagitis hiatal hernia bile acid reflux gastritis duodenitis Colonoscopy Findings: polyp internal hemorrhoids Path: Active esophagitis, and SSA removed INTERIM: She is now referred for fatty liver this time round she saw bariatric surgeon for sleeve and had upper Gi study with small hiatal hernia she feels she cant breath all the time, has blaoting she had diagnostics and told she had fatty liver she showed me LFT recently she does have hx of multiple allergies to food and environmental EXAM: GENERAL: The patient is well developed and nontoxic. VITAL SIGNS:see workflow HEENT: Nonicteric sclerae, PERRLA, Oropharynx clear. Moist mucous membranes. Conjunctivae appear well perfused. No thyroid mass. CHEST: Chest wall is nontender. HEART: Regular rate and rhythm without murmurs. LUNGS: Clear to auscultation bilaterally. ABDOMEN: Soft, positive bowel sounds, nontender, no organomegaly.no flank tenderness SKIN: No rash, no excessive bruising, petechiae, or purpura. NEUROLOGIC: Cranial nerves II-XII intact without motor/sensory deficit. A/P: 1/ Bloating - food allergies, maybe CHO intolerance or SIBO, awaiting sleeve surgery 2/ fatty liver, nml LFT Plan: 1/ avoid food allergens as discussed 2/ trial of rifaximin for 2 weeks PFSH Medical History Diaphragmatic hernia Hyperlipidemia Asthma DJD (degenerative joint disease) Anxiety Depression Hypothyroidism Morbid obesity GERD (gastroesophageal reflux disease) EBONY (obstructive sleep apnea) Surgical History H/O neck surgery H/O rotator cuff surgery Hx laparoscopic cholecystectomy History of removal of laparoscopic gastric banding device Hx of carpal tunnel repair Hx of laparoscopic gastric banding Hx of total knee replacement Hx of colonoscopy History of esophagogastroduodenoscopy (EGD) Family History Other GERD (gastroesophageal reflux disease) Social History Alcohol intake: never Patient Tobacco Use Status: Never used Tobacco Substance Use Type: Marijuana Physical Exam Vital Signs: Last Vital Signs Pulse 98 03/24/25 13:26 BP 128/76 03/24/25 13:26 BMI result Body Mass Index 40.0 Assessment & Plan Assessment & Plan (1) Abdominal bloating: Code(s): R14.0 - Abdominal distension (gaseous) Category: Medical Plan: as above Medications: New rifaximin 550 mg PO TID 42 tabs 0RF 2 weeks Coding Level of Care Code Est Pt Level 3 (61024) Diagnoses Abdominal bloating R14.0
[2025-03-24 13:26] VITALS: BP 128/76; PULSE 98; BMI 40.0
--- OUTSIDE RECORDS SUMMARY | 2025-03-24 22:06 | XMS_ITS | Clinical Summary ---
Author Organization [facility] Address [address] [place] [phone] Phone Care Team Providers Care Criminal Research Specialist Name Role Phone Unavailable Primary Care Provider Unavailabl e Social History Tobacco Use Types Packs/Day Years Used Date Smoking Tobacco: Never Assessed Education Answer Date Recorded Are you interested in more education? Not on renard e 08/13/2022 Are you concerned about learning? Not on file 08/13/2022 No 08/13/2022 No 08/13/2022 Digital Access Answer Date Recorded No 09/13/2022 No 09/13/2022 Reliable internet access at home? Not on file 09/13/2022 Device with a working camera? Not on file Comments Unknown Sex and Gender Information Value Date Recorded Sex Assigned at Not on file Legal Sex Female 9:59 AM EDT Gender Identity Not on file Sexual Orientation Not on file Plan of Treatment Health Maintenance Due Date Last Done Comments Adult Td,Tdap Booster 1967 LIPID PANEL 1967 DEPRESSION SCREENING 1979 SMOKING Hx and SMOKELESS TOB ACCO SCREENING 10/23/1980 HEPATITIS C SCREENING 10/23/1985 HIV ONE-TIME SCREENING (18-6 5 YEARS) 10/23/1985 PAP SMEAR 10/23/1988 MAMMOGRAM 2007 COLOGUARD 10/23/2012 COLONOSCOPY 10/23/2012 COLORECTAL CANCER SCREENING 10/23/2012 FIT TEST 10/23/2012 FOBT 10/23/2012 SIGMOIDOSCOPY 10/23/2012 VIRTUAL COLONOSCOPY 10/23/2012 PNEUMOCOCCAL VACCINES (50+ y ears) (1 of 1 - PCV) 10/23/2017 ZOSTER VACCINES (1 of 2) 10/23/2017 INFLUENZA VACCINE (#1) 2024 COVID-19 VACCINE ( - 2024-2 6 season) 2024 RSV VACCINE (1 - 1-dose 75+ series) 10/23/2042 HEPATITIS A VACCINES Aged Out No long er eligible based on patient's age to complete this topic HIB VACCINES Aged Out No longer eligi ble based on patient's age to complete this topic MENINGOCOCCAL VACCINES (ACWY) Aged Out No longer eligible based on patient's age to complete this topic MENINGOCOCCAL VACCINES (B) Aged Out N o longer eligible based on patient's age to complete this topic Medical Devices Not on file Additional Source Comments The information contained in this document represents components of the legal health record. It is not the complete legal health record.[facility]
--- OUTSIDE RECORDS SUMMARY | 2025-03-24 22:06 | XMS_ITS ---
Author Name [facility] Organization Unknown Encounters Encounter Type Encounter Reason Primary Diagnosis Location Date Ambulatory [facility] 01/13/2023 Ambulatory [facility] 11/14/2022 Ambulatory [facility] 10/10/2022 Ambulatory [facility] 09/05/2022 Ambulatory [facility] 08/31/2022 Ambulatory [facility] 08/31/2022 Ambulatory [facility] 08/31/2022
--- OUTSIDE RECORDS SUMMARY | 2025-03-24 22:06 | XMS_ITS | Clinical Summary ---
Author Organization [facility] Prior to 09/14/[address] [place] [id number] Care Team Providers Care Regulatory Internship Name Role Phone Rigoberto Mahajan MD Primary Care Provider Allergies No known active allergies Medications Medication Sig Dispensed Refills Start Date End Date Status levothyroxine (SYNTHROID, LEVOXYL) tablet 112 mcg TK 1 T PO QD 2 12/12/2016 Active omeprazole (PRILOSEC) 40 MG capsule TK 1 C PO QD 2 11/26/2016 Active montelukast (SINGULAIR) 10 MG tablet TK 1 T PO QHS 0 10/21/2016 Active spironolactone (ALDACTONE) 100 MG tablet TK 1 T PO QD 2 12/12/2016 Active escitalopram (LEXAPRO) 20 MG tablet TK 1 T PO ONCE A DAY 2 11/27/2016 Active LOTEMAX 0.5 % GEL INSTILL 1 GTT IN OU QID 0 11/11/2016 Active methylphenidate (CONCERTA) 36 MG CR tablet TK 1 T PO QD 0 09/27/2016 Active trimethoprim-polym yxin b (POLYTRIM) ophthalmic solution PLACE 1 DROP IN THE RIGHT EYE Q 4 TO 6 H FOR 7 DAYS 0 10/10/2016 Active diclofenac (VOLTAREN) 75 MG EC tablet TAKE 1 TABLET BY MOUTH EVERY DAY 30 tablet 0 08/15/2017 Active carisoprodol (SOMA) 350 MG tablet TAKE 1 TABLET PO TID 0 02/07/2020 Active famotidine (PEPCID) 20 MG tablet TK 1 T PO QD 0 03/16/2020 Active naproxen (NAPROSYN) 500 MG tablet TK 1 T PO BID 0 03/18/2020 Active ALPRAZolam (XANAX) 0.25 MG tablet Take 0.25 mg by mouth daily as needed. 0 04/20/2020 Active albuterol 108 (90 Base) MCG/ACT inhaler 2 puffs 4 (four) times a day as needed. 0 04/19/2021 Active Budesonide-Formote rol Fumarate (SYMBICORT IN) Inhale into the lungs. 0 08/26/2013 Active fluticasone (FLONASE) 50 MCG/ACT nasal spray INSTILL 1-2 SPRAYS INTO EACH NOSTRIL DAILY NEEDED 0 05/04/2021 Active ondansetron (ZOFRAN) 8 MG tablet Take 8 mg by mouth every 12 (twelve) hours. 0 03/26/2021 Active Stimulant Laxative 8.6-50 MG Take 2 tablets by mouth every evening. 0 08/22/2021 Active valACYclovir (VALTREX) 1000 MG tablet Take 2,000 mg by mouth 2 (two) times a day. 0 08/09/2021 Active oxyCODONE (ROXICODONE) 5 MG immediate release tablet Take 1-2 tabs every 4-6 hours as needed for pain. Status post right total knee replacement. 36 tablet 0 09/03/2021 Active gabapentin (NEURONTIN) 300 MG capsule Take 1 capsule (300 mg total) by mouth every evening. 30 capsule 2 11/12/2021 Active celecoxib (CeleBREX) 200 MG capsule Take 1 capsule (200 mg total) by mouth daily. 30 capsule 2 11/12/2021 Active oxyCODONE (ROXICODONE) 5 MG immediate release tablet Take 1 tab every 12 hours as needed for pain 30 tablet 0 02/01/2022 Active amoxicillin (AMOXIL) 500 MG tablet Take 4 tabs 1 hour prior to dental appointment 20 tablet 3 02/11/2022 Active traMADol (ULTRAM) 50 MG tablet Take 1 tab every 12 hours as needed for pain 40 tablet 0 03/18/2022 Active amphetamine-dextro amphetamine (ADDERALL, 20MG,) 20 MG tablet 1 tablet 0 Active fluconazole (DIFLUCAN) 150 MG tablet Take 1 tablet (150 mg total) by mouth daily. 0 04/07/2022 Active sulfamethoxazole-t rimethoprim (Bactrim DS) 800-160 MG per tablet Take 1 tablet (160 mg of trimethoprim total) by mouth 2 (two) times a day. 14 tablet 0 06/17/2022 Active methocarbamol (ROBAXIN) 750 MG tablet 0 06/15/2022 Active pantoprazole (PROTONIX) 40 MG tablet Take 1 tablet (40 mg total) by mouth. 0 11/29/2019 Active Xarelto 10 MG tablet 0 06/15/2022 Active oxyCODONE (ROXICODONE) 5 MG immediate release tablet Take 1-2 tabs every 4 hours as needed for pain 50 tablet 0 06/21/2022 Active Active Problems Problem Noted Date Diagnosed Date Effusion of right knee joint 05/07/2020 Traumatic tear of medial men iscus of knee, right, initial encounter 01/30/2020 Chronic pain of left knee 05/02/2017 Family History Medical History Relation Name Comments Diabetes Paternal Grandfather Diabetes Paternal Grandmother Relation Name Status Comments Paternal Grandfather Paternal Grandmother Social History Tobacco Use Types Packs/Day Years Used Date Smoking Tobacco: Never Assessed Sex and Gender Information Value Date Recorded Sex Assigned at Not on file Gender Identity Not on file Sexual Orientation Not on file Job Start Date Occupation Industry Not on file Not on file Not on file Last Filed Vital Signs Vital Sign Reading Time Taken Comments Blood Pressure - - Pulse - - Temperature - - Respiratory Rate - - Oxygen Saturation - - Inhaled Oxygen Concentration - - Weight 79.4 kg (175 lb) 01/30/2020 2:27 PM EDT Height 152.4 cm (5') 01/30/2020 2:27 PM EDT Body Mass Index 34.18 01/30/2020 2:27 PM EDT Plan of Treatment Health Maintenance Due Date Last Done Comments Hepatitis B Vaccines (1 of 3 - 3-dose series) 1965 Hepatitis C Screening 1965 COVID-19 Vaccine (#1) 04/25/1968 Depression Screening 1979 BMI Counseling 10/23/1985 Preventative Health Evaluation 10/23/1985 DTap / Tdap / Td (1 - Tdap) 10/23/1986 Cervical Cancer Screening (P ap Smear) 10/23/1988 Colon Cancer Screening (Colonoscopy) 10/23/2012 Breast Cancer Screening (Mammogram) 10/23/2017 Shingrix-Zoster Vaccine (1 of 2) 10/23/2017 Influenza Vaccine (#1) 2024 Pneumococcal Vaccine Aged Out No long er eligible based on patient's age to complete this topic RSV Ped < 20 months Aged Out No longe r eligible based on patient's age to complete this topic Care Teams Regulatory Internship Relationship Specialty Start Date End Date Rigoberto Mahajan MD [address] [id number] PCP - General Internal Medicine 11/15/16
--- OUTSIDE RECORDS SUMMARY | 2025-03-24 22:06 | XMS_ITS | Encounter Summary ---
Author Organization [facility] Address [address] [place] [address] Care Team Providers Care Inside Sales Engineer Name Role Phone Rigoberto Mahajan MD Primary Care Provider + [phone] Encounter Details Date Type Department Care Team (Late Contact Info) Description 01/21/2025 Results Follow-Up General Surgery - [place] 175 [facility] [address] [place] [address] Ale Curry MD [address] [place] [phone] Social History Tobacco Use Types Packs/Day Years Used Date Smoking Tobacco: Never Smokeless Tobacco: Never Comments Unknown Sex and Gender Information Value Date Recorded Sex Assigned at Female 12/13/2024 11:13 AM EDT Legal Sex Female 10:24 AM EST Gender Identity Female 12/13/2024 11:13 AM EDT Sexual Orientation Straight 12/13/2024 11 :13 AM EDT documented as of this encounter Plan of Treatment Upcoming Encounters Date Type Department Care Team (Late Contact Info) Description 06/17/2025 10:30 AM EST Nutrition Bariatric Surgery - [place] 175 [facility] [address] [place] [address] 175 [facility] [address] [place] [address] documented as of this encounter Visit Diagnoses Not on filedocumented in this encounter Care Teams Inside Sales Engineer Relationship Specialty Start Date End Date Rigoberto Mahajan MD [address] [place] [address] PCP - General Internal Medicine 11/01/24 documented as of this encounter
--- OUTSIDE RECORDS SUMMARY | 2025-03-24 22:06 | XMS_ITS | Encounter Summary ---
Author Organization [facility] Address [address] [place] [address] Care Team Providers Care Pumping Station Supervisor Name Role Phone Rigoberto Mahajan MD Primary Care Provider + [phone] Encounter Details Date Type Department Care Team (Late Contact Info) Description 03/20/2025 Results Follow-Up Bariatric Surgery - [place] [address] [address] Ale Curry MD [address] [place] [phone] Social History Tobacco Use Types Packs/Day Years [...] 10:30 AM EST Nutrition Bariatric Surgery - [place] [address] [address] [address] documented as of this encounter Visit Diagnoses Not on filedocumented in this encounter Care Teams Pumping Station Supervisor Relationship Specialty Start Date End Date Rigoberto Mahajan MD [address] [place] [address] PCP - General Internal Medicine 11/01/24 documented as of this encounter
--- OUTSIDE RECORDS SUMMARY | 2025-03-24 22:06 | XMS_ITS | Clinical Summary ---
Author Organization [address] [place] [address] [place] [phone] Phone Care Team Providers Care Field Radio Operator Name Role Phone Rigoberto Mahajan MD Primary Care Provider + [phone] Allergies Active Allergy Reactions Criticality Noted Date Comments Other Other 12/13/2024 Seasonal Allergies, Dandelion tea, banana, avocado, Medications No known medications Encounters Date Type Department Care Team Description 03/20/2025 Results Follow-Up Bariatric Surgery - [address] [phone] Ale Curry MD 03/12/2025 7:40 AM EST Lab Draw Station [address] [phone] Morbid obesity with BMI of 40.0-44.9, adult (CMS/HCC V24, CMS/HCC V28) 03/11/2025 2:30 PM EST Nutrition Bariatric Surgery - [address] [phone] Class 3 severe obesity without serious comorbidity with body mass index (BMI) of 40.0 to 44.9 in adult, unspecified obesity type (CMS/HCC V24, CMS/HCC V28) (Primary Dx) 01/21/2025 Results Follow-Up General Surgery [address] [place] [phone] Ale Curry MD 01/13/2025 8:00 AM EDT - 01/13/2025 11:59 PM EDT Hospital Encounter [facility] [address] [place] [phone] Morbid obesity with BMI of 40.0-44.9, adult ([facility] V24, [facility] V28); Gastroesophageal reflux disease, unspecified whether esophagitis present Discharge Disposition: Home or Self Care from Last 3 Months Surgical History Surgery Date Site/Laterality Comments TOTAL KNEE ARTHROPLASTY PROCEDURE: SD ARTHRP KNE CONDYLE&PLATU MEDIAL&LAT COMPARTMENTS CHOLECYSTECTOMY PROCEDURE: SD LAPAROSCOPY SURG CHOLECYSTECTOMY NECK SURGERY 04/26/2018 PROCEDURE: HISTORICAL NECK SURGERY; COMMENT: Right C7-T1 decomp/disc Medical History Medical History Date Comments Memory loss DX:Memory loss Depressive disorder DX:Depressiv e disorder Anxiety state DX:Anxiety state Thyroid disease DX:Thyroid disea se Asthma DX:Asthma Esophageal reflux DX:Esophageal reflux Social History Tobacco Use Types Packs/Day Years Used Date Smoking Tobacco: Never Smokeless Tobacco: Never Comments Unknown Sex and Gender Information Value Date Recorded Sex Assigned at Female 12/13/2024 11:13 AM EDT Legal Sex Female 10:24 AM EST Gender Identity Female 12/13/2024 11:13 AM EDT Sexual Orientation Straight 12/13/2024 11 :13 AM EDT Last Filed Vital Signs Vital Sign Reading Time Taken Comments Blood Pressure 132/74 12/13/2024 9:21 AM EDT Pulse 76 12/13/2024 9:21 AM EDT Temperature 36.7 C (98 F) 12/13/2024 9:21 AM EDT Respiratory Rate - - Oxygen Saturation - - Inhaled Oxygen Concentration - - Weight 98 kg (216 lb) 03/11/2025 2:45 PM EST Height 152.4 cm (5') 12/13/2024 9:21 AM EDT Body Mass Index 42.18 12/13/2024 9:21 AM EDT Plan of Treatment Upcoming Encounters Date Type Department Care Team (Late st Contact Info) Description 06/17/2025 10:30 AM EST Nutrition Bariatric Surgery - [place] [address] [facility] [address] [place] [phone] Mary Jane Jamil, RD 175 [facility] Ezequiel [address] [place] [phone] Health Maintenance Due Date Last Done Comments Breast Cancer Screening 1965 Colorectal Cancer Screening: Colonoscopy 1965 Hepatitis A Vaccines (1 of 2 - Risk 2-dose series) 10/23/1986 Hepatitis B Vaccines (1 of 3 - 19+ 3-dose series) 10/23/1986 Cervical Cancer Screening: P ap Smear 10/23/1988 Pneumococcal Vaccine: 50+ Ye ars (1 of 1 - PCV) 10/23/2017 RSV Immunization Adult Patie nts (1 - Risk 50-74 years 1-dose series) 10/23/2017 Zoster Vaccines (1 of 2) 10/23/2017 HIV Screening 03/24/2022 Hepatitis C Screening 03/24/2022 Social Influencers of Health Screening 03/24/2022 Depression Screening 04/17/2024 COVID-19 Vaccine (2 - 2024-2 6 season) 2024 11/29/2020 Influenza Vaccine (#1) 2024 Cholesterol Screening (Lipid Panel) 03/12/2030 03/12/2025 DTaP,Tdap,and Td Vaccines (2 - Td or Tdap) 10/23/2032 10/23/2022 HIB Vaccines Aged Out No longer eligi ble based on patient's age to complete this topic HPV Vaccines Aged Out No longer eligi ble based on patient's age to complete this topic IPV Vaccines Aged Out No longer eligi ble based on patient's age to complete this topic MMR Vaccines Aged Out No longer eligi ble based on patient's age to complete this topic Meningococcal ACWY Vaccine Aged Out N o longer eligible based on patient's age to complete this topic Meningococcal B Vaccine Aged Out No l onger eligible based on patient's age to complete this topic RSV Immunization Patients Un lauryn 20 months Aged Out No longer eligible b ased on patient's age to complete this topic Varicella Vaccines Aged Out No longer eligible based on patient's age to complete this topic Procedures Procedure Name Priority Date/Time Associated Diagnosis Comments TRIIODOTHYRONINE FREE Routine 03/12/2025 7:58 AM EST Morbid obesity with BMI of 40.0-44.9, adult ([facility] V24, [facility] V28) FREE THYROXINE WITH REFLEX TO FREE TRIIODOTHYRONINE Routine 03/12/2025 7:58 AM EST Morbid obesity with BMI of 40.0-44.9, adult (CMS/HCC V24, CMS/HCC V28) HEMOGLOBIN A1C Routine 03/12/2025 7:58 AM EST Morbid obesity with BMI of 40.0-44.9, adult (CMS/HCC V24, CMS/HCC V28) FERRITIN Routine 03/12/2025 7:58 AM EST Morbid obesity with BMI of 40.0-44.9, adult (CMS/HCC V24, CMS/HCC V28) IRON AND TIBC Routine 03/12/2025 7:58 AM EST Morbid obesity with BMI of 40.0-44.9, adult (CMS/HCC V24, CMS/HCC V28) THYROID STIMULATING HORMONE WITH REFLEX TO FREE T4 AND FREE T3 Routine 03/12/2025 7:58 AM EST Morbid obesity with BMI of 40.0-44.9, adult (CMS/HCC V24, CMS/HCC V28) NICOTINE AND COTININE Routine 03/12/2025 7:58 AM EST Morbid obesity with BMI of 40.0-44.9, adult (CMS/HCC V24, CMS/HCC V28) CBC WITH AUTO DIFFERENTIAL Routine 03/12/2025 7:58 AM EST Morbid obesity with BMI of 40.0-44.9, adult (CMS/HCC V24, CMS/HCC V28) VITAMIN B1 Routine 03/12/2025 7:58 AM EST Morbid obesity with BMI of 40.0-44.9, adult (CMS/HCC V24, CMS/HCC V28) HELICOBACTER PYLORI BREATH TEST Routine 03/12/2025 7:58 AM EST Morbid obesity with BMI of 40.0-44.9, adult (CMS/HCC V24, CMS/HCC V28) CBC AND DIFFERENTIAL Routine 03/12/2025 7:58 AM EST Morbid obesity with BMI of 40.0-44.9, adult (CMS/HCC V24, CMS/HCC V28) COMPREHENSIVE METABOLIC PANEL Routine 03/12/2025 7:58 AM EST Morbid obesity with BMI of 40.0-44.9, adult (CMS/HCC V24, CMS/HCC V28) CORTISOL Routine 03/12/2025 7:58 AM EST Morbid obesity with BMI of 40.0-44.9, adult (CMS/HCC V24, CMS/HCC V28) FOLATE Routine 03/12/2025 7:58 AM EST Morbid obesity with BMI of 40.0-44.9, adult (CMS/HCC V24, CMS/HCC V28) INSULIN, TOTAL Routine 03/12/2025 7:58 AM EST Morbid obesity with BMI of 40.0-44.9, adult (CMS/HCC V24, CMS/HCC V28) LIPID PANEL WITH REFLEX TO DIRECT LDL Routine 03/12/2025 7:58 AM EST Morbid obesity with BMI of 40.0-44.9, adult (CMS/HCC V24, CMS/HCC V28) PARATHYROID HORMONE INTACT Routine 03/12/2025 7:58 AM EST Morbid obesity with BMI of 40.0-44.9, adult (CMS/HCC V24, CMS/HCC V28) URIC ACID Routine 03/12/2025 7:58 AM EST Morbid obesity with BMI of 40.0-44.9, adult (CMS/HCC V24, CMS/HCC V28) VITAMIN B12 Routine 03/12/2025 7:58 AM EST Morbid obesity with BMI of 40.0-44.9, adult (CMS/HCC V24, CMS/HCC V28) VITAMIN D 25 HYDROXY Routine 03/12/2025 7:58 AM EST Morbid obesity with BMI of 40.0-44.9, adult (CMS/[facility] V24, [facility] V28) XR UGI W AIR CONTRAST Routine 01/13/2025 8:32 AM EDT Morbid obesity with BMI of 40.0-44.9, adult ([facility] V24, [facility] V28) Gastroesophageal reflux disease, unspecified whether esophagitis present from Last 3 Months Results * (ABNORMAL) Thyroid stimulating hormone with reflex to free t4 and free t3 (03/12/2025 7:58 AM EST) TSH 9.57(H) 0.40 - 4.00 mcIU/mL 03/12/2025 11:18 AM EST [facility] Blood Venous blood specimen / Unknown Venipuncture / Unknown 03/12/2025 7:58 AM EST 03/12/2025 9:09 AM EST us Ale Curry MD LAB BLOOD ORDERABLES Fi nal Result Performing Organization Address [facility]/ZIP Co de Phone Number [facility] [address] [place] [address], [place] [phone] * Free thyroxine with reflex to free triiodothyronine (03/12/2025 7:58 AM EST) Free T4 0.96 0.70 - 1.80 ng/dL 03/12/2025 12:07 PM EST [facility] Blood Venous blood specimen / Unknown Venipuncture / Unknown 03/12/2025 7:58 AM EST 03/12/2025 9:09 AM EST us Ale Curry MD LAB BLOOD ORDERABLES Fi nal Result Performing Organization Address City/[facility]/ZIP Co de Phone Number [facility] [address] [place] [address], [place] [phone] * (ABNORMAL) Lipid panel with reflex to direct LDL (03/12/2025 7:58 AM EST) Cholesterol 229(H) 0 - 200 mg/dL 03/12/2025 11:26 AM EST [facility] Triglycerides 102 0 - 150 mg/dL 03/12/2025 11:26 AM [facility] HDL 57 >=40 mg/dL 03/12/2025 11:26 AM EST [facility] LDL Calculated 152(H) 0 - 100 mg/dL 03/12/2025 11:26 AM [facility] Comment:Estimated LDL Calcul ated using equation: Total cholesterol - HDL cholesterol - (Triglycerides/5) VLDL Cholesterol Drew 20.4 mg/dL 03/12/2025 11:26 AM [facility] Non HDL Chol. (LDL+VLDL) 172(H) <145 mg/dL 03/12/2025 11:26 AM [facility] Chol/HDL Ratio 4.0 0.0 - 4.4 03/12/2025 11:26 AM [facility] Blood Venous blood specimen / Unknown Venipuncture / Unknown 03/12/2025 7:58 AM EST 03/12/2025 9:09 AM EST us Ale Curry MD LAB BLOOD ORDERABLES Fi nal Result [facility] [address] [place] [address], * Nicotine and cotinine (03/12/2025 7:58 AM EST) Nicotine <2.0 <2.0 ng/mL 03/18/2025 8:58 AM EST [facility] Cotinine <2.0 <2.0 ng/mL 03/18/2025 8:58 AM EST [facility] Comment: Additional Reference Ranges: Active Tobacco Passive Abstinence User Exposure 2 Weeks and more Nicotine 30 - 50 ng/mL <2 ng/mL <2 ng/mL Cotinine 200 - 800 ng/mL <8 ng/mL <2 ng/mL Reference Ranges from: Clin. Chem.; 48:7311-0814 (2002) Direct any interpretive questions to the toxicology laboratory. This is for medical use only, it is not intended for forensic use. If applicable, any drug confirmation testing reported here was developed and the performance characteristics determined by [facility]. This confirmation testing has not been cleared or approved by the FDA. The laboratory is regulated under CLIA as qualified to perform high-complexity testing. This test is used for patient testing purposes. It should not be regarded as investigational or for research. Test performed at [facility], [address] , [place] [address] Jessica Clemons MD, PhD - Cut Filer Blood Venous blood specimen / Unknown Venipuncture / Unknown 03/12/2025 7:58 AM EST 03/12/2025 9:09 AM EST us Ale Curry MD LAB BLOOD ORDERABLES Fi nal Result [facility] [address] [place] [address] * CBC auto differential (03/12/2025 7:58 AM EST) WBC 5.7 4.8 - 10.8 K/mcL LAB HEMETOLOGY METHOD 03/12/2025 10:30 AM EST [facility] RBC 4.70 3.80 - 4.80 M/mcL LAB HEMETOLOGY METHOD 03/12/2025 10:30 AM EST [facility] Hemoglobin 13.4 11.5 - 16.0 g/dL LAB HEMETOLOGY METHOD 03/12/2025 10:30 AM [facility] Hematocrit 40.8 35.0 - 47.0 % LAB HEMETOLOGY METHOD 03/12/2025 10:30 AM [facility] MCV 87.2 79.0 - 98.0 FL LAB HEMETOLOGY METHOD 03/12/2025 10:30 AM [facility] MCH 28.6 27.0 - 32.0 pcg LAB HEMETOLOGY METHOD 03/12/2025 10:30 AM [facility] MCHC 32.8 32.0 - 37.0 g/dL LAB HEMETOLOGY METHOD 03/12/2025 10:30 AM [facility] RDW 14.3 11.0 - 15.0 % LAB HEMETOLOGY METHOD 03/12/2025 10:30 AM [facility] Platelets 229 130 - 400 K/mcL LAB HEMETOLOGY METHOD 03/12/2025 10:30 AM [facility] MPV 10.7 7.0 - 11.0 FL LAB HEMETOLOGY METHOD 03/12/2025 10:30 AM [facility] NRBC 0.0 <1.0 % LAB HEMETOLOGY METHOD 03/12/2025 10:30 AM [facility] NRBC Absolute 0.00 <0.10 K/mcL LAB HEMETOLOGY METHOD 03/12/2025 10:30 AM [facility] Neutrophils Relative 46.2 % LAB HEMETOLOGY METHOD 03/12/2025 10:30 AM [facility] Lymphocytes Relative 39.8 % LAB HEMETOLOGY METHOD 03/12/2025 10:30 AM [facility] Monocytes Relative 6.6 % LAB HEMETOLOGY METHOD 03/12/2025 10:30 AM [facility] Eosinophils Relative 6.3 % LAB HEMETOLOGY METHOD 03/12/2025 10:30 AM EST [facility] Basophils Relative 0.9 % LAB HEMETOLOGY METHOD 03/12/2025 10:30 AM EST [facility] Immature Granulocytes Relative 0.2 % LAB HEMETOLOGY METHOD 03/12/2025 10:30 AM [facility] Neutrophils Absolute 2.65 1.50 - 7.00 K/mcL LAB HEMETOLOGY METHOD 03/12/2025 10:30 AM EST [facility] Lymphocytes Absolute 2.28 1.00 - 5.00 K/mcL LAB HEMETOLOGY METHOD 03/12/2025 10:30 AM EST [facility] Monocytes Absolute 0.38 0.20 - 1.00 K/mcL LAB HEMETOLOGY METHOD 03/12/2025 10:30 AM EST [facility] Eosinophils Absolute 0.36 0.00 - 0.50 K/mcL LAB HEMETOLOGY METHOD 03/12/2025 10:30 AM EST [facility] Basophils Absolute 0.05 0.00 - 0.20 K/mcL LAB HEMETOLOGY METHOD 03/12/2025 10:30 AM EST [facility] Immature Granulocytes Absolute 0.01 0.00 - 0.03 K/mcL LAB HEMETOLOGY METHOD 03/12/2025 10:30 AM EST [facility] Blood Venous blood specimen / Unknown Venipuncture / Unknown 03/12/2025 7:58 AM EST 03/12/2025 9:09 AM EST us Ale Curry MD LAB BLOOD ORDERABLES Fi nal Result [facility] [address] [place] [address], * Iron and TIBC (03/12/2025 7:58 AM EST) Iron 61 40 - 150 mcg/dL 03/12/2025 11:26 AM EST [facility] TIBC 346 250 - 450 mcg/dL 03/12/2025 11:26 AM EST [facility] Iron Saturation 18 15 - 50 % 11:26 AM [facility] Blood Venous blood specimen / Unknown Venipuncture / Unknown 03/12/2025 7:58 AM EST 03/12/2025 9:09 AM EST us Ale Curry MD LAB BLOOD ORDERABLES Fi nal Result Performing Organization Address City/[facility]/ZIP Co de Phone Number [facility] [address] [place] [address], [place] [phone] * Insulin, total (03/12/2025 7:58 AM EST) Pathologist [facility] Insulin 18.0 3.0 - 25.0 mcIU/mL 03/12/2025 12:25 PM EST [facility] Blood Venous blood specimen / Unknown Venipuncture / Unknown 03/12/2025 7:58 AM EST 03/12/2025 9:09 AM EST Narrative [facility] - 03/12/2025 12:25 PM EST Insulin reference range based on fasting status. Insulin values vary in non-fasting individuals. us Ale Curry MD LAB BLOOD ORDERABLES Fi nal Result [facility] [address] [place] [address], [place] [phone] * Helicobacter pylori breath test (03/12/2025 7:58 AM EST) Pathologist [facility] H Pylori Breath Test Negative Negative LAB CHEMISTRY METHOD 03/12/2025 12:55 PM EST [facility] Breath Oral cavity structure / Unknown Non-blood Collection / Unknown 03/12/2025 7:58 AM EST 03/12/2025 9:09 AM EST us Ale Curry MD LAB BODY FLUIDS AND STO OLS ORDERABLES Final Result Performing Organization Address [facility]/ZIP Co de Phone Number [facility] [address] [place] [address], [place] [phone] * (ABNORMAL) Vitamin D 25 hydroxy (03/12/2025 7:58 AM EST) Vit D, 25-Hydroxy 29.8(L) 30.0 - 80.0 ng/mL 03/12/2025 11:19 AM EST [facility] Blood Venous blood specimen / Unknown Venipuncture / Unknown 03/12/2025 7:58 AM EST 03/12/2025 9:09 AM EST us Ale Curry MD LAB BLOOD ORDERABLES Fi nal Result Performing Organization Address [facility] Co de Phone Number [facility] [address] [place] [address], [place] [phone] * Uric acid (03/12/2025 7:58 AM EST) Uric Acid 4.3 3.1 - 7.8 mg/dL 03/12/2025 11:26 AM EST [facility] Blood Venous blood specimen / Unknown Venipuncture / Unknown 03/12/2025 7:58 AM EST 03/12/2025 9:09 AM EST us Ale Curry MD LAB BLOOD ORDERABLES Fi nal Result Performing Organization Address City/[facility]/ZIP Co de Phone Number [facility] [address] [place] [address], [place] [phone] * Triiodothyronine free (03/12/2025 7:58 AM EST) T3, Free 271 230 - 420 pcg/dL 03/12/2025 3:12 PM EST [facility] Blood Venous blood specimen / Unknown Venipuncture / Unknown 03/12/2025 7:58 AM EST 03/12/2025 9:09 AM EST Ale Curry MD LAB BLOOD ORDERABLES Fi nal Result Performing Organization Address City/[facility]/ZIP Co de Phone Number [facility] [address] [place] [address], * Vitamin B1 (03/12/2025 7:58 AM EST) [facility] Vitamin B1 Whole Blood 72 38 - 122 ug/L 03/19/2025 7:09 AM EST [facility] Comment: This test was developed and the performance characteristics determined by [facility]. It has not been cleared or approved by the FDA. The laboratory is regulated under CLIA as qualified to perform high-complexity testing. This test is used for patient testing purposes. It should not be regarded as investigational or for research. Test performed at [facility], [address], [place], [place] [id number] Jessica Clemons MD, PhD - Cut Filer Blood Venous blood specimen / Unknown Venipuncture / Unknown 03/12/2025 7:58 AM EST 03/12/2025 9:09 AM EST Ale Curry MD LAB BLOOD ORDERABLES Fi nal Result [facility] [address] [place] [address] * Parathyroid hormone intact (03/12/2025 7:58 AM EST) [facility] PTH 57.1 18.5 - 88.0 pcg/mL 03/12/2025 11:16 AM EST [facility] Blood Venous blood specimen / Unknown Venipuncture / Unknown 03/12/2025 7:58 AM EST 03/12/2025 9:09 AM EST us Ale Curry MD LAB BLOOD ORDERABLES Fi nal Result Performing Organization Address [facility]/ZIP Co de Phone Number [facility] [address] [place] [address], [place] [phone] * Hemoglobin A1c (03/12/2025 7:58 AM EST) Hemoglobin A1C 6.2 <6.5 % LAB CHEMISTRY METHOD 03/12/2025 12:43 PM EST [facility] Mean Bld Glu Estim. 131 mg/dL LAB CHEMISTRY METHOD 03/12/2025 12:43 PM EST [facility] Blood Venous blood specimen / Unknown Venipuncture / Unknown 03/12/2025 7:58 AM EST 03/12/2025 9:09 AM EST us Ale Curry MD LAB BLOOD ORDERABLES Fi nal Result Performing Organization Address [facility]/ZIP Co de Phone Number [facility] [address] [place] [address], [place] [phone] * Folate (03/12/2025 7:58 AM EST) Folate 18.4 >=5.4 ng/ml 03/12/2025 11:19 AM EST [facility] Blood Venous blood specimen / Unknown Venipuncture / Unknown 03/12/2025 7:58 AM EST 03/12/2025 9:09 AM EST Narrative [facility] - 03/12/2025 11:19 AM EST Over the counter supplements containing high doses of biotin may interfere with this assay. If interference is suspected, patients shoud be retested after refraining from biotin supplements for 72 hours. us Ale Curry MD LAB BLOOD ORDERABLES Fi nal Result Performing Organization Address [facility]/ZIP Co de Phone Number [facility] [address] [place] [address], [place] [phone] * Ferritin (03/12/2025 7:58 AM EST) Ferritin 39 7 - 271 ng/mL 03/12/2025 11:19 AM EST [facility] Blood Venous blood specimen / Unknown Venipuncture / Unknown 03/12/2025 7:58 AM EST 03/12/2025 9:09 AM EST us Ale Curry MD LAB BLOOD ORDERABLES Fi nal Result Performing Organization Address [facility] de Phone Number [facility] [address] [place] [address], [place] [phone] * Vitamin B12 (03/12/2025 7:58 AM EST) Vitamin B-12 416 211 - 911 pcg/mL 03/12/2025 11:21 AM EST [facility] Blood Venous blood specimen / Unknown Venipuncture / Unknown 03/12/2025 7:58 AM EST 03/12/2025 9:09 AM EST us Ale Curry MD LAB BLOOD ORDERABLES Fi nal Result Performing Organization Address City/[facility] Co de Phone Number [facility] [address] [place] [address], [place] [phone] * Cortisol (03/12/2025 7:58 AM EST) Cortisol 13.2 mcg/dL 03/12/2025 11:15 AM EST [facility] Blood Venous blood specimen / Unknown Venipuncture / Unknown 03/12/2025 7:58 AM EST 03/12/2025 9:09 AM EST Narrative [facility] - 03/12/2025 11:15 AM EST CORTISOL REFERENCE RANGE 8 AM SPEC: 5.0-23.0 mcg/dL 4 PM SPEC: 3.0-16.0 mcg/dL 8 PM SPEC: <5.0 mcg/dL us Ale Curry MD LAB BLOOD ORDERABLES nal Result [facility] [address] [place] [address], * (ABNORMAL) Comprehensive metabolic panel (03/12/2025 7:58 AM EST) Sodium 139 133 - 145 mmol/L 03/12/2025 11:26 AM [facility] Potassium 4.4 3.5 - 5.5 mmol/L 03/12/2025 11:26 AM [facility] Chloride 105 96 - 110 mmol/L 03/12/2025 11:26 AM [facility] CO2 27 21 - 32 mmol/L 03/12/2025 11:26 AM [facility] Anion Gap 7 3 - 11 03/12/2025 11:26 AM [facility] Glucose 113(H) 70 - 100 mg/dL 03/12/2025 11:26 AM [facility] BUN 16 5 - 25 mg/dL 03/12/2025 11:26 AM [facility] Creatinine 1.01 0.50 - 1.10 mg/dL 03/12/2025 11:26 AM [facility] eGFR 65 >=60 mL/min/1. 73m2 03/12/2025 11:26 AM [facility] Comment:Calculation based on the Chronic Kidney Disease Epidemiology Collaboration (CKD-EPI) equation refit without adjustment for race. BUN/Creatinine Ratio 15.8 03/12/2025 11:26 AM [facility] Calcium 8.4(L) 8.5 - 10.5 mg/dL 03/12/2025 11:26 AM [facility] AST (SGOT) 23 10 - 42 unit/L 03/12/2025 11:26 AM [facility] ALT (SGPT) 21 10 - 60 unit/L 03/12/2025 11:26 AM [facility] Alkaline Phosphatase 68 42 - 121 unit/L 03/12/2025 11:26 AM [facility] Total Protein 7.2 6.0 - 8.0 g/dL 03/12/2025 11:26 AM [facility] Albumin 4.1 3.2 - 5.0 g/dL 03/12/2025 11:26 AM [facility] Total Bilirubin 0.4 0.0 - 1.4 mg/dL 03/12/2025 11:26 AM [facility] Blood Venous blood specimen / Unknown Venipuncture / Unknown 03/12/2025 7:58 AM EST 03/12/2025 9:09 AM EST Ale Curry MD LAB BLOOD ORDERABLES Fi nal Result [facility] [address] [place] [address], * XR UGI w Air Contrast (01/13/2025 8:32 AM EDT) Anatomical Region Laterality Modality Body Radiographic Edwina ging 01/13/2025 12:1 7 PM EDT Impressions 01/13/2025 12:22 PM EDT 1. Mild esophageal dysmotility. 2. Small, sliding, axial hiatal hernia without visualized gastroesophageal reflux. -------- FINAL REPORT -------- Dictated By: MarciaJohnChantal Dictated Date: 01/13/2025 12:17 ET Assigned Physician: Hardik Spann Reviewed and Electronically Signed By: Hardik Spann Signed Date: 01/13/2025 12:22 ET Workstation ID: [id number] Transcribed By: Self Edit Transcribed Date: 01/13/2025 12:20 ET Resident/PA/BARBER INSTRUCTOR: Chantal Kennedy Narrative 01/13/2025 12:22 PM EDT FINDINGS: Double contrast UGI performed. COMPARISON: No prior upper GI imaging HISTORY: Patient is a 59-year-old female with history of gastric lap band removal in 2022. Preop gastric sleeve. INVESTIGATOR NARCOTICS radiographs: Wall Taper AP radiograph of the abdomen obtained. Bowel gas pattern is nonobstructive. Visualized lung bases are clear. Cholecystectomy clips are present. Mild to moderate bony degenerative changes are noted of the thoracolumbar spine. FINDINGS: Effervescent crystals were administered orally. Thick and thin barium was then administered orally under fluoroscopic control. Esophagus: There is mild esophageal dysmotility as demonstrated by slow transit of contrast down the esophagus and visualized tertiary contractions. Normal distensibility and mucosal pattern. There is no evidence of obstruction. There is a small, sliding, axial hiatal hernia. Stomach: Normal distensibility and motility. Prompt passage of contrast from the stomach into the duodenal bulb and sweep. No gastric mass or ulceration. Visualization of proximal small bowel is within normal limits. Gastroesophageal reflux: Not visualized DAP: 13.89 Gycm^2 Procedure Note Hardik Spann MD - 01/13/2025 FINDINGS: Double contrast UGI performed. COMPARISON: No prior upper GI imaging HISTORY: Patient is a 59-year-old female with history of gastric lap bandremoval in 2022. Preop gastric sleeve. INVESTIGATOR NARCOTICS radiographs: Wall Taper AP radiograph of the abdomen obtained. Bowel gaspattern is nonobstructive. Visualized lung bases are clear.Cholecystectomy clips are present. Mild to moderate bony degenerativechanges are noted of the thoracolumbar spine. FINDINGS: Effervescent crystals were administered orally. Thick and thinbarium was then administered orally under fluoroscopic control. Esophagus: There is mild esophageal dysmotility as demonstrated by slowtransit of contrast down the esophagus and visualized tertiarycontractions. Normal distensibility and mucosal pattern. There is noevidence of obstruction. There is a small, sliding, axial hiatal hernia. Stomach: Normal distensibility and motility. Prompt passage of contrastfrom the stomach into the duodenal bulb and sweep. No gastric mass orulceration. Visualization of proximal small bowel is within normal limits. Gastroesophageal reflux: Not visualized DAP: 13.89 Gycm^2 IMPRESSION: 1. Mild esophageal dysmotility. 2. Small, sliding, axial hiatal hernia without visualized gastroesophagealreflux. -------- FINAL REPORT -------- Dictated By: Chantal Kennedy Dictated Date: 01/13/2025 12:17 ET Assigned Physician: Hardik Spann Reviewed and Electronically Signed By: Hardik Spann Signed Date: 01/13/2025 12:22 ET Workstation ID: [id number] Transcribed By: Self Edit Transcribed Date: 01/13/2025 12:20 ET Resident/PA/BARBER INSTRUCTOR: Chantal Kennedy Ale Curry MD IMG FLUOROSCOPY PROCEDU RES Final Result from Last 3 Months Insurance MEDICARE [facility] Advance Directives Documents on File Type Date Recorded Patient Multimedia Manager Expl anation Health Care Decision (hx) 08/20/2021 AD FARAH DIRECTIVE Health Care Decision (hx) 08/20/2021 AD FARAH DIRECTIVE Health Care Decision (hx) 08/20/2021 AD FARAH DIRECTIVE Health Care Decision (hx) 08/20/2021 AD FARAH DIRECTIVE Health Care Decision (hx) 08/20/2021 AD FARAH DIRECTIVE Health Care Decision (hx) 08/20/2021 AD FARAH DIRECTIVE Health Care Decision (hx) 08/20/2021 AD FARAH DIRECTIVE Health Care Decision (hx) 08/20/2021 AD FARAH DIRECTIVE Health Care Decision (hx) 08/20/2021 AD FARAH DIRECTIVE Care Teams Field Radio 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
== END 2025-03-24 14:07 | disposition home or self-care (01) ==
PROVIDERS: Visit Provider Internal Medicine Gastroenterology
DX: R14.0 Abdominal distension (gaseous) (principal)
CPT/HCPCS: 99213